=== PATIENT | female | born 1955 | race Caucasian/White ===

== ENCOUNTER 2016-04-22 18:05 | Inpatient (IN) | payer OTHER ==
[~2016-04-22] VITALS: Ht 160 cm; Wt 137.8 kg
[~2016-04-22 18:05] MED LIST: ALEN70TA2 PO; AMIO200T4 PO; ARFO15NE NEB; ATOR-14 PO; ATRINSX NEB; BUDE0.5S NEB; CALC-574 PO; CALC200S7; CITA20TA4 PO; CMD5 PO; CRFUDL PO; DILT360C22 PO; ETOMIDATE 2 MG/ML 20 ML VIAL IV ONE; FLUT0.15 INH; FRRS300 PO; FRS/40 PO; GUAI1TAB55 PO; INSDGIPEN SC; INSUINJ8 SC; IPRASOL4 INH; LCTX PO; LPR25 PO; MAGN400T6 PO; MRLP17X PO; NRN100 PO; NVLGI/PEN SQ; NVLGIPEN SQ; OXGN; POTA20TA16 PO; PRED20TA PO; PRT40 PO; ROCURONIUM BROMIDE 10 MG/ML 10 ML VIAL IV ONE; SITA50TA3 PO; SNG10 PO; TIOTCAP INH; XOPENEX INH; XPNINS31 NEB
[2016-04-22] MEDS ORDERED: NALOXONE HCL 0.4 MG/1 ML VIAL/CARP IV STA (18:14)
[2016-04-22] MEDS ORDERED: NALOXONE HCL 0.4 MG/1 ML VIAL/CARP ONE (18:15)
--- NOTE | 2016-04-22 18:17 | EMERGENCY ROOM VISIT NOTE ---
History Report prepared by Lance: Segundo Mackenzie Under the Supervision of: Dr. Ric Cantor D.O. First contact with patient: 18:06 Chief Complaint: ALTERED MENTAL STATUS Stated Complaint: ALTERED MENTAL STATUS History of Present Illness The patient is a 60 year old female who presents to the Emergency Room with complaints of persistent altered mental status that started prior to arrival. Per EMS, the patient is coming from [facility] and she is hypoglycemic. Her blood sugars are in the 30s currently. The patient is not responding well, and has a bit of wheezing bilaterally. She was started on fluids. The patient is normally on 6 liters of oxygen, but was put on 15 liters by EMS. She is on Coumadin. The patient has COPD. History is limited secondary to patient's altered mental status. Source of History: EMS, nursing staff History Limited By: other (altered mental status) Onset: Prior to arrival Position: other (global - altered mental status) Timing: other (persistent) Note: Associated symptoms: Not responding well, hypoglycemic, bit of wheezing bilaterally. Review of Systems HPI limited secondary to patient's altered mental status. 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 Cannon (4) S/P tonsillectomy and adenoidectomy (5) Status post cholecystectomy (6) Status post tubal ligation Family History Family history omitted secondary to patient's altered mental status. Social History Marital Status: Occupation Status: disabled Social History: Social history limited secondary to patient's altered mental status. Current/Historical Medications Scheduled Alendronate Sodium (Fosamax), 70 MG PO WK Amiodarone Hcl (Cordarone), 200 MG PO TID Arformoterol Tartrate (Brovana), 2 ML NEB Q12 Atorvastatin (Lipitor), 10 MG PO HS Budesonide Soln (Pulmicort Respules 0.5MG/2ML), 2 ML NEB Q12 Calcitonin (Esbon) (Miacalcin), 1 SPRAY NA DAILY Calcium Carbonate-Cholecalcife (Calcium 600+D3 600-400 mg-Unit), 1 TAB PO BID Citalopram Hydrobromide (Citalopram Hydrobromide), 20 MG PO QAM Diltiazem Hcl Extended Release (Tiazac 360 Mg), 360 MG PO DAILY Docusate Sodium (Docusate Sodium), 100 MG PO BID Ferrous Sulfate (Ferrous Sulfate), 325 MG PO TID Furosemide (Lasix), 40 MG PO BID Furosemide (Lasix), 80 MG PO BID Gabapentin (Gabapentin), 200 MG PO HS Insulin Aspart (Novolog Flexpen), 22 UNITS SQ BID Insulin Aspart (Novolog Flexpen), 18 UNITS SQ LUNCH Insulin Aspart (Novolog Flexpen), 10 UNITS SQ QPM Insulin Aspart (Novolog Flexpen), 1 DOSE SQ ACHS Insulin Glargine (Lantus Solostar), 30 UNIT SC BID Lactobacillus Acidophilus (Floranex), 1 TAB PO BID Magnesium Oxide (Mag-Ox), 400 MG PO BID Metoprolol Tartrate (Lopressor), 25 MG PO BID Montelukast Sod (Montelukast Sodium), 10 MG PO QPM Nystatin (Topical) (Nystatin), 1 DOSE TOP BID Oxygen (Oxygen), 3-6 LITERS NA UD Pantoprazole (Protonix), 40 MG PO DAILY Potassium Ext Rel (Klor-Con), 20 MEQ PO BID Prednisone (Prednisone Tab), 40 MG PO QAM Prednisone (Prednisone), 30 MG PO QAM Prednisone (Prednisone), 20 MG PO QAM Prednisone (Prednisone), 10 MG PO QAM Sennosides-Docusate Sodium (Senna S), 1 TAB PO NOON Sitagliptin (Januvia), 50 MG PO QAM Sucralfate (Sucralfate), 1 GM PO QID Umeclidinium Roxana (Incruse Ellipta), 1 PUFF PO DAILY Warfarin Sod (Coumadin), 2.5 MG PO DIRECTED Scheduled PRN Ipratropium-Albuterol (Duoneb), 1 TREATMENT INH 2-4 times/day PRN for cough/sob/ whz Polyethylene (Miralax), 17 GM PO DAILY PRN for Constipation [Xopenex], 2 PUFFS INH Q4H PRN for Shortness of Breath Allergies Coded Allergies: POLLEN (Verified Allergy, Intermediate, /, 04/22/16) Physical Exam Vital Signs Date Time Temp Pulse Resp B/P Pulse Ox O2 Delivery O2 Flow Rate FiO2 04/22/16 22:05 84/49 04/22/16 22:00 93 20 85 Mechanical Ventilator 30 04/22/16 21:59 97/47 04/22/16 21:54 95/47 04/22/16 21:49 93/47 04/22/16 21:48 40 04/22/16 21:44 95/50 04/22/16 21:39 95/49 04/22/16 21:34 97/51 04/22/16 21:30 91 28 98 Mechanical Ventilator 04/22/16 21:29 94/59 04/22/16 21:24 112/47 04/22/16 21:19 103/61 04/22/16 21:14 107/49 04/22/16 21:09 102/49 04/22/16 21:04 108/56 04/22/16 21:00 97 23 95 Mechanical Ventilator 04/22/16 20:59 108/50 04/22/16 20:54 103/66 04/22/16 20:49 94/66 04/22/16 20:44 104/54 04/22/16 20:39 108/56 04/22/16 20:34 104/50 04/22/16 20:30 87 21 98 Mechanical Ventilator 04/22/16 20:25 107/51 04/22/16 20:23 89/55 04/22/16 20:21 90/55 04/22/16 20:19 100/54 04/22/16 20:17 102/52 04/22/16 20:15 99/62 04/22/16 20:13 90/56 04/22/16 20:11 80/45 04/22/16 20:10 95 22 90 Mechanical Ventilator 40 04/22/16 20:09 92/47 04/22/16 20:07 83/43 04/22/16 20:05 86/47 04/22/16 20:03 83/46 04/22/16 20:01 89/72 04/22/16 19:59 80/51 04/22/16 19:57 88/46 04/22/16 19:55 69/42 04/22/16 19:53 86/47 04/22/16 19:51 78/45 04/22/16 19:50 101 24 98 Mechanical Ventilator 04/22/16 19:49 82/42 04/22/16 19:47 81/46 04/22/16 19:45 90/41 04/22/16 19:43 76/50 04/22/16 19:41 90/42 04/22/16 19:39 72/46 04/22/16 19:37 74/49 04/22/16 19:35 81/44 04/22/16 19:33 76/48 04/22/16 19:31 76/45 04/22/16 19:30 100 26 98 Mechanical Ventilator 04/22/16 19:13 98 77/42 04/22/16 19:11 74/45 04/22/16 19:10 94 20 96 Mechanical Ventilator 04/22/16 19:09 76/47 04/22/16 19:07 69/40 04/22/16 19:05 103 23 77/39 89 Mechanical Ventilator 04/22/16 19:03 80/39 04/22/16 19:01 81/42 04/22/16 19:00 104 22 90 04/22/16 19:00 106 30 83/43 90 Mechanical Ventilator 04/22/16 18:56 102 24 84/43 91 Mechanical Ventilator 04/22/16 18:54 102 22 75/43 92 Mechanical Ventilator 04/22/16 18:53 30 04/22/16 18:48 106 24 85/52 92 Mechanical Ventilator 04/22/16 18:48 91 Mechanical Ventilator 04/22/16 18:28 110 24 130/59 99 Non-Rebreather 15.0 04/22/16 18:17 103 04/22/16 18:05 106 24 141/65 100 Non-Rebreather Physical Exam GENERAL: Patient is obtunded, responds to painful and loud verbal stimuli by opening eyes but not answering. EYES: Pupils constricted bilaterally. Patient looks around room. EARS, NOSE, MOUTH AND THROAT: The nose is without any evidence of any deformity. Mucous membranes are moist tongue is midline NECK: The neck is nontender and supple. RESPIRATORY: Lung sounds diminished throughout, expiratory wheezing in all mckeon with prolonged expiratory phase noted. CARDIOVASCULAR: Regular rate and rhythm noted there no murmurs rubs or gallops normal S1 normal S2 GASTROINTESTINAL: Significant abdominal breathing noted. MUSCULOSKELETAL/EXTREMITIES: There is no evidence of gross deformity full range of motion is noted in the hips and shoulders SKIN: Pedal edema bilaterally. NEUROLOGIC: GCS of 6. Medical Decision & Procedures ER Provider Diagnostic Interpretation: X-ray results as stated below per interpretation by me and the radiologist. CHEST ONE VIEW PORTABLE HISTORY: Sepsis COMPARISON: Chest 04/14/2016. FINDINGS: Endotracheal tube terminates 2.9 cm from the estella. Right jugular Port-A-Cath terminates in the SVC. Metallic fiducial markers are noted within the left upper lobe. No pneumothorax. The heart remains mildly enlarged. Bilateral pleural effusions and bibasilar densities have improved. Pulmonary edema has also slightly improved. There is a new linear density within the right mid to lower lung zone which may represent atelectasis. Left upper lobe nodularity persists. IMPRESSION: 1. Improvement in the pulmonary edema and bibasilar densities/effusions. 2. Satisfactory support line placement. Electronically signed by: Glen Magana M.D. 04/22/2016 6:55 PM CHEST ONE VIEW PORTABLE HISTORY: central line placement COMPARISON: Chest 04/22/2016. FINDINGS: There has been interval placement left jugular central venous catheter which terminates in the SVC. No pneumothorax. Right jugular Port-A-Cath in the endotracheal tube remain unchanged in position. Mild pulmonary edema, cardiomegaly, and bibasilar densities persist. IMPRESSION: 1. Satisfactory support line placement. No pneumothorax. 2. Pulmonary edema, basilar densities and small bilateral pleural effusions persist. Electronically signed by: Glen Magana M.D. 04/22/2016 8:37 PM Laboratory Results Test 04/22/16 18:15 04/22/16 18:22 04/22/16 18:30 04/22/16 21:04 Neutrophils % (Manual) 70.5 % Lymphocytes % (Manual) 1.7 % Monocytes % (Manual) 1.7 % Metamyelocytes % 14.8 % Myelocytes % 11.3 % Neutrophils # (Manual) 5.76 K/uL (1.4-6.5) Total Absolute Neutrophils 5.76 K/uL (1.4-6.5) Lymphocytes # (Manual) 0.14 K/uL (1.2-3.4) Total Absolute Lymphocytes 0.14 K/uL (1.2-3.4) Monocytes # (Manual) 0.14 K/uL (0.11-0.59) Metamyelocytes # 1.21 K/uL (0-0) Myelocytes # 0.92 K/uL (0-0) Basophilic Stippling 1+ Stomatocytes 2+ Erythrocyte Sedimentation Rate 17 mm/hr (0-21) Activated Partial Thromboplast Time 34.5 SECONDS (21.0-31.0) Partial Thromboplastin Ratio 1.3 Total Bilirubin 1.1 mg/dl (0.2-1) Aspartate Amino Transf (AST/SGOT) 44 U/L (15-37) Alanine Aminotransferase (ALT/SGPT) 86 U/L (12-78) Alkaline Phosphatase 171 U/L (45-117) Total Creatine Kinase 20 U/L (26-192) Creatine Kinase MB 0.5 ng/ml (0.5-3.6) Creatine Kinase MB Ratio 2.5 (0-3.0) Troponin I 0.036 ng/ml (0-0.045) C-Reactive Protein 12.70 mg/dl (0-0.29) Pro-B-Type Natriuretic Peptide 851 pg/ml (0-900) Total Protein 5.2 gm/dl (6.4-8.2) Albumin 2.6 gm/dl (3.4-5.0) Globulin 2.6 gm/dl (2.5-4.0) Albumin/Globulin Ratio 1.0 (0.9-2) Lipase 88 U/L (73-393) Bedside Lactic Acid Venous 1.83 mmol/L (0.90-1.70) Venous Blood pH 7.35 (7.36-7.41) Venous Blood Partial Pressure CO2 96 mmHg (38.0-50.0) Venous Blood Partial Pressure O2 78 mmHg Venous Blood HCO3 52 mmol/L Venous Blood Oxygen Saturation 93.3 % Venous Blood Base Excess 23.0 mmol/L Urine Color ORANGE Urine Appearance CLEAR (CLEAR) Urine pH 6.0 (4.5-7.5) Urine Specific [place] 1.025 (1.000-1.030) Urine Protein 1+ (NEG) Urine Glucose (UA) NEG (NEG) Urine Ketones NEG (NEG) Urine Occult Blood NEG (NEG) Urine Nitrite POS (NEG) Urine Bilirubin NEG (NEG) Urine Urobilinogen NEG (NEG) Urine Leukocyte Esterase TRACE (NEG) Urine WBC (Auto) 1-5 /hpf (0-5) Urine RBC (Auto) 0-4 /hpf (0-4) Urine Hyaline Casts (Auto) 10-30 /lpf (0-5) Urine Epithelial Cells (Auto) >30 /lpf (0-5) Urine Bacteria (Auto) 1+ (NEG) Urine Renal Epithelial Cells 0-5 /lpf (0-5) Urine Opiates Screen POS (NEG) Urine Methadone, Qualitative NEG (NEG) Urine Barbiturates NEG (NEG) Urine Phencyclidine (PCP) Level NEG (NEG) Ur Amphetamine/Methamphetamine NEG (NEG) MDMA (Ecstasy) Screen NEG (NEG) Urine Benzodiazepines Screen POS (NEG) Urine Cocaine Metabolite NEG (NEG) Urine Marijuana (THC) NEG (NEG) Date/Time Source Procedure Growth Status 04/22/16 00:00 Nasal MRSA DNA Surveillance Screen - Final Specimen Negative for MRSA by DNA Probe Complete Laboratory results per my review. Medications Administered Medications (Trade) Dose Ordered Sig/Tez Route Start Time Stop Time Status Last Admin Dose Admin Naloxone HCl (Narcan Inj) 0.4 mg STK-MED ONCE .ROUTE 04/22/16 18:15 04/22/16 18:16 DC 04/22/16 18:15 0.4 MG Miscellaneous (Rapid Sequence Induction Bag) 1 ea STK-MED ONCE N/A 04/22/16 18:23 04/22/16 18:24 DC 04/22/16 18:23 1 EA Propofol 1 dose 1 dose STK-MED ONCE IV 04/22/16 18:38 04/22/16 18:39 DC 04/22/16 18:47 1 DOSE Sodium Chloride (Nss 1000ml) 1,000 ml @ 999 mls/hr Q1H1M STAT IV 04/22/16 19:16 04/22/16 20:16 DC 04/22/16 19:31 999 MLS/HR Midazolam HCl 2 mg 2 mg STK-MED ONCE .ROUTE 04/22/16 19:22 04/22/16 19:23 DC 04/22/16 19:32 2 MG Phenylephrine HCl/ Dextrose (Rosalino-Synephrine Inj/D5W 500ml) 502 ml @ 0 mls/hr Q0M PRN IV 04/22/16 19:45 04/23/16 00:04 DC 04/22/16 20:10 103 MLS/HR Levofloxacin (Levaquin / D5w) 750 mg NOW STAT IV 04/22/16 20:01 04/22/16 20:02 DC 04/22/16 20:23 750 MG Midazolam HCl (Versed Inj) 2 mg STK-MED ONCE .ROUTE 04/22/16 21:30 04/22/16 21:31 DC 04/22/16 21:38 2 MG Procedure Central Venous Catheter Indication: Hypotension and altered mental status. Catheter type: Triple lumen. Location: Left IJ. Verbal consent was obtained after the risks and benefits were explained, including but not limited to pneumothorax, hemothorax, vessel injury, bleeding, scarring, infection, pain, and bone/joint/nerve damage. At this time, the risks of the procedure are less than the risks of NOT performing the procedure. A time out was taken and the correct patient and site identified. The patient was placed in the supine position and the skin was prepped in the standard fashion with chlorhexidine and full sterile drapes applied. The proper landmarks were identified with ultrasound, anesthetized with 1% lidocaine without epinephrine, and the needle was inserted through the skin in the standard fashion. The needle was carefully advanced into blood vessel lumen under ultrasound guidance. The guidewire was placed uneventfully. The vessel is dilated and the catheter was placed. It was sutured into position. There was good blood return from all ports. The patient tolerated the procedure well and there were no complications. Post procedure x-ray was normal. ECG Indication: other (altered mental status) Rate (beats per minute): 99 Rhythm: atrial fibrillation, other (poor baseline) Findings: no ectopy, other (diffuse ST segment abnormalities noted) Comparison ECG Date: decreased rate otherwise no significant change from April 12 ED Course 1808: The patient was evaluated in room C8. A complete history and physical examination were performed. 1813: Ordered Narcan Inj 0.4 mg IV. 1915: Ordered NSS 1000 ml @ 999 mls/hr IV. 1956: I discussed the patient with Charis Roberts - she will evaluate the patient for further treatment. 1919: Ordered Versed Inj 2 mg IV. 2000: Ordered Levaquin / D5w 750 mg IV. 2100: I reevaluated the patient. The patient verbally expressed agreement and understanding of the treatment plan. The patient will be evaluated for further treatment. Medical Decision Differential diagnosis: Etiologies such as infections, reactive airway disease, pneumonia, pneumothorax , COPD, CHF, cardiac ischemia, pulmonary embolism, musculoskeletal, gastrointestinal, as well as others were entertained. Nursing notes reviewed. Additional history is obtained from the prehospital personnel. The patient is a 60-year-old female who presented to the emergency department for altered mental status. The patient was found to be in extremis. She was obtunded. She has a history of CHF as well as obstructive sleep apnea. The patient was intubated upon arrival because she was not protecting her airway. The patient started to respond after intubation but her blood pressure dropped significantly. She was treated with a fluid bolus but then placed on pressors after a central line was placed. The patient was reevaluated multiple times. We tried to add sedation to the patient's regimen but because of her hypotension we were careful with the sedation. I discussed his case with the on-call [facility] is group. They're familiar with the patient. They've agreed to evaluate patient in the emergency apartment for further management and disposition. Consults Time Called: 1952 Consulting Physician: Charis Roberts Returned Call: 1956 I discussed the patient with Charis Roberts - she will evaluate the patient for further treatment. Impression Primary Impression: Altered mental status Additional Impressions: Sepsis, Respiratory failure Critical Care I have personally spent greater than 60 minutes of critical care time in the direct management of this patient. This includes bedside care, interpretation of diagnostic studies, and testing, discussion with consultants, patient, and family members, and other required patient management activities. This 60 minutes is in excess of all separately billable procedures. Scribe Attestation The scribe's documentation has been prepared under my direction and personally reviewed by me in its entirety. I confirm that the note above accurately reflects all work, treatment, procedures, and medical decision making performed by me. Departure Information Dispostion Being Evaluated By Hospitalist Patient Instructions A Signature Page, My [facility]
[2016-04-22] MEDS ORDERED: RAPID SEQUENCE INDUCTION BAG ONE (18:23)
[2016-04-22] MEDS ORDERED: PROPOFOL IV EMULSION 10 MG/ML 100 ML VIAL IV ONE (18:38)
[2016-04-22 18:51] LABS: VEN BLD GAS O2 SATURATION 93.3 %
[2016-04-22] MEDS ORDERED: PROPOFOL IV EMULSION 10 MG/ML 100 ML VIAL IV STA (18:53)
--- NOTE | 2016-04-22 18:57 | DIAGNOSTIC IMAGING REPORT ---
CHEST ONE VIEW PORTABLE HISTORY: Sepsis COMPARISON: Chest 04/14/2016. FINDINGS: Endotracheal tube terminates 2.9 cm from the estella. Right jugular Port-A-Cath terminates in the SVC. Metallic fiducial markers are noted within the left upper lobe. No pneumothorax. The heart remains mildly enlarged. Bilateral pleural effusions and bibasilar densities have improved. Pulmonary edema has also slightly improved. There is a new linear density within the right mid to lower lung zone which may represent atelectasis. Left upper lobe nodularity persists. IMPRESSION: 1. Improvement in the pulmonary edema and bibasilar densities/effusions. 2. Satisfactory support line placement. Electronically signed by: Glen Magana M.D. 04/22/2016 6:55 PM
[2016-04-22 18:58] LABS: INR 2.1 (0.9-1.1); PARTIAL THROMBOPLASTIN RATIO 1.3; PROTHROMBIN TIME (PATIENT) 22.8 SECONDS (9.0-12.0)
[2016-04-22] MEDS ORDERED: CLC100 PO (19:11)
[2016-04-22 19:12] LABS: ALT/SGPT 86 U/L (12-78); BLOOD UREA NITROGEN 30 mg/dl (7-18); BUN/CREATININE RATIO 39.5 (10-20); CALCIUM 7.9 mg/dl (8.5-10.1); CHLORIDE 92 mmol/L (98-107); CREATININE 0.76 mg/dl (0.60-1.20); GLUCOSE 124 mg/dl (70-99); MAGNESIUM 1.8 mg/dl (1.8-2.4); POTASSIUM 3.2 mmol/L (3.5-5.1); SODIUM 144 mmol/L (136-145)
[2016-04-22 19:15] LABS: HEMATOCRIT 32.3 % (37-47); MEAN CELL VOLUME 102.2 fL (80-100); MEAN CORPUSCULAR HEMOGLOBIN 26.9 pg (25-34); MEAN CORPUSCULAR HGB CONC 26.3 g/dl (32-36); MEAN PLATELET VOLUME 9.1 fL (7.4-10.4); PLATELET COUNT 181 K/uL (130-400); RED BLOOD COUNT 3.16 M/uL (4.2-5.4); WHITE BLOOD COUNT 8.17 K/uL (4.8-10.8)
[2016-04-22 19:16] LABS: ALKALINE PHOSPHATASE 171 U/L (45-117); AST/SGOT 44 U/L (15-37); CKMB/CK RATIO 2.5 (0-3.0); PHOSPHORUS 2.2 mg/dl (2.5-4.9)
[2016-04-22] MEDS ORDERED: SODIUM CHLORIDE 0.9% 1000ML 1,000 ML IV STA (19:16)
[2016-04-22] MEDS ORDERED: NVLGI/PEN SQ ×2 (19:17→19:26)
[2016-04-22] MEDS ORDERED: MIDAZOLAM HCL 5 MG/ML 1 ML VIAL IV STA (19:20)
[2016-04-22] MEDS ORDERED: MIDAZOLAM HCL 1 MG/ML 2ML VIAL ONE ×3 (19:22→22:38)
[2016-04-22] MEDS ORDERED: PANT40TA PO (19:23)
[2016-04-22] MEDS ORDERED: NYST1POW7 TOP (19:23)
[2016-04-22 19:32] LABS: COMPLETE YES; HYPOCHROMIA PRESENT; LYMPH ABS # 0.14 K/uL (1.2-3.4); LYMPHOCYTE % 1.7 %; META ABS # 1.21 K/uL (0-0); METAMYELOCYTE % 14.8 %; MYELOCYTE % 11.3 %; NEUTROPHILS % 70.5 %; POLYCHROMASIA 1+; STOMATOCYTE 2+
[2016-04-22] MEDS ORDERED: PRED20TA PO (19:34)
[2016-04-22] MEDS ORDERED: PRED20TA2 PO (19:34)
[2016-04-22] MEDS ORDERED: PRED10TA PO (19:34)
[2016-04-22] MEDS ORDERED: SENN-91 PO (19:36)
[2016-04-22] MEDS ORDERED: UMEC1INH PO (19:38)
[2016-04-22] MEDS ORDERED: FURO80TA63 PO (19:43)
[2016-04-22] MEDS ORDERED: PHENYLEPHRINE HCL INJ 20 MG in DEXTROSE 5% 500ML 500 ML IV PRN ×2 (19:45→22:27)
[2016-04-22 19:52] LABS: CARBON DIOXIDE 54 mmol/L (21-32)
[2016-04-22] MEDS ORDERED: LEVAQUIN 750MG / 150ML D5W IV STA (20:01)
--- NOTE | 2016-04-22 20:38 | DIAGNOSTIC IMAGING REPORT ---
CHEST ONE VIEW PORTABLE HISTORY: central line placement COMPARISON: Chest 04/22/2016. FINDINGS: There has been interval placement left jugular central venous catheter which terminates in the SVC. No pneumothorax. Right jugular Port-A-Cath in the endotracheal tube remain unchanged in position. Mild pulmonary edema, cardiomegaly, and bibasilar densities persist. IMPRESSION: 1. Satisfactory support line placement. No pneumothorax. 2. Pulmonary edema, basilar densities and small bilateral pleural effusions persist. Electronically signed by: Glen Magana M.D. 04/22/2016 8:37 PM
[2016-04-22 21:41] LABS: BENZODIAZEPINE, URINE POS (NEG); COCAINE,URINE NEG (NEG); PHENCYCLIDINE, URINE NEG (NEG)
[2016-04-22 22:00] LABS: URINE APPEARANCE CLEAR (CLEAR); URINE COLOR ORANGE; URINE EPITHELIAL CELL AUTO >30 /lpf (0-5); URINE NITRITE POS (NEG); URINE SPECIFIC GRAVITY 1.025 (1.000-1.030); UROBILINOGEN NEG (NEG); ZZURINE CULT IF INDIC CATH NO
[2016-04-22 22:01] LABS: MANUAL MICROSCOPIC REQUIRED? NO; REVIEW REQ? YES
[2016-04-22 22:06] LABS: URINE BILIRUBIN NEG (NEG)
[2016-04-22] MEDS ORDERED: DEXTROSE 50% 50 ML SYR IV PRN (22:45)
[2016-04-22] MEDS ORDERED: GLUCAGON FOR INJ 1 MG VIAL SQ PRN (22:45)
[2016-04-22] MEDS ORDERED: POTASSIUM PHOS 3 MMOL/1 ML INFUSION IV SCH (22:45)
[2016-04-22] MEDS ORDERED: GLUCOSE 10 TABS/TUBE PO PRN (22:45)
[2016-04-22] MEDS ORDERED: GLUCOSE 40% GEL 15 GM TUBE PO PRN (22:45)
--- NOTE | 2016-04-22 22:59 | DIAGNOSTIC IMAGING REPORT ---
HEAD CT NONCONTRAST CT DOSE: 1646.23 mGy.cm HISTORY: Altered mental status. TECHNIQUE: Multiaxial CT images of the head were performed without the use of intravenous contrast. Automated exposure control was utilized for this study. Comparison: Head CT 07/13/2015. Findings: An endotracheal tube is partially visualized. Trace fluid within the sphenoid sinus and nasal cavity. Near complete opacification of the bilateral mastoid air cells. The calvarium and skull base are intact. The ventricles and sulci are within normal limits. There is no mass, hematoma, midline shift, or acute infarct. Impression: No acute intracranial abnormality. Bilateral mastoid effusions. Electronically signed by: Glen Magana M.D. 04/22/2016 10:57 PM
[2016-04-22] MEDS ORDERED: FENTANYL 1250MCG/250ML NSS 250 ML IV PRN (23:00)
[2016-04-22] MEDS ORDERED: FENTANYL CITRATE 1250MCG/250ML NSS ONE (23:12)
[2016-04-22 23:20] VITALS: BP 90/67; PULSE 103; TEMP 37.6; O2SAT 90; Ht 160 cm; Wt 137.8 kg
[2016-04-23] VITALS (56 sets, daily range): BP systolic 62–143; BP diastolic 25–81; PULSE 89–130; TEMP 37.1–38.3; O2SAT 82–98
[2016-04-23] MEDS ORDERED: FUROSEMIDE INJ 40 MG in SYRINGE 0 ML IV STA (00:05)
[2016-04-23] MEDS ORDERED: METHYLPREDNISOLONE IV 125 MG in SYRINGE 0 ML IV STA (00:06)
[2016-04-23] MEDS ORDERED: MIDAZOLAM HCL 1 MG/ML 2ML VIAL IV STA (00:12)
[2016-04-23] MEDS ORDERED: PHARMACY GLYCEMIC MGMT CONSULT PRN (00:12)
[2016-04-23] MEDS ORDERED: VANCOMYCIN CONSULT ACTIVE PRN (00:15)
[2016-04-23] MEDS ORDERED: PIPERACILL/TAZOBAC CONSULT ACTIVE PRN (00:30)
[2016-04-23] MEDS ORDERED: POTASSIUM PHOSPHATE INJ 21 MMOL in SODIUM CHLORIDE 0.9% 500ML 500 ML IV SCH (00:30)
[2016-04-23] MEDS ORDERED: PIPERACILL/TAZOBAC IV 4.5 GM in DEXTROSE 5% 100ML IV SCH (01:00)
[2016-04-23] MEDS ORDERED: LEVOFLOXACIN CONSULT ACTIVE PRN (01:00)
[2016-04-23] MEDS ORDERED: VANCOMYCIN INJ 2,800 MG in SODIUM CHLORIDE 0.9% 500ML 500 ML IV SCH (02:00)
[2016-04-23 02:03] LABS: BUN/CREATININE RATIO 42.3 (10-20); CALCIUM 7.9 mg/dl (8.5-10.1); CREATININE 0.69 mg/dl (0.60-1.20); POTASSIUM 3.6 mmol/L (3.5-5.1)
[2016-04-23] MEDS ORDERED: INSULIN ASPART 100 UNITS/ML 3 ML PEN SC SCH (03:00)
[2016-04-23] MEDS: PIPERACILL/TAZOBAC IV 4.5 GM in DEXTROSE 5% 100ML IV SCH ×3 (05:39→22:29)
[2016-04-23] MEDS: INSULIN ASPART 100 UNITS/ML 3 ML PEN SC SCH ×4 (06:00→19:56)
[2016-04-23 06:38] LABS: PROTHROMBIN TIME (PATIENT) 22.2 SECONDS (9.0-12.0)
[2016-04-23 07:33] LABS: BUN/CREATININE RATIO 38.9 (10-20); CREATININE 0.7 mg/dl (0.60-1.20); MAGNESIUM 1.6 mg/dl (1.8-2.4); PHOSPHORUS 2.9 mg/dl (2.5-4.9); POTASSIUM 4.2 mmol/L (3.5-5.1)
--- NOTE | 2016-04-23 07:49 | DIAGNOSTIC IMAGING REPORT ---
SINGLE VIEW CHEST CLINICAL HISTORY: CHF. FINDINGS: An AP, portable, upright chest radiograph is compared to study dated 04/22/2016. Correlation is made with chest CT dated 02/18/2016. The examination is degraded by portable technique, large body habitus, and patient rotation. A right subclavian central venous infusion port is unchanged in position, as are an endotracheal tube and a left internal jugular central venous catheter PA the heart is enlarged and there is atherosclerotic calcification of the thoracic aorta. Pulmonary vascular congestion and interstitial edema are similar appearance to yesterday. Emphysema is noted. Small pleural effusions and bibasilar consolidation are identified. Fiducials and nodularity in the left upper chest are unchanged from previous. No pneumothorax is seen. The skeletal structures are osteopenic. The bony thorax is grossly intact. IMPRESSION: 1. Cardiomegaly with evidence of congestive failure and interstitial edema. This is unchanged yesterday. 2. Pleural effusions and bibasilar consolidation, also unchanged. 3. Stable lines and tubes. Electronically signed by: Cyril Solorzano M.D. 04/23/2016 7:47 AM
[2016-04-23] MEDS: ARFORMOTEROL TART 15MCG/2ML VIAL INH SCH ×2 (08:05→19:35)
[2016-04-23] MEDS: BUDESONIDE 0.5 MG/2 ML VIAL (PULMICORT) INH SCH ×2 (08:05→19:35)
[2016-04-23 08:43] LABS: BASO % 0.1 %; BASO ABS # 0.02 K/uL (0-0.2); COMPLETE YES; EOS % 0.1 %; HEMATOCRIT 30.2 % (37-47); IG% 1.9 %; LYMPH % 0.7 %; MEAN CELL VOLUME 100.3 fL (80-100); MEAN CORPUSCULAR HEMOGLOBIN 26.6 pg (25-34); MEAN CORPUSCULAR HGB CONC 26.5 g/dl (32-36); MEAN PLATELET VOLUME 9.1 fL (7.4-10.4); MONO % 1.8 %; NEUT % 95.4 %; PLATELET COUNT 164 K/uL (130-400); RED BLOOD COUNT 3.01 M/uL (4.2-5.4); WHITE BLOOD COUNT 13.84 K/uL (4.8-10.8)
[2016-04-23 08:47] LABS: ANISOCYTOSIS PRESENT; DOHLE BODIES 1+; HYPOCHROMIA PRESENT; POLYCHROMASIA 2+; TOXIC GRANULATION 1+
[2016-04-23] MEDS: NYSTATIN POWDER 15GM BTL EXT SCH ×2 (09:00→20:04)
[2016-04-23] MEDS ORDERED: METOPROLOL TARTRATE 25 MG TAB PO SCH (09:00)
[2016-04-23] MEDS ORDERED: INSULIN GLARGINE SOLOSTAR 100 UNITS/ML 3 ML PEN SC ONE (09:00)
[2016-04-23] MEDS ORDERED: DILTIAZEM HCL (TIAzac) 180 MG CAPCR PO SCH (09:00)
--- NOTE | 2016-04-23 09:17 | History and Physical ---
History & Physical Date & Time of Service: Apr 23, 2016 at 09:03 Delayed entry date of service 04/22/16 Chief Complaint: Respiratory Failure Primary Care Physician: Gogo Shannon History of Present Illness Source: patient, clinic records, hospital records 60 year old female with history of Chronic Respiratory Failure, COPD, Obstructive Sleep Apnea, Obesity Hypoventilation Syndrome, CHF Diastolic Type, presenting with progressive shortness of breath x few days. Patient was recently discharged from [facility] last 04/16/16 for respiratory failure , felt to be from Bipap Noncompliance. She was discharged with Prednisone course. History obtained from ER records as patient was intubated. Attempted to call patient's but no answer. Patient apparently was reporting increased shortness of breath and cough for the past few days. On the day of admission, patient had worsening shortness of breath. She was also found to be hypoglycemic in the 30s. EMS summoned, patient given Dextrose. At the ER, patient was found to be more obtunded and in respiratory distress. She was intubated and started on Propofol. However, patient was then noted to be hypotensive and had to be started on Phenylephrine. When I examined the patient, she opens her eyes to verbal stimuli and follows simple commands- open/close eyes, squeeze examiner's fingers. 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[facility] 2013 Status: Chronic (3) Depression Status: Chronic (4) Diabetes mellitus, type II Status: Chronic (5) Diastolic CHF, chronic Status: Chronic (6) Gastroesophageal reflux disease Status: Chronic (7) GI (gastrointestinal bleed) Status: Chronic (8) HTN (hypertension) Status: Chronic (9) Osteoporosis Status: Chronic (10) Proteinuria Status: Chronic (11) Respiratory failure, chronic Permanent Comment: O2 / BiPAP / steroid dependent Status: Chronic (12) Sleep apnea Permanent Comment: BiPAP 01/10 with O2 6 LPM Status: Chronic (13) SOB (shortness of breath) Status: Chronic (14) 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 Permanent Comment: Oxygen and steroid dependent COPD Recurrent pneumonia Finding of a left upper lobe nodule Status post bronchoscopy and biopsy 07/03/2015 revealing a well-differentiated squamous cell carcinoma Placement of fiducial markers Status post completion of radiation therapy utilizing SBRT 11/14/2015 received 5000 cGy Status: Chronic (15) Symptomatic anemia Status: Chronic Surgical Problems: (1) H/O colonoscopy Permanent Comment: 09/2014 - diverticulosis Status: Chronic (2) H/O esophagogastroduodenoscopy Permanent Comment: 05/2015 - non bleeding gastric ulcers Status: Chronic (3) Navigational Bronchoscopy 07-04-2015 Dr. Cannon Status: Resolved (4) S/P tonsillectomy and adenoidectomy Status: Chronic (5) Status post cholecystectomy Status: Chronic (6) Status post tubal ligation Status: Chronic Family History Diabetes mellitus MOTHER SISTER FH: CHF (congestive heart failure) FATHER FH: COPD (chronic obstructive pulmonary disease) FATHER Hypertension Kidney disease Social History Smoking Status: Former Smoker Drug Use: none Marital Status: Housing status: lives with family Occupational Status: disabled Immunizations History of Influenza Vaccine: Yes Influenza Vaccine Date: Feb 12, 2015 History of Tetanus Vaccine?: Yes Tetanus Immunization Date: Nov 30, 2007 History of Pneumococcal: Yes Pneumococcal Date: Feb 12, 2015 History of Hepatitis B Vaccine: No Allergies Coded Allergies: POLLEN (Verified Allergy, Intermediate, /, 04/22/16) Home Medications Scheduled Alendronate Sodium (Fosamax), 70 MG PO WK Amiodarone Hcl (Cordarone), 200 MG PO TID Arformoterol Tartrate (Brovana), 2 ML NEB Q12 Atorvastatin (Lipitor), 10 MG PO HS Budesonide Soln (Pulmicort Respules 0.5MG/2ML), 2 ML NEB Q12 Calcitonin ([place]) (Miacalcin), 1 SPRAY NA DAILY Calcium Carbonate-Cholecalcife (Calcium 600+D3 600-400 mg-Unit), 1 TAB PO BID Citalopram Hydrobromide (Citalopram Hydrobromide), 20 MG PO QAM Diltiazem Hcl Extended Release (Tiazac 360 Mg), 360 MG PO DAILY Docusate Sodium (Docusate Sodium), 100 MG PO BID Ferrous Sulfate (Ferrous Sulfate), 325 MG PO TID Furosemide (Lasix), 40 MG PO BID Furosemide (Lasix), 80 MG PO BID Gabapentin (Gabapentin), 200 MG PO HS Insulin Aspart (Novolog Flexpen), 22 UNITS SQ BID Insulin Aspart (Novolog Flexpen), 18 UNITS SQ LUNCH Insulin Aspart (Novolog Flexpen), 10 UNITS SQ QPM Insulin Aspart (Novolog Flexpen), 1 DOSE SQ ACHS Insulin Glargine (Lantus Solostar), 30 UNIT SC BID Lactobacillus Acidophilus (Floranex), 1 TAB PO BID Magnesium Oxide (Mag-Ox), 400 MG PO BID Metoprolol Tartrate (Lopressor), 25 MG PO BID Montelukast Sod (Montelukast Sodium), 10 MG PO QPM Nystatin (Topical) (Nystatin), 1 DOSE TOP BID Oxygen (Oxygen), 3-6 LITERS NA UD Pantoprazole (Protonix), 40 MG PO DAILY Potassium Ext Rel (Klor-Con), 20 MEQ PO BID Prednisone (Prednisone Tab), 40 MG PO QAM Prednisone (Prednisone), 30 MG PO QAM Prednisone (Prednisone), 20 MG PO QAM Prednisone (Prednisone), 10 MG PO QAM Sennosides-Docusate Sodium (Senna S), 1 TAB PO NOON Sitagliptin (Januvia), 50 MG PO QAM Sucralfate (Sucralfate), 1 GM PO QID Umeclidinium [place] (Incruse Ellipta), 1 PUFF PO DAILY Warfarin Sod (Coumadin), 2.5 MG PO DIRECTED Scheduled PRN Ipratropium-Albuterol (Duoneb), 1 TREATMENT INH 2-4 times/day PRN for cough/sob/ whz Polyethylene (Miralax), 17 GM PO DAILY PRN for Constipation [Xopenex], 2 PUFFS INH Q4H PRN for Shortness of Breath Review of Systems difficult to assess as patient is intubated Physical Exam Vital Signs Date Time Temp Pulse Resp B/P Pulse Ox O2 Delivery O2 Flow Rate FiO2 04/23/16 06:00 38.3 109 25 109/63 93 Mechanical Ventilator 40 04/23/16 05:22 40 04/23/16 04:00 40 04/23/16 04:00 96 Mechanical Ventilator 40 04/23/16 04:00 38.1 95 20 94/55 96 Mechanical Ventilator 40 04/23/16 02:53 40 04/23/16 02:00 37.8 95 21 95/61 95 Mechanical Ventilator 40 04/23/16 00:36 40 04/23/16 00:01 93 Mechanical Ventilator 04/23/16 00:01 93 Mechanical Ventilator 40 04/23/16 00:01 40 04/23/16 00:01 37.6 98 23 100/45 93 Mechanical Ventilator 40 04/22/16 23:20 37.6 103 29 90/67 90 Mechanical Ventilator 40 04/22/16 22:29 113/54 04/22/16 22:24 114/56 04/22/16 22:19 84 20 94/61 95 04/22/16 22:17 84 04/22/16 22:14 108/54 98 Mechanical Ventilator 40 04/22/16 22:09 94/56 04/22/16 22:05 84/49 04/22/16 22:00 93 20 85 Mechanical Ventilator 30 04/22/16 21:59 97/47 04/22/16 21:54 95/47 04/22/16 21:49 93/47 04/22/16 21:48 40 04/22/16 21:44 95/50 04/22/16 21:39 95/49 04/22/16 21:34 97/51 04/22/16 21:30 91 28 98 Mechanical Ventilator 04/22/16 21:29 94/59 04/22/16 21:24 112/47 04/22/16 21:19 103/61 04/22/16 21:14 107/49 04/22/16 21:09 102/49 04/22/16 21:04 108/56 04/22/16 21:00 97 23 95 Mechanical Ventilator 04/22/16 20:59 108/50 04/22/16 20:54 103/66 04/22/16 20:49 94/66 04/22/16 20:44 104/54 04/22/16 20:39 108/56 04/22/16 20:34 104/50 04/22/16 20:30 87 21 98 Mechanical Ventilator 04/22/16 20:25 107/51 04/22/16 20:23 89/55 04/22/16 20:21 90/55 04/22/16 20:19 100/54 04/22/16 20:17 102/52 04/22/16 20:15 99/62 04/22/16 20:13 90/56 04/22/16 20:11 80/45 04/22/16 20:10 95 22 90 Mechanical Ventilator 40 04/22/16 20:09 92/47 04/22/16 20:07 83/43 04/22/16 20:05 86/47 04/22/16 20:03 83/46 04/22/16 20:01 89/72 04/22/16 19:59 80/51 04/22/16 19:57 88/46 04/22/16 19:55 69/42 04/22/16 19:53 86/47 04/22/16 19:51 78/45 04/22/16 19:50 101 24 98 Mechanical Ventilator 04/22/16 19:49 82/42 04/22/16 19:47 81/46 04/22/16 19:45 90/41 04/22/16 19:43 76/50 04/22/16 19:41 90/42 04/22/16 19:39 72/46 04/22/16 19:37 74/49 04/22/16 19:35 81/44 04/22/16 19:33 76/48 04/22/16 19:31 76/45 04/22/16 19:30 100 26 98 Mechanical Ventilator 04/22/16 19:13 98 77/42 04/22/16 19:11 74/45 04/22/16 19:10 94 20 96 Mechanical Ventilator 04/22/16 19:09 76/47 04/22/16 19:07 69/40 04/22/16 19:05 103 23 77/39 89 Mechanical Ventilator 04/22/16 19:03 80/39 04/22/16 19:01 81/42 04/22/16 19:00 104 22 90 04/22/16 19:00 106 30 83/43 90 Mechanical Ventilator 04/22/16 18:56 102 24 84/43 91 Mechanical Ventilator 04/22/16 18:54 102 22 75/43 92 Mechanical Ventilator 04/22/16 18:53 30 04/22/16 18:48 106 24 85/52 92 Mechanical Ventilator 04/22/16 18:48 91 Mechanical Ventilator 04/22/16 18:28 110 24 130/59 99 Non-Rebreather 15.0 04/22/16 18:17 103 04/22/16 18:05 106 24 141/65 100 Non-Rebreather General Appearance: WD/WN, + pertinent finding (intubated, not in distress, no accessory muscle use) Head: normocephalic, atraumatic Eyes: normal inspection, PERRL, EOMI, sclerae normal ENT: hearing grossly normal, + pertinent finding ((+) intubated) Neck: no adenopathy, thyroid normal, + pertinent finding (JVD) Respiratory/Chest: + pertinent finding ((+) bilateral crackles, wheezing) Cardiovascular: + irregularly irregular, + pertinent finding (mild lower leg edema, wrapped with dressing) Abdomen/GI: normal bowel sounds, non tender, soft Extremities/Musculoskelatal: + pertinent finding (mild lower leg edema, wrapped with dressing) Neurologic/Psych: + pertinent finding (pupils equal round reactive to light, moves all extremities equally) Skin: normal color, warm/dry Lymphatic: no adenopathy Diagnostics Laboratory Results Results Past 24 Hours Test 04/22/16 18:15 04/22/16 18:22 04/22/16 18:30 04/22/16 21:04 Range/Units White Blood Count 8.17 4.8-10.8 K/uL Red Blood Count 3.16 4.2-5.4 M/uL Hemoglobin 8.5 12.0-16.0 g/dL Hematocrit 32.3 37-47 % Mean Corpuscular Volume 102.2 80-100 fL Mean Corpuscular Hemoglobin 26.9 25-34 pg Mean Corpuscular Hemoglobin Concent 26.3 32-36 g/dl Platelet Count 181 130-400 K/uL Mean Platelet Volume 9.1 7.4-10.4 fL RDW Standard Deviation 76.7 36.4-46.3 fL RDW Coefficient of Variation 20.5 11.5-14.5 % Nucleated RBC Absolute Count (auto) 0.24 0-0 K/uL Neutrophils % (Manual) 70.5 % Lymphocytes % (Manual) 1.7 % Monocytes % (Manual) 1.7 % Metamyelocytes % 14.8 % Myelocytes % 11.3 % Nucleated Red Blood Cells % 2.9 % Neutrophils # (Manual) 5.76 1.4-6.5 K/uL Total Absolute Neutrophils 5.76 1.4-6.5 K/uL Lymphocytes # (Manual) 0.14 1.2-3.4 K/uL Total Absolute Lymphocytes 0.14 1.2-3.4 K/uL Monocytes # (Manual) 0.14 0.11-0.59 K/uL Metamyelocytes # 1.21 0-0 K/uL Myelocytes # 0.92 0-0 K/uL Polychromasia 1+ Hypochromasia PRESENT Basophilic Stippling 1+ Stomatocytes 2+ Erythrocyte Sedimentation Rate 17 0-21 mm/hr Prothrombin Time 22.8 9.0-12.0 SECONDS Prothromb Time International Ratio 2.1 0.9-1.1 Activated Partial Thromboplast Time 34.5 21.0-31.0 SECONDS Partial Thromboplastin Ratio 1.3 Sodium Level 144 136-145 mmol/L Potassium Level 3.2 3.5-5.1 mmol/L Chloride Level 92 98-107 mmol/L Carbon Dioxide Level 54 21-32 mmol/L Anion Gap -2.0 3-11 mmol/L Blood Urea Nitrogen 30 7-18 mg/dl Creatinine 0.76 0.60-1.20 mg/dl Estimated GFR () 97.4 Estimated GFR (Non- 84.1 BUN/Creatinine Ratio 39.5 10-20 Random Glucose 124 70-99 mg/dl Calcium Level 7.9 8.5-10.1 mg/dl Phosphorus Level 2.2 2.5-4.9 mg/dl Magnesium Level 1.8 1.8-2.4 mg/dl Total Bilirubin 1.1 0.2-1 mg/dl Aspartate Amino Transf (AST/SGOT) 44 15-37 U/L Alanine Aminotransferase (ALT/SGPT) 86 12-78 U/L Alkaline Phosphatase 171 45-117 U/L Total Creatine Kinase 20 26-192 U/L Creatine Kinase MB 0.5 0.5-3.6 ng/ml Creatine Kinase MB Ratio 2.5 0-3.0 Troponin I 0.036 0-0.045 ng/ml C-Reactive Protein 12.70 0-0.29 mg/dl Pro-B-Type Natriuretic Peptide 851 0-900 pg/ml Total Protein 5.2 6.4-8.2 gm/dl Albumin 2.6 3.4-5.0 gm/dl Globulin 2.6 2.5-4.0 gm/dl Albumin/Globulin Ratio 1.0 0.9-2 Lipase 88 73-393 U/L Bedside Lactic Acid Venous 1.83 0.90-1.70 mmol/L Venous Blood pH 7.35 7.36-7.41 Venous Blood Partial Pressure CO2 96 38.0-50.0 mmHg Venous Blood Partial Pressure O2 78 mmHg Venous Blood HCO3 52 mmol/L Venous Blood Oxygen Saturation 93.3 % Venous Blood Base Excess 23.0 mmol/L Urine Color ORANGE Urine Appearance CLEAR CLEAR Urine pH 6.0 4.5-7.5 Urine Specific [place] 1.025 1.000-1.030 Urine Protein 1+ NEG Urine Glucose (UA) NEG NEG Urine Ketones NEG NEG Urine Occult Blood NEG NEG Urine Nitrite POS NEG Urine Bilirubin NEG NEG Urine Urobilinogen NEG NEG Urine Leukocyte Esterase TRACE NEG Urine WBC (Auto) 1-5 0-5 /hpf Urine RBC (Auto) 0-4 0-4 /hpf Urine Hyaline Casts (Auto) 10-30 0-5 /lpf Urine Epithelial Cells (Auto) >30 0-5 /lpf Urine Bacteria (Auto) 1+ NEG Urine Renal Epithelial Cells 0-5 0-5 /lpf Urine Opiates Screen POS NEG Urine Methadone, Qualitative NEG NEG Urine Barbiturates NEG NEG Urine Phencyclidine (PCP) Level NEG NEG Ur Amphetamine/Methamphetamine NEG NEG MDMA (Ecstasy) Screen NEG NEG Urine Benzodiazepines Screen POS NEG Urine Cocaine Metabolite NEG NEG Urine Marijuana (THC) NEG NEG Test 04/22/16 23:08 04/23/16 00:07 04/23/16 01:02 04/23/16 01:30 Range/Units Bedside Glucose 101 114 110 70-90 mg/dl Sodium Level 143 136-145 mmol/L Potassium Level 3.6 3.5-5.1 mmol/L Chloride Level 90 98-107 mmol/L Carbon Dioxide Level 50 21-32 mmol/L Anion Gap 3.0 3-11 mmol/L Blood Urea Nitrogen 29 7-18 mg/dl Creatinine 0.69 0.60-1.20 mg/dl Est Creatinine Clear Calc Drug Dose 113.7 ml/min Estimated GFR () 108.1 Estimated GFR (Non- 93.3 BUN/Creatinine Ratio 42.3 10-20 Random Glucose 121 70-99 mg/dl Calcium Level 7.9 8.5-10.1 mg/dl Phosphorus Level 2.0 2.5-4.9 mg/dl Test 04/23/16 02:02 04/23/16 03:04 04/23/16 04:21 04/23/16 05:07 Range/Units Bedside Glucose 130 114 124 133 70-90 mg/dl Test 04/23/16 06:10 04/23/16 06:11 Range/Units White Blood Count 13.84 4.8-10.8 K/uL Red Blood Count 3.01 4.2-5.4 M/uL Hemoglobin 8.0 12.0-16.0 g/dL Hematocrit 30.2 37-47 % Mean Corpuscular Volume 100.3 80-100 fL Mean Corpuscular Hemoglobin 26.6 25-34 pg Mean Corpuscular Hemoglobin Concent 26.5 32-36 g/dl Platelet Count 164 130-400 K/uL Mean Platelet Volume 9.1 7.4-10.4 fL Neutrophils (%) (Auto) 95.4 % Lymphocytes (%) (Auto) 0.7 % Monocytes (%) (Auto) 1.8 % Eosinophils (%) (Auto) 0.1 % Basophils (%) (Auto) 0.1 % Neutrophils # (Auto) 13.20 1.4-6.5 K/uL Lymphocytes # (Auto) 0.10 1.2-3.4 K/uL Monocytes # (Auto) 0.25 0.11-0.59 K/uL Eosinophils # (Auto) 0.01 0-0.5 K/uL Basophils # (Auto) 0.02 0-0.2 K/uL RDW Standard Deviation 77.2 36.4-46.3 fL RDW Coefficient of Variation 21.3 11.5-14.5 % Immature Granulocyte % (Auto) 1.9 % Immature Granulocyte # (Auto) 0.26 0.00-0.02 K/uL Nucleated RBC Absolute Count (auto) 0.09 0-0 K/uL Nucleated Red Blood Cells % 0.7 % Toxic Granulation 1+ Dohle Bodies 1+ Polychromasia 2+ Hypochromasia PRESENT Anisocytosis PRESENT Prothrombin Time 22.2 9.0-12.0 SECONDS Prothromb Time International Ratio 2.0 0.9-1.1 Sodium Level 143 136-145 mmol/L Potassium Level 4.2 3.5-5.1 mmol/L Chloride Level 92 98-107 mmol/L Carbon Dioxide Level 50 21-32 mmol/L Anion Gap 1.0 3-11 mmol/L Blood Urea Nitrogen 27 7-18 mg/dl Creatinine 0.70 0.60-1.20 mg/dl Est Creatinine Clear Calc Drug Dose 111.9 ml/min Estimated GFR () 107.6 Estimated GFR (Non- 92.9 BUN/Creatinine Ratio 38.9 10-20 Random Glucose 139 70-99 mg/dl Calcium Level 8.0 8.5-10.1 mg/dl Phosphorus Level 2.9 2.5-4.9 mg/dl Magnesium Level 1.6 1.8-2.4 mg/dl Bedside Glucose 135 70-90 mg/dl Microbiology Results 04/22/16 Blood Culture, Received Pending 04/22/16 Blood Culture, Received Pending Diagnostic Radiology cxr 1. Satisfactory support line placement. No pneumothorax. 2. Pulmonary edema, basilar densities and small bilateral pleural effusions persist. EKG HR 99, a fib Impression Assessment and Plan 60 year old female with history of Chronic Respiratory Failure, COPD, Obstructive Sleep Apnea, Obesity Hypoventilation Syndrome, CHF Diastolic Type, presenting with progressive shortness of breath x few days. ACUTE ON CHRONIC RESPIRATORY FAILURE likely from Acute Diastolic CHF Exacerbation, COPD Exacerbation, possible Pneumonia - Lasix Solumedrol Nebs empiric Vanco, Zosyn, Levaquin HYPOTENSION likely from Propofol continue Phenylpehrine, wean accordingly HYPOGLYCEMIA may need to adjust Insulin regimen ISS for now Pharmacy consulted CHRONIC A FIB continue Amio, Diltiazem, Metoprolol, Coumadin DVT prophylaxis on coumadin Code Status Full Code Disposition pending presently residing in SNF Advanced Directives Existing Advance Directive: No Existing Living Will: No Existing Power of Ceramic Plater: No VTE Prophylaxis VTE Risk Assessment Done? Y/N: Yes Risk Level: Moderate
[2016-04-23] MEDS: METHYLPREDNISOLONE IV 60 MG in SYRINGE 0 ML IV SCH ×2 (09:41→16:50)
[2016-04-23] MEDS: MAGNESIUM SULFATE 1GM / D5W 1 GM in PREMIXED IN D5W 100 ML IV SCH ×2 (09:41→10:30)
[2016-04-23] MEDS: PANTOprazole INJ 40 MG in SYRINGE 0 ML IV SCH (09:41)
[2016-04-23] MEDS: CALCITONIN SALMON NA 200 IU/AC 3.7 ML BTL SCH (09:42)
[2016-04-23] MEDS: CALCIUM 600MG + VIT D 400 IU TAB PO SCH ×2 (09:43→20:03)
[2016-04-23] MEDS: SUCRALFATE 1 GM/10 ML UDC PO SCH ×4 (09:43→19:59)
[2016-04-23] MEDS: POTASSIUM CHLORIDE 20 MEQ TABCR PO SCH ×2 (09:44→20:01)
[2016-04-23] MEDS: LACTOBACILLUS ACIDOPHILUS (FLORANEX) TAB PO SCH ×2 (09:44→20:02)
[2016-04-23] MEDS: MAGNESIUM OXIDE 400 MG TAB PO SCH ×2 (09:45→20:03)
[2016-04-23] MEDS: AMIODARONE 200 MG TAB PO SCH ×3 (09:45→20:00)
[2016-04-23] MEDS: CHLORHEXIDINE GLUCONATE 0.12% 480 ML MT SCH ×2 (10:00→19:59)
[2016-04-23 10:04] LABS: ISTAT ALLEN TEST Pass; ISTAT ARTERIAL BLOOD GAS HCO3 50 meq/L (19-24); ISTAT ARTERIAL BLOOD GAS PCO2 79 mmHg (35-46); ISTAT ARTERIAL BLOOD GAS PO2 81 mmHg (80-95); ISTAT ARTERIAL BLOOD GAS pH 7.42 (7.35-7.45); ISTAT CARBON DIOXIDE < 5 mEq/l (24-31); ISTAT DELIVERY SYSTEM Ventilator; ISTAT FIO2 40 %; ISTAT PEEP 5; ISTAT RATE 20; ISTAT SITE L Radial; VE 9.4; Vt 500
--- NOTE | 2016-04-23 11:26 | DIAGNOSTIC IMAGING REPORT ---
KUB CLINICAL HISTORY: Enteric tube placement. FINDINGS: 2 AP, portable, supine abdominal radiographs are obtained. No prior studies are available for comparison at the time of dictation. An enteric tube has been placed. The tip of the catheter projects below the diaphragm over the mid stomach. There is a nonobstructed abdominal bowel gas pattern. Mild colonic fecal retention is observed. No evidence of intraperitoneal free air is seen on these supine images. No abnormal abdominal calcifications are identified. The skeletal structures are osteopenic. Lumbosacral spondylosis is noted. IMPRESSION: 1. An enteric tube projects below the diaphragm over the mid stomach. 2. Nonobstructed abdominal bowel gas pattern. Electronically signed by: Cyril Solorzano M.D. 04/23/2016 11:24 AM
--- NOTE | 2016-04-23 12:44 | CRITICAL CARE CONSULTATION ---
DATE OF CONSULTATION: 04/23/2016 CHIEF COMPLAINT: Altered mental status. HISTORY OF PRESENT ILLNESS: Lela is a 60-year-old and woman with a history of severe chronic pulmonary disease with multiple admissions to the hospital over the past year. She was discharged on April 16 to [facility] after admission for acute on chronic hypercapnic respiratory failure. She was reportedly short of breath for several days at [facility] and was found with an altered mental status yesterday. Her blood sugar was in the 30s and she was taken to the Emergency Department. She was initially on 6 liters of oxygen and was increased to 15 liters by face mask. She was intubated due to inability to protect her airway. Post-intubation, she became hypotensive and was started on a Rosalino-Synephrine infusion. She was given fentanyl as well as Lasix 40 mg x1. She was also given Levaquin and 125 mg of Solu-Medrol. She now is in the intensive care unit awake, alert and off the Rosalino-Synephrine infusion. She denies pain but feels like she is short of breath on assist control. PAST MEDICAL HISTORY: Acute on chronic respiratory failure, atrial fibrillation, AV jones reentrant tachycardia, severe chronic obstructive pulmonary disease, diabetes mellitus, diastolic heart failure, gastroesophageal reflux disease, GI bleed, hypertension, osteoporosis, obstructive sleep apnea, squamous cell carcinoma of the bronchus of the left upper lobe. PAST SURGICAL HISTORY: Status post tonsillectomy and adenoidectomy, cholecystectomy, bilateral tubal ligation and navigational bronchoscopy. ALLERGIES: POLLEN. OUTPATIENT MEDICATIONS: Fosamax, amiodarone, Brovana, Lipitor, Pulmicort, Miacalcin, calcium carbonate, citalopram, diltiazem, Colace, ferrous sulfate, Lasix, gabapentin, NovoLog insulin, insulin sliding scale, Lantus, DuoNeb, Floranex, magnesium, Lopressor, montelukast, Nystatin, oxygen, Protonix, MiraLax, potassium, prednisone, senna, Januvia, sucralfate, Incruse Ellipta, warfarin, and Xopenex. SOCIAL HISTORY: She is a former smoker and does not drink any alcohol. She has a and a daughter. FAMILY HISTORY: Noncontributory. REVIEW OF SYSTEMS: Not obtainable as she is on the ventilator. PHYSICAL EXAMINATION: GENERAL: This is an obese, chronically ill appearing woman, awake and writing notes. She appears anxious. VITAL SIGNS: Maximum temperature 38.3, heart rate 95, respiratory rate 21, blood pressure 107/57; oxygen saturation 94%, ventilator settings assist control, rate 20, tidal volume 500, FIO2 40%, and PEEP 5. HEENT: Pupils are equally round and reactive to light. She has nagy facies. Oral examination is deferred due to the endotracheal tube and orogastric tube being in place. LUNGS: Have some mild scattered bilateral expiratory wheezes, no rhonchi or rales. HEART: Sounds are distant. No murmur. ABDOMEN: Obese, mildly tender diffusely. No rebound or guarding. Active bowel sounds. EXTREMITIES: Showed 3-4+ edema of the legs from the knees distally. She also has erythema of both legs in the same area. NEUROLOGIC: Her CAM assessment is negative. She moves all 4 extremities. LABORATORY DATA: White blood cell count 13.8, hemoglobin 8, hematocrit 30.2, platelets 164. pH 7.42, pCO2 79, pO2 81 and HCO3 50. Sodium 143, potassium 4.2, chloride 92, CO2 50, BUN 27, creatinine 0.7, blood sugar 139. Calcium 8, phosphorus 1.6. Urine with positive nitrite, trace leukocyte esterase, 1-5 white blood cells. Urine tox screen positive for opiates and benzodiazepines. IMAGING DATA: Portable chest x-ray from today was reviewed and shows pulmonary edema unchanged from yesterday, bibasilar infiltrates and small pleural effusions bilaterally. CT of the brain shows no acute abnormality and bilateral mastoid effusions. EKG from yesterday shows atrial fibrillation with nonspecific ST-T wave changes. IMPRESSION: 1. Altered mental status likely secondary to hypoglycemia and hypercapnic respiratory failure. 2. Acute on chronic hypercapnic respiratory failure. 3. Severe chronic obstructive pulmonary disease with exacerbation. 4. History of acute on chronic diastolic dysfunction. 5. Hypoglycemia, resolved. 6. Atrial fibrillation. 7. History of gastrointestinal bleed, her last admission, no procedures were performed. Her Coumadin was stopped and has since been resumed. 8. Obstructive sleep apnea and obesity hypoventilation syndrome. 9. Left upper lobe squamous cell carcinoma. 10. History of hypertension. 11. Hypotension, status post intubation secondary to sedating medications. PLAN: NEUROLOGIC: Continue fentanyl infusion. She is completely awake on 100 mcg per hour. Avoid benzodiazepines and try to avoid ICU psychosis. PULMONARY: Maintain on the ventilator today. I plan to give her some acetazolamide to try to improve her serum CO2. Continue bronchodilators as well as inhaled and intravenous steroids along with her Singulair. CARDIOVASCULAR: Now that she is no longer hypotensive, we can potentially add back her rate-controlling medications for her atrial fibrillation. Continue Coumadin. ENDOCRINE: Glycemic consult. GASTROINTESTINAL: Hold on tube feeds for today. Continue Floranex. Protonix for GI prophylaxis. INFECTIOUS DISEASE: She is on Levaquin and Zosyn. Follow cultures. I am not necessarily convinced she is infected. She is also on vancomycin. Renal diuresis with acetazolamide. I discussed her care with her family and my concern regarding how challenging it will be to liberate her from the ventilator. Questions were answered and support was provided. Critical care time 40 minutes.
--- NOTE | 2016-04-23 13:38 | Pharmacy Progress Note ---
Glycemic Control Intl Consult Date of Service Apr 23, 2016. Scope Glycemic Pharmacist consulted by Dr Mahajan on 04/23 for glycemic control and to write orders per [facility] inpatient glycemic control protocol Objective Weight (Kilograms): 134.100 Accuchecks BSG (last 24hrs): Test 04/22/16 18:15 04/22/16 23:08 04/23/16 00:07 04/23/16 01:02 Random Glucose 124 mg/dl (70-99) Bedside Glucose 101 mg/dl (70-90) 114 mg/dl (70-90) 110 mg/dl (70-90) Test 04/23/16 01:30 04/23/16 02:02 04/23/16 03:04 04/23/16 04:21 Random Glucose 121 mg/dl (70-99) Bedside Glucose 130 mg/dl (70-90) 114 mg/dl (70-90) 124 mg/dl (70-90) Test 04/23/16 05:07 04/23/16 06:10 04/23/16 06:11 04/23/16 11:43 Bedside Glucose 133 mg/dl (70-90) 135 mg/dl (70-90) 215 mg/dl (70-90) Random Glucose 139 mg/dl (70-99) Laboratory Data (last 24hrs) Test 04/22/16 18:15 04/23/16 01:30 04/23/16 06:10 Anion Gap -2.0 mmol/L 3.0 mmol/L 1.0 mmol/L BUN/Creatinine Ratio 39.5 42.3 38.9 Blood Urea Nitrogen 30 mg/dl 29 mg/dl 27 mg/dl Creatinine 0.76 mg/dl 0.69 mg/dl 0.70 mg/dl Potassium Level 3.2 mmol/L 3.6 mmol/L 4.2 mmol/L Sodium Level 144 mmol/L 143 mmol/L 143 mmol/L White Blood Count 8.17 K/uL 13.84 K/uL Red Blood Count 3.16 M/uL 3.01 M/uL Hemoglobin 8.5 g/dL 8.0 g/dL Hematocrit 32.3 % 30.2 % Mean Corpuscular Volume 102.2 fL 100.3 fL Mean Corpuscular Hemoglobin 26.9 pg 26.6 pg Mean Corpuscular Hemoglobin Concent 26.3 g/dl 26.5 g/dl Platelet Count 181 K/uL 164 K/uL Mean Platelet Volume 9.1 fL 9.1 fL Neutrophils (%) (Auto) 95.4 % Lymphocytes (%) (Auto) 0.7 % Monocytes (%) (Auto) 1.8 % Eosinophils (%) (Auto) 0.1 % Basophils (%) (Auto) 0.1 % Neutrophils # (Auto) 13.20 K/uL Lymphocytes # (Auto) 0.10 K/uL Monocytes # (Auto) 0.25 K/uL Eosinophils # (Auto) 0.01 K/uL Basophils # (Auto) 0.02 K/uL Recent Pertinent Medications Outpatient Anti-diabetic Regimen: * Lantus 30 units SC BID * Novolog SC ACHS: 22, 18, 22, 10 units respectively, plus additional sliding scale * Januvia 50 mg po qAM * A1c = 5.8 % 04/10/16 The patient is currently receiving: * Basal insulin: None (last Lantus 04/22 AM per med rec) * Correctional Insulin: Novolog Correction per scale ACHS Goal Range: Low 110 mg/dL - High 140 mg/dL Correction Factor: 10 mg/dL/unit * Prandial insulin: None * Oral Agents: On hold Risk Factors for Insulin Resistance: * Steroids: Pred taper ABAP DEVELOPER (was on 40 mg daily). Now methylprednisolone 125 mg IV x1 then 60 mg IV q8h * Infection: ?PNA - on Zosyn, levofloxacin, vancomycin * Pressors: Phenylephrine * Diet: NPO * Mechanical Ventilation: YES Assessment & Plan ASSESSMENT: * ADA & AACE recommend a goal blood sugar range 140-180 mg/dl for the majority of critically ill & non-critically ill patients. However, more stringent targets may be selected in individual cases. * 60 yo F with T2DM well-known to our service admitted to ICU for respiratory failure * Patient at risk for hypoglycemia 2nd the following: * NPO status * Low HbA1c of 5.8% * Recent hypoglycemia to 30 mg/dL * Patient also at risk for hyperglycemia 2nd significant stressors * Critically ill in ICU * On IV steroids * Mechanically vented * Pressors * In previous admissions, patient has been on Lantus ~30-50 units SC BID. This is while pt is on steroids and ordered a diet. Will start with 30 units x1 this AM (as pt did not receive PM Lantus 04/22 2nd hypoglycemia), but then decrease to 24 units BID for NPO status / risk for hypoglycemia * To prevent hyperglycemia (while on less aggressive Lantus with significant stressors as above) will change Novolog to q4h checks for now. * Goal range tighter than usual for ICU patient as pt is only receiving Novolog as correction factor 2nd NPO status PLAN FOR INPATIENT GLYCEMIC CONTROL: * Recommend low threshold to transition to insulin gtt - this is the preferred regimen for critically ill patients in ICU with labile BSG's * Holding outpatient oral diabetes medications * Add Basal insulin with LANTUS 30 units SQ x1 then 24 units SC BID - 1/2 dose for BSG < 100 mg/dL * Correctional Insulin with NOVOLOG *Q4H* * Goal Range: Low 120 mg/dL - High 160 mg/dL * Correction Factor: 10 mg/dL/unit * Add Nutritional / Prandial insulin per carb ratio of 1 unit per 4 grams CHO consumed (for when pt ordered diet) * Please note that the plan above was derived based on current level of insulin resistance and hospital stress. These recommendations are appropriate for inpatient admission only. Plan of care upon discharge will need to be reassessed to avoid potential outpatient hypo/hyperglycemia. Thank you.
--- NOTE | 2016-04-23 13:59 | Pharmacy Progress Note ---
Pharmacy Antibiotic Consult Date of Service: Apr 23, 2016. Pharmacy Dosing Scope Pharmacy is consulted to initiate vancomycin IV dosing therapy, order appropriate labs and adjust drug dose/frequency. Subjective The patient is a 60 year old female admitted on Apr 22, 2016 at 22:06. Objective Height (Feet): 5 Height (Inches): 3.00 Weight (Kilograms): 134.100 Lab Results (24hrs): Laboratory Tests Test 04/22/16 18:15 04/23/16 01:30 04/23/16 06:10 BUN/Creatinine Ratio 39.5 42.3 38.9 Blood Urea Nitrogen 30 mg/dl 29 mg/dl 27 mg/dl Creatinine 0.76 mg/dl 0.69 mg/dl 0.70 mg/dl White Blood Count 8.17 K/uL 13.84 K/uL Red Blood Count 3.16 M/uL 3.01 M/uL Hemoglobin 8.5 g/dL 8.0 g/dL Hematocrit 32.3 % 30.2 % Mean Corpuscular Volume 102.2 fL 100.3 fL Mean Corpuscular Hemoglobin 26.9 pg 26.6 pg Mean Corpuscular Hemoglobin Concent 26.3 g/dl 26.5 g/dl Platelet Count 181 K/uL 164 K/uL Mean Platelet Volume 9.1 fL 9.1 fL Neutrophils (%) (Auto) 95.4 % Lymphocytes (%) (Auto) 0.7 % Monocytes (%) (Auto) 1.8 % Eosinophils (%) (Auto) 0.1 % Basophils (%) (Auto) 0.1 % Neutrophils # (Auto) 13.20 K/uL Lymphocytes # (Auto) 0.10 K/uL Monocytes # (Auto) 0.25 K/uL Eosinophils # (Auto) 0.01 K/uL Basophils # (Auto) 0.02 K/uL Assessment & Plan Assessment * 60 yo F admitted to ICU with respiratory failure. On Zosyn, levofloxacin, vancomycin for sepsis 2nd ?PNA vs COPD exacerbation. * Goal vancomycin trough 15-20 mcg/mL * Vancomycin 21 mg/kg (max dose of 2800 mg) given overnight. * Will continue vancomycin at 15 mg/kg IV q12h. Of note, while this may achieve therapeutic levels initially, pt is at risk for accumulation 2nd BMI and therefore dose may need to be decreased even if levels are therapeutic. * Trough prior to 4th overall dose Plan * Vancomycin 2000 mg IV q12h * Trough 04/24 @ 1330 Pharmacy will continue to follow and will adjust dose/frequency as necessary. Thank you
[2016-04-23] MEDS: VANCOMYCIN INJ 2,000 MG in SODIUM CHLORIDE 0.9% 500ML 500 ML IV SCH (14:09)
--- NOTE | 2016-04-23 14:16 | Progress Note ---
Internal Med Progress Note Date of Service: Apr 23, 2016. Provider Documentation: SUBJECTIVE: remains intubated on vent remains on AC mode BP stabilized. off pressors opens eyes to voice , signs to take the tube out OBJECTIVE: Vital Signs-as noted below Exam: General Appearance: morbidly obese intubated, awake , able to follow command Head: normocephalic, atraumatic Eyes: normal inspection, PERRL, EOMI, sclerae normal ENT: hearing grossly normal, + ET tube in place Neck: no adenopathy, thyroid normal, Respiratory/Chest: + pertinent finding ((+) bilateral crackles, wheezing) Cardiovascular: + irregularly irregular, + pertinent finding (mild lower leg edema, wrapped with dressing) Abdomen/GI: normal bowel sounds, non tender, soft Extremities/Musculoskeletal: + pertinent finding (mild lower leg edema, wrapped with dressing) Neurologic/Psych: + pertinent finding (pupils equal round reactive to light, moves all extremities equally, able to follow commands Lab data as noted below. ASSESSMENT & PLAN: 60 year old female with history of Chronic Respiratory Failure-recurrent admission for the same COPD, Obstructive Sleep Apnea, Obesity Hypoventilation Syndrome, CHF Diastolic Type, presenting with progressive shortness of breath x few days. pt was recently discharged on 04/16/16 -brought to ED with lethargy , changed mental status , hypoxia needed to be intubated in ED as pt was developing progressive respiratory distress , unable to protect airway ACUTE ON CHRONIC RESPIRATORY FAILURE multifactorial likely from Acute Diastolic CHF Exacerbation, COPD Exacerbation, possible Pneumonia-HCAP pt has chronic Hypercarbia due to obesity hypoventilation syndrome has not been complaint with Bipap in past intubated for respiratory failure appreciate input form Critical care given IV Lasix for pulmonary congestion with adequate diuresis on empiric Abx with Zosyn , Vanco ,Levaquin for HCAP -recently discharged form [facility] /sent form [facility] ICU monitoring will defer to Critical care for weaning trial HYPOTENSION likely from Propofol/respiratory failure BP improved , weaned off from Phenylpehrine, HYPOGLYCEMIA presented with BSG in 30's due to infection ? Pharmacy consulted for glycemic control appreciate input CHANGED MENTAL STATUS /LETHARGY : due to hypercarbia, CO2 retention , respiratory failure /hypoglycemia mental status gradually improved to baseline opening eyes , able to communicate with nodding , via writing CHRONIC A FIB continue Amio, Diltiazem, Metoprolol, Coumadin INR therapeutic ANEMIA OF CHRONIC DISEASE : hx of GI bleed was found not to be a suitable candidate for EGD for severe respiratory failure requires intermittent PRBC transfusion hb at baseline ~8 follow H&H given underlying cardiac hx pt requires PRBC tx for Hb < 8 DVT prophylaxis on Coumadin INR therapeutic Code Status Full Code Disposition remains critically ill in ICU was in [facility] prior to admission depending on pt's progression will need SNF vs LTAC placement Vital Signs: Date Time Temp Pulse Resp B/P Pulse Ox O2 Delivery O2 Flow Rate FiO2 04/23/16 16:00 94 Mechanical Ventilator 40 04/23/16 16:00 37.6 112 22 118/72 95 Mechanical Ventilator 40 04/23/16 16:00 40 04/23/16 16:00 97 Mechanical Ventilator 04/23/16 14:28 96 21 112/61 95 04/23/16 14:02 106 22 113/54 96 04/23/16 14:00 110 25 62/25 89 04/23/16 13:30 103 23 96 04/23/16 13:00 98 20 04/23/16 12:59 89 19 102/64 91 04/23/16 12:30 101 24 92 04/23/16 12:00 94 Mechanical Ventilator 40 04/23/16 12:00 37.6 112 22 118/59 95 Mechanical Ventilator 40 04/23/16 12:00 40 04/23/16 11:43 130 22 115/75 85 04/23/16 11:30 102 27 94 04/23/16 11:23 40 04/23/16 11:00 111 24 96 04/23/16 10:59 108 26 110/68 95 04/23/16 10:30 101 18 96 04/23/16 10:29 94 27 106/58 97 04/23/16 10:00 114 23 94 04/23/16 09:59 103 21 112/63 93 04/23/16 09:30 111 23 96 04/23/16 09:29 112 23 110/54 95 04/23/16 09:00 117 21 95 04/23/16 08:21 40 04/23/16 08:00 38.2 95 21 107/57 94 Mechanical Ventilator 40 04/23/16 08:00 94 Mechanical Ventilator 40 04/23/16 08:00 40 04/23/16 08:00 94 Mechanical Ventilator 04/23/16 06:00 38.3 109 25 109/63 93 Mechanical Ventilator 40 04/23/16 05:22 40 04/23/16 04:00 40 04/23/16 04:00 96 Mechanical Ventilator 40 04/23/16 04:00 38.1 95 20 94/55 96 Mechanical Ventilator 40 04/23/16 02:53 40 04/23/16 02:00 37.8 95 21 95/61 95 Mechanical Ventilator 40 04/23/16 00:36 40 04/23/16 00:01 93 Mechanical Ventilator 04/23/16 00:01 93 Mechanical Ventilator 40 04/23/16 00:01 40 04/23/16 00:01 37.6 98 23 100/45 93 Mechanical Ventilator 40 04/22/16 23:20 37.6 103 29 90/67 90 Mechanical Ventilator 40 04/22/16 22:29 113/54 04/22/16 22:24 114/56 04/22/16 22:19 84 20 94/61 95 04/22/16 22:17 84 04/22/16 22:14 108/54 98 Mechanical Ventilator 40 04/22/16 22:09 94/56 04/22/16 22:05 84/49 04/22/16 22:00 93 20 85 Mechanical Ventilator 30 04/22/16 21:59 97/47 04/22/16 21:54 95/47 04/22/16 21:49 93/47 04/22/16 21:48 40 04/22/16 21:44 95/50 04/22/16 21:39 95/49 04/22/16 21:34 97/51 04/22/16 21:30 91 28 98 Mechanical Ventilator 04/22/16 21:29 94/59 04/22/16 21:24 112/47 04/22/16 21:19 103/61 04/22/16 21:14 107/49 04/22/16 21:09 102/49 04/22/16 21:04 108/56 04/22/16 21:00 97 23 95 Mechanical Ventilator 04/22/16 20:59 108/50 04/22/16 20:54 103/66 04/22/16 20:49 94/66 04/22/16 20:44 104/54 04/22/16 20:39 108/56 04/22/16 20:34 104/50 04/22/16 20:30 87 21 98 Mechanical Ventilator 04/22/16 20:25 107/51 04/22/16 20:23 89/55 04/22/16 20:21 90/55 04/22/16 20:19 100/54 04/22/16 20:17 102/52 04/22/16 20:15 99/62 04/22/16 20:13 90/56 04/22/16 20:11 80/45 04/22/16 20:10 95 22 90 Mechanical Ventilator 40 04/22/16 20:09 92/47 04/22/16 20:07 83/43 04/22/16 20:05 86/47 04/22/16 20:03 83/46 04/22/16 20:01 89/72 04/22/16 19:59 80/51 04/22/16 19:57 88/46 04/22/16 19:55 69/42 04/22/16 19:53 86/47 04/22/16 19:51 78/45 04/22/16 19:50 101 24 98 Mechanical Ventilator 04/22/16 19:49 82/42 04/22/16 19:47 81/46 04/22/16 19:45 90/41 04/22/16 19:43 76/50 04/22/16 19:41 90/42 04/22/16 19:39 72/46 04/22/16 19:37 74/49 04/22/16 19:35 81/44 04/22/16 19:33 76/48 04/22/16 19:31 76/45 04/22/16 19:30 100 26 98 Mechanical Ventilator 04/22/16 19:13 98 77/42 04/22/16 19:11 74/45 04/22/16 19:10 94 20 96 Mechanical Ventilator 04/22/16 19:09 76/47 04/22/16 19:07 69/40 04/22/16 19:05 103 23 77/39 89 Mechanical Ventilator 04/22/16 19:03 80/39 04/22/16 19:01 81/42 04/22/16 19:00 104 22 90 04/22/16 19:00 106 30 83/43 90 Mechanical Ventilator 04/22/16 18:56 102 24 84/43 91 Mechanical Ventilator 04/22/16 18:54 102 22 75/43 92 Mechanical Ventilator 04/22/16 18:53 30 04/22/16 18:48 106 24 85/52 92 Mechanical Ventilator 04/22/16 18:48 91 Mechanical Ventilator 04/22/16 18:28 110 24 130/59 99 Non-Rebreather 15.0 04/22/16 18:17 103 04/22/16 18:05 106 24 141/65 100 Non-Rebreather Lab Results: Results Past 24 Hours Test 04/22/16 18:15 04/22/16 18:22 04/22/16 18:30 04/22/16 21:04 Range/Units White Blood Count 8.17 4.8-10.8 K/uL Red Blood Count 3.16 4.2-5.4 M/uL Hemoglobin 8.5 12.0-16.0 g/dL Hematocrit 32.3 37-47 % Mean Corpuscular Volume 102.2 80-100 fL Mean Corpuscular Hemoglobin 26.9 25-34 pg Mean Corpuscular Hemoglobin Concent 26.3 32-36 g/dl Platelet Count 181 130-400 K/uL Mean Platelet Volume 9.1 7.4-10.4 fL RDW Standard Deviation 76.7 36.4-46.3 fL RDW Coefficient of Variation 20.5 11.5-14.5 % Nucleated RBC Absolute Count (auto) 0.24 0-0 K/uL Neutrophils % (Manual) 70.5 % Lymphocytes % (Manual) 1.7 % Monocytes % (Manual) 1.7 % Metamyelocytes % 14.8 % Myelocytes % 11.3 % Nucleated Red Blood Cells % 2.9 % Neutrophils # (Manual) 5.76 1.4-6.5 K/uL Total Absolute Neutrophils 5.76 1.4-6.5 K/uL Lymphocytes # (Manual) 0.14 1.2-3.4 K/uL Total Absolute Lymphocytes 0.14 1.2-3.4 K/uL Monocytes # (Manual) 0.14 0.11-0.59 K/uL Metamyelocytes # 1.21 0-0 K/uL Myelocytes # 0.92 0-0 K/uL Polychromasia 1+ Hypochromasia PRESENT Basophilic Stippling 1+ Stomatocytes 2+ Erythrocyte Sedimentation Rate 17 0-21 mm/hr Prothrombin Time 22.8 9.0-12.0 SECONDS Prothromb Time International Ratio 2.1 0.9-1.1 Activated Partial Thromboplast Time 34.5 21.0-31.0 SECONDS Partial Thromboplastin Ratio 1.3 Sodium Level 144 136-145 mmol/L Potassium Level 3.2 3.5-5.1 mmol/L Chloride Level 92 98-107 mmol/L Carbon Dioxide Level 54 21-32 mmol/L Anion Gap -2.0 3-11 mmol/L Blood Urea Nitrogen 30 7-18 mg/dl Creatinine 0.76 0.60-1.20 mg/dl Estimated GFR () 97.4 Estimated GFR (Non- 84.1 BUN/Creatinine Ratio 39.5 10-20 Random Glucose 124 70-99 mg/dl Calcium Level 7.9 8.5-10.1 mg/dl Phosphorus Level 2.2 2.5-4.9 mg/dl Magnesium Level 1.8 1.8-2.4 mg/dl Total Bilirubin 1.1 0.2-1 mg/dl Aspartate Amino Transf (AST/SGOT) 44 15-37 U/L Alanine Aminotransferase (ALT/SGPT) 86 12-78 U/L Alkaline Phosphatase 171 45-117 U/L Total Creatine Kinase 20 26-192 U/L Creatine Kinase MB 0.5 0.5-3.6 ng/ml Creatine Kinase MB Ratio 2.5 0-3.0 Troponin I 0.036 0-0.045 ng/ml C-Reactive Protein 12.70 0-0.29 mg/dl Pro-B-Type Natriuretic Peptide 851 0-900 pg/ml Total Protein 5.2 6.4-8.2 gm/dl Albumin 2.6 3.4-5.0 gm/dl Globulin 2.6 2.5-4.0 gm/dl Albumin/Globulin Ratio 1.0 0.9-2 Lipase 88 73-393 U/L Bedside Lactic Acid Venous 1.83 0.90-1.70 mmol/L Venous Blood pH 7.35 7.36-7.41 Venous Blood Partial Pressure CO2 96 38.0-50.0 mmHg Venous Blood Partial Pressure O2 78 mmHg Venous Blood HCO3 52 mmol/L Venous Blood Oxygen Saturation 93.3 % Venous Blood Base Excess 23.0 mmol/L Urine Color ORANGE Urine Appearance CLEAR CLEAR Urine pH 6.0 4.5-7.5 Urine Specific [place] 1.025 1.000-1.030 Urine Protein 1+ NEG Urine Glucose (UA) NEG NEG Urine Ketones NEG NEG Urine Occult Blood NEG NEG Urine Nitrite POS NEG Urine Bilirubin NEG NEG Urine Urobilinogen NEG NEG Urine Leukocyte Esterase TRACE NEG Urine WBC (Auto) 1-5 0-5 /hpf Urine RBC (Auto) 0-4 0-4 /hpf Urine Hyaline Casts (Auto) 10-30 0-5 /lpf Urine Epithelial Cells (Auto) >30 0-5 /lpf Urine Bacteria (Auto) 1+ NEG Urine Renal Epithelial Cells 0-5 0-5 /lpf Urine Opiates Screen POS NEG Urine Methadone, Qualitative NEG NEG Urine Barbiturates NEG NEG Urine Phencyclidine (PCP) Level NEG NEG Ur Amphetamine/Methamphetamine NEG NEG MDMA (Ecstasy) Screen NEG NEG Urine Benzodiazepines Screen POS NEG Urine Cocaine Metabolite NEG NEG Urine Marijuana (THC) NEG NEG Test 04/22/16 23:08 04/23/16 00:07 04/23/16 01:02 04/23/16 01:30 Range/Units Bedside Glucose 101 114 110 70-90 mg/dl Sodium Level 143 136-145 mmol/L Potassium Level 3.6 3.5-5.1 mmol/L Chloride Level 90 98-107 mmol/L Carbon Dioxide Level 50 21-32 mmol/L Anion Gap 3.0 3-11 mmol/L Blood Urea Nitrogen 29 7-18 mg/dl Creatinine 0.69 0.60-1.20 mg/dl Est Creatinine Clear Calc Drug Dose 113.7 ml/min Estimated GFR () 108.1 Estimated GFR (Non- 93.3 BUN/Creatinine Ratio 42.3 10-20 Random Glucose 121 70-99 mg/dl Calcium Level 7.9 8.5-10.1 mg/dl Phosphorus Level 2.0 2.5-4.9 mg/dl Test 04/23/16 02:02 04/23/16 03:04 04/23/16 04:21 04/23/16 05:07 Range/Units Bedside Glucose 130 114 124 133 70-90 mg/dl Test 04/23/16 06:10 04/23/16 06:11 04/23/16 09:52 04/23/16 11:43 Range/Units White Blood Count 13.84 4.8-10.8 K/uL Red Blood Count 3.01 4.2-5.4 M/uL Hemoglobin 8.0 12.0-16.0 g/dL Hematocrit 30.2 37-47 % Mean Corpuscular Volume 100.3 80-100 fL Mean Corpuscular Hemoglobin 26.6 25-34 pg Mean Corpuscular Hemoglobin Concent 26.5 32-36 g/dl Platelet Count 164 130-400 K/uL Mean Platelet Volume 9.1 7.4-10.4 fL Neutrophils (%) (Auto) 95.4 % Lymphocytes (%) (Auto) 0.7 % Monocytes (%) (Auto) 1.8 % Eosinophils (%) (Auto) 0.1 % Basophils (%) (Auto) 0.1 % Neutrophils # (Auto) 13.20 1.4-6.5 K/uL Lymphocytes # (Auto) 0.10 1.2-3.4 K/uL Monocytes # (Auto) 0.25 0.11-0.59 K/uL Eosinophils # (Auto) 0.01 0-0.5 K/uL Basophils # (Auto) 0.02 0-0.2 K/uL RDW Standard Deviation 77.2 36.4-46.3 fL RDW Coefficient of Variation 21.3 11.5-14.5 % Immature Granulocyte % (Auto) 1.9 % Immature Granulocyte # (Auto) 0.26 0.00-0.02 K/uL Nucleated RBC Absolute Count (auto) 0.09 0-0 K/uL Nucleated Red Blood Cells % 0.7 % Toxic Granulation 1+ Dohle Bodies 1+ Polychromasia 2+ Hypochromasia PRESENT Anisocytosis PRESENT Prothrombin Time 22.2 9.0-12.0 SECONDS Prothromb Time International Ratio 2.0 0.9-1.1 Sodium Level 143 136-145 mmol/L Potassium Level 4.2 3.5-5.1 mmol/L Chloride Level 92 98-107 mmol/L Carbon Dioxide Level 50 21-32 mmol/L Anion Gap 1.0 3-11 mmol/L Blood Urea Nitrogen 27 7-18 mg/dl Creatinine 0.70 0.60-1.20 mg/dl Est Creatinine Clear Calc Drug Dose 111.9 ml/min Estimated GFR () 107.6 Estimated GFR (Non- 92.9 BUN/Creatinine Ratio 38.9 10-20 Random Glucose 139 70-99 mg/dl Calcium Level 8.0 8.5-10.1 mg/dl Phosphorus Level 2.9 2.5-4.9 mg/dl Magnesium Level 1.6 1.8-2.4 mg/dl Bedside Glucose 135 215 70-90 mg/dl Blood Gas Sample Site L Radial Bedside Blood Gas pH (LAB) 7.42 7.35-7.45 Bedside Blood Gas pCO2 (LAB) 79 35-46 mmHg Bedside Blood Gas pO2 (LAB) 81 80-95 mmHg Bedside Blood Gas HCO3 (LAB) 50 19-24 meq/L Bedside Blood Gas Total CO2 < 5 24-31 mEq/l Bedside Blood Gas Base Excess (LAB) 26.0 -9-1.8 meq/L Bedside Blood Gas O2 Saturation 94.0 90-95 % Pablo Test Pass Oxygen Delivery Device Ventilator Bedside Oxygen Rate (breaths/min) 20 Blood Gas Minute Ventilation 9.4 Bedside FiO2 40 % Blood Gas Tidal Volume 500 Blood Gas PEEP 5 Test 04/23/16 16:46 Range/Units Bedside Glucose 233 70-90 mg/dl Microbiology Results 04/22/16 Blood Culture, Received Pending 04/22/16 Blood Culture, Received Pending 04/23/16 Urine Culture, Received Pending
[2016-04-23] MEDS ORDERED: ACETAZOLAMIDE IV PUSH 500 MG in SYRINGE 0 ML IV ONE (14:45)
[2016-04-23] MEDS: INCRUSE ELLIPTA~ORDER AWAITING ACTION SCH ×2 (19:41→23:28)
[2016-04-23] MEDS ORDERED: LEVOFLOXACIN 750MG / D5W IV SCH (20:00)
[2016-04-23] MEDS: MONTELUKAST SOD 10 MG TAB PO SCH (20:02)
[2016-04-23] MEDS ORDERED: INSULIN GLARGINE SOLOSTAR 100 UNITS/ML 3 ML PEN SC SCH (21:00)
[2016-04-24] VITALS (41 sets, daily range): BP systolic 91–151; BP diastolic 57–119; PULSE 98–149; TEMP 36.9–37.8; O2SAT 82–100
[2016-04-24] MEDS: INSULIN ASPART 100 UNITS/ML 3 ML PEN SC SCH ×5 (00:01→16:03)
[2016-04-24] MEDS: METHYLPREDNISOLONE IV 60 MG in SYRINGE 0 ML IV SCH ×2 (00:01→07:52)
[2016-04-24] MEDS: VANCOMYCIN INJ 2,000 MG in SODIUM CHLORIDE 0.9% 500ML 500 ML IV SCH ×2 (01:58→13:29)
[2016-04-24] MEDS: PIPERACILL/TAZOBAC IV 4.5 GM in DEXTROSE 5% 100ML IV SCH ×3 (05:44→22:20)
[2016-04-24 06:08] LABS: HEMATOCRIT 30.3 % (37-47); MEAN CELL VOLUME 100.3 fL (80-100); MEAN CORPUSCULAR HEMOGLOBIN 26.2 pg (25-34); MEAN CORPUSCULAR HGB CONC 26.1 g/dl (32-36); MEAN PLATELET VOLUME 9.4 fL (7.4-10.4); PLATELET COUNT 141 K/uL (130-400); RED BLOOD COUNT 3.02 M/uL (4.2-5.4)
[2016-04-24 06:15] LABS: INR 1.7 (0.9-1.1); PROTHROMBIN TIME (PATIENT) 18.7 SECONDS (9.0-12.0)
[2016-04-24 06:46] LABS: ANISOCYTOSIS PRESENT; COMPLETE YES; HYPOCHROMIA PRESENT; IG% 0.8 %; LYMPH % 0.3 %; LYMPH ABS # 0.05 K/uL (1.2-3.4); MONO % 4.1 %; NEUT % 94.8 %; POLYCHROMASIA 1+; STOMATOCYTE 2+
[2016-04-24 06:59] LABS: BUN/CREATININE RATIO 34.1 (10-20); CALCIUM 8.1 mg/dl (8.5-10.1); CREATININE 0.78 mg/dl (0.60-1.20); MAGNESIUM 2.3 mg/dl (1.8-2.4); PHOSPHORUS 2.9 mg/dl (2.5-4.9); POTASSIUM 3.4 mmol/L (3.5-5.1)
[2016-04-24] MEDS: BUDESONIDE 0.5 MG/2 ML VIAL (PULMICORT) INH SCH ×2 (07:52→19:14)
[2016-04-24] MEDS: ARFORMOTEROL TART 15MCG/2ML VIAL INH SCH ×2 (07:52→19:14)
--- NOTE | 2016-04-24 08:43 | DIAGNOSTIC IMAGING REPORT ---
CHEST ONE VIEW PORTABLE HISTORY: respiratory failure, copd, chf COMPARISON: Chest 04/15/2016. FINDINGS: No pneumothorax. The heart remains enlarged. The endotracheal tube terminates approximately 3.5 cm from the estella. Right jugular Port-A-Cath and left jugular central venous catheter terminating over the proximal SVC. The nasogastric tube is difficult to follow and is last seen projecting over the distal mediastinum. This was demonstrated to be within the stomach on the 04/23/2016 KUB. Left upper lobe nodularity and metallic fiducial markers persist. The heart remains enlarged. Mild pulmonary edema and bibasilar densities persist. IMPRESSION: 1. Mild pulmonary edema, cardiomegaly, bibasilar densities persist. 2. Satisfactory support line placement. However, distal nasogastric tube is not well visualized but was located within the stomach on the 04/23/2016 KUB. Electronically signed by: Glen Magana M.D. 04/24/2016 8:41 AM
[2016-04-24] MEDS ORDERED: INSULIN GLARGINE SOLOSTAR 100 UNITS/ML 3 ML PEN SQ ONE ×2 (09:00→10:30)
[2016-04-24] MEDS: LACTOBACILLUS ACIDOPHILUS (FLORANEX) TAB PO SCH ×2 (09:15→20:04)
[2016-04-24] MEDS: CALCITONIN SALMON NA 200 IU/AC 3.7 ML BTL SCH (09:16)
[2016-04-24] MEDS: CALCIUM 600MG + VIT D 400 IU TAB PO SCH ×2 (09:16→20:06)
[2016-04-24] MEDS: SUCRALFATE 1 GM/10 ML UDC PO SCH ×4 (09:16→20:03)
[2016-04-24] MEDS: AMIODARONE 200 MG TAB PO SCH ×3 (09:16→20:08)
[2016-04-24] MEDS: POTASSIUM CHLORIDE 20 MEQ TABCR PO SCH ×2 (09:17→20:05)
[2016-04-24] MEDS: CHLORHEXIDINE GLUCONATE 0.12% 480 ML MT SCH ×2 (09:17→20:06)
[2016-04-24] MEDS: MAGNESIUM OXIDE 400 MG TAB PO SCH ×2 (09:17→20:05)
[2016-04-24] MEDS: PANTOprazole INJ 40 MG in SYRINGE 0 ML IV SCH (09:17)
[2016-04-24] MEDS: NYSTATIN POWDER 15GM BTL EXT SCH ×2 (09:20→20:06)
[2016-04-24] MEDS ORDERED: ACETAZOLAMIDE IV INFUSION 500 MG in DEXTROSE 5% 100ML 100 ML IV ONE (09:45)
[2016-04-24] MEDS ORDERED: POTASSIUM CHLORIDE 20 MEQ/15 ML UDC PO ONE (10:00)
--- NOTE | 2016-04-24 10:47 | Pharmacy Progress Note ---
Glycemic Control: Progress Nt Date of Service Apr 24, 2016. Scope Glycemic Pharmacist consulted by Dr Mahajan on 04/23 for glycemic control and to write orders per [facility] inpatient glycemic control protocol. Objective Accuchecks BSG (last 24hrs): Test 04/23/16 11:43 04/23/16 16:46 04/23/16 19:51 04/23/16 23:51 Bedside Glucose 215 mg/dl (70-90) 233 mg/dl (70-90) 167 mg/dl (70-90) 174 mg/dl (70-90) Test 04/24/16 04:10 04/24/16 05:51 04/24/16 07:44 Bedside Glucose 125 mg/dl (70-90) 125 mg/dl (70-90) Random Glucose 116 mg/dl (70-99) Laboratory Data (last 24hrs) Test 04/24/16 05:51 Anion Gap 4.0 mmol/L BUN/Creatinine Ratio 34.1 Blood Urea Nitrogen 27 mg/dl Creatinine 0.78 mg/dl Potassium Level 3.4 mmol/L Sodium Level 141 mmol/L White Blood Count 14.60 K/uL Red Blood Count 3.02 M/uL Hemoglobin 7.9 g/dL Hematocrit 30.3 % Mean Corpuscular Volume 100.3 fL Mean Corpuscular Hemoglobin 26.2 pg Mean Corpuscular Hemoglobin Concent 26.1 g/dl Platelet Count 141 K/uL Mean Platelet Volume 9.4 fL Neutrophils (%) (Auto) 94.8 % Lymphocytes (%) (Auto) 0.3 % Monocytes (%) (Auto) 4.1 % Eosinophils (%) (Auto) 0.0 % Basophils (%) (Auto) 0.0 % Neutrophils # (Auto) 13.83 K/uL Lymphocytes # (Auto) 0.05 K/uL Monocytes # (Auto) 0.60 K/uL Eosinophils # (Auto) 0.00 K/uL Basophils # (Auto) 0.00 K/uL Recent Pertinent Medications Outpatient Anti-diabetic Regimen: * Lantus 30 units SC BID * Novolog SC ACHS: 22, 18, 22, 10 units respectively, plus additional sliding scale * Januvia 50 mg po qAM * A1c = 5.8 % 04/10/16 The patient is currently receiving: * Basal insulin: Lantus 30 units 04/23 AM, 24 units 04/23 PM * Correctional Insulin: Novolog Correction per scale ACHS Goal Range: Low 120 mg/dL - High 160 mg/dL Correction Factor: 10 mg/dL/unit * Prandial insulin: 1 unit Novolog for every 4 g CHO consumed * Oral Agents: On hold Risk Factors for Insulin Resistance: * Steroids: methylprednisolone 60 mg IV q8h * Infection: ?PNA - on Zosyn, levofloxacin, vancomycin * Pressors: Phenylephrine * Diet: NPO * Mechanical Ventilation: YES Assessment & Plan ASSESSMENT: * ADA & AACE recommend a goal blood sugar range 140-180 mg/dl for the majority of critically ill & non-critically ill patients. However, more stringent targets may be selected in individual cases. 04/23/16 * 60 yo F with T2DM well-known to our service admitted to ICU for respiratory failure * Patient at risk for hypoglycemia 2nd the following: * NPO status * Low HbA1c of 5.8% * Recent hypoglycemia to 30 mg/dL * Patient also at risk for hyperglycemia 2nd significant stressors * Critically ill in ICU * On IV steroids * Mechanically vented * Pressors * In previous admissions, patient has been on Lantus ~30-50 units SC BID. This is while pt is on steroids and ordered a diet. Will start with 30 units x1 this AM (as pt did not receive PM Lantus 04/22 2nd hypoglycemia), but then decrease to 24 units BID for NPO status / risk for hypoglycemia * To prevent hyperglycemia (while on less aggressive Lantus with significant stressors as above) will change Novolog to q4h checks for now. * Goal range tighter than usual for ICU patient as pt is only receiving Novolog as correction factor 2nd NPO status 04/24/16 * BSG's trended down nicely, but may be a little low this AM for ICU status ( 125 mg/dL x2 with no additional insulin administered apart from Lantus). If stressors improve, pt is at risk for hypoglycemia on current regimen (per above) . Will therefore decrease Lantus aggressively, especially as patient has not required Novolog x2 while on current regimen. If BSG's trend up, will keep correction factor tight to address hyperglycemia. * Will transition back to q6h BSG checks as pt now has Lantus fully on-board, and increase goal range to prevent hypoglycemia PLAN FOR INPATIENT GLYCEMIC CONTROL: * Holding outpatient oral diabetes medications * Decrease Basal insulin with LANTUS 15 units SQ x1 then 20 units SC BID - 1/2 dose for BSG < 100 mg/dL * Correctional Insulin with NOVOLOG ACHS, or Q6H while NPO * Increase Goal Range: Low 140 mg/dL - High 180 mg/dL * Correction Factor: 10 mg/dL/unit * Nutritional / Prandial insulin per carb ratio of 1 unit per 4 grams CHO consumed (for when pt ordered diet) * Please note that the plan above was derived based on current level of insulin resistance and hospital stress. These recommendations are appropriate for inpatient admission only. Plan of care upon discharge will need to be reassessed to avoid potential outpatient hypo/hyperglycemia. Thank you.
[2016-04-24] MEDS ORDERED: ACETAMINOPHEN IV 650 MG in EMPTY BAG 0 ML IV PRN (12:15)
[2016-04-24] MEDS: PEPTAMEN INTENSE VHP 1000ML BAG GT SCH (13:06)
[2016-04-24] MEDS ORDERED: VANCOMYCIN TROUGH ONE (13:30)
[2016-04-24] MEDS ORDERED: FENTANYL CITRATE INJ 50 MCG/1 ML 2 ML VIAL IV PRN (14:30)
--- NOTE | 2016-04-24 15:44 | CRITICAL CARE PROGRESS NOTE ---
DATE: 04/24/2016 SUBJECTIVE: There were no acute events overnight. The patient was on 75 mcg per hour of fentanyl this morning. She failed a CPAP trial today off of her fentanyl. She was tachypneic. She is having a small amount of blood-streaked sputum. She does not seem to have any specific complaints, although it is difficult to communicate with her. She has tried to write on a clipboard but I cannot discern her handwriting. Her care was discussed in detail on multidisciplinary rounds. She has not had a bowel movement since she arrived in the ICU. PHYSICAL EXAMINATION: VITAL SIGNS: Maximum temperature 37.8, heart rate 112-130, respiratory rate 22-28, blood pressure 119-140s/60s-70s, oxygen saturation 97%. Ventilator settings assist control, tidal volume 500, rate 20, FiO2 40%, PEEP 5. 24-hour fluid balance positive 1.9 liters. GENERAL: She is awake and following commands. NEUROLOGIC: Her CAM assessment is negative. LUNGS: Have decreased breath sounds throughout, particularly in the bases. No rales, rhonchi or wheezes. HEART: Tachycardic, regular, distant. ABDOMEN: Morbidly obese, soft, nondistended, nontender. EXTREMITIES: Warm with 3+ pedal edema, 3+ pretibial edema. SKIN: Shows erythema from just below the knees bilaterally distally. LABORATORY DATA: White blood cell count 14.6, hemoglobin 7.9, hematocrit 30.3, platelets 141. Sodium 141, potassium 3.4, chloride 93, CO2 of 44, BUN 27, creatinine 0.78. Blood sugar 116. Blood cultures 04/22/2016, no growth to date. Urine culture 04/23/2016 less than 1000 colonies per mL, no growth. IMAGING: Portable chest x-ray from this morning was reviewed and shows mild pulmonary edema, cardiomegaly, bibasilar densities which are persistent. NG tube is within the stomach and not well visualized. MEDICATIONS AND INFUSIONS: Acetaminophen, amiodarone, Brovana, Pulmicort, Flonase nasal spray, Caltrate, chlorhexidine, fentanyl, Glucagon, insulin, Levaquin day 2, magnesium, Solu-Medrol, Singulair, Nystatin, Protonix, Zosyn day 2, vancomycin day 2, potassium, Carafate. IMPRESSION: 1. Acute on chronic hypercapnic hypoxemic respiratory failure. She failed CPAP today. She received acetazolamide yesterday 500 mg IV x1. Her serum bicarbonate is beginning to decrease. She is not wheezing, but she does have some mild pulmonary edema on her chest x-ray contributing to her respiratory failure. 2. Hypoglycemia, resolved. 3. History of atrial fibrillation. 4. Severe chronic obstructive pulmonary disease with possible acute exacerbation. 5. Acute on chronic diastolic dysfunction. 6. History of recent gastrointestinal bleed. Hemoglobin is trending down just a little bit. No signs of active bleeding. 7. History of obstructive sleep apnea, obesity and hypoventilation syndrome. 8. History of left upper lobe squamous carcinoma. 9. Tachycardia. PLAN: 1. Neurologic: She had been on a fentanyl infusion. Presently that is being held. She is very active in her bed. Resume fentanyl if she is having pain. If not, consider low dose propofol for generalized anxiety. Avoid benzodiazepines. 2. Pulmonary: Continue weaning trials. I will take her steroids down to 40 mg IV q. 6 hours. She is not wheezing. I have ordered another dose of Diamox and will check an arterial blood gas later today or tomorrow. 3. Cardiovascular: If her heart rate continues to be elevated, consider beta-austin. 4. Endocrine: Blood sugars are under good control. Many thanks to the pharmacy service for their assistance in managing her blood sugars. 5. Gastrointestinal: Begin tube feeds per dietary recommendations. Continue Protonix for GI prophylaxis. 6. Infectious disease: Zosyn and Levaquin day 2. She has also received vancomycin. I do not see any definite infection. I will discontinue the Levaquin. 7. Heme: Continue to follow H\T\H. Watch for any signs of active bleeding. Hold coumadin. due to anemia and recent gi bleed. 8. Renal: No acute issues. Watch volume status and see how she responds to the second dose of acetazolamide. I discussed her care with her daughter who was at the bedside. Questions were answered and support was provided. Critical care time 40 minutes. AKANKSHA
[2016-04-24] MEDS: METHYLPREDNISOLONE IV 40 MG in SYRINGE 0 ML IV SCH (16:05)
--- NOTE | 2016-04-24 16:24 | Progress Note ---
Internal Med Progress Note Date of Service: Apr 24, 2016. Provider Documentation: SUBJECTIVE: failed weaning trail this AM seen at bedside , remains on vent awake , able to communicate with writing and nodding OBJECTIVE: Vital Signs-as noted below Exam: General Appearance: morbidly obese intubated, awake , able to follow command Head: normocephalic, atraumatic Eyes: normal inspection, PERRL, EOMI, sclerae normal ENT: hearing grossly normal, + ET tube in place Neck: no adenopathy, thyroid normal, Respiratory/Chest: + pertinent finding ((+) bilateral crackles, wheezing) Cardiovascular: + irregularly irregular, + pertinent finding (mild lower leg edema, wrapped with dressing) Abdomen/GI: normal bowel sounds, non tender, soft Extremities/Musculoskeletal: + pertinent finding (mild lower leg edema, wrapped with dressing) Neurologic/Psych: + pertinent finding (pupils equal round reactive to light, moves all extremities equally, able to follow commands Lab data as noted below. ASSESSMENT & PLAN: 60 year old female with history of Chronic Respiratory Failure-recurrent admission for the same COPD, Obstructive Sleep Apnea, Obesity Hypoventilation Syndrome, CHF Diastolic Type, presenting with progressive shortness of breath x few days. pt was recently discharged on 04/16/16 -brought to ED with lethargy , changed mental status , hypoxia needed to be intubated in ED as pt was developing progressive respiratory distress , unable to protect airway ACUTE ON CHRONIC RESPIRATORY FAILURE multifactorial likely from Acute Diastolic CHF Exacerbation, COPD Exacerbation, possible Pneumonia-HCAP pt has chronic Hypercarbia due to obesity hypoventilation syndrome has not been complaint with Bipap in past intubated for respiratory failure appreciate input form Critical care given IV Lasix for pulmonary congestion with adequate diuresis on empiric Abx with Zosyn , Vanco ,Levaquin for HCAP -recently discharged form [facility] /sent form [facility] ICU monitoring failed weaning trial today poor prognosis HYPOTENSION resolved BP stable off from pressors /Phenylpehrine, HYPOGLYCEMIA resolved presented with BSG in 30's due to infection ? Pharmacy consulted for glycemic control appreciate input CHANGED MENTAL STATUS /LETHARGY : due to hypercarbia, CO2 retention , respiratory failure /hypoglycemia mental status gradually improved to baseline opening eyes , able to communicate with nodding , via writing CHRONIC A FIB continue Amio, Diltiazem, Metoprolol, Coumadin INR therapeutic ANEMIA OF CHRONIC DISEASE : hx of GI bleed was found not to be a suitable candidate for EGD for severe respiratory failure requires intermittent PRBC transfusion hb at baseline ~8 follow H&H given underlying cardiac hx pt requires PRBC tx for Hb < 8 DVT prophylaxis on Coumadin INR therapeutic Code Status -discussed with pt able to communicate /awake and alert nods head to full resuscitation -including repeat mechanical ventilation if developed respiratory failure after extubation chest compression /CPR with cardiac arrest Pt will remains as FULL CODE status Disposition remains critically ill in ICU was in [facility] prior to admission depending on pt's progression will need SNF vs LTAC placement Vital Signs: Date Time Temp Pulse Resp B/P Pulse Ox O2 Delivery O2 Flow Rate FiO2 04/24/16 14:24 40 04/24/16 14:00 37.2 115 28 117/69 95 04/24/16 12:00 37.8 130 119/72 04/24/16 12:00 96 Mechanical Ventilator 40 04/24/16 12:00 40 04/24/16 11:30 40 04/24/16 10:15 124 22 93 04/24/16 10:00 124 131/66 04/24/16 09:59 121 28 131/66 94 04/24/16 09:15 127 28 94 04/24/16 08:59 149 16 91/66 92 04/24/16 08:15 127 20 94 04/24/16 08:00 40 04/24/16 08:00 96 Mechanical Ventilator 40 04/24/16 07:59 37.6 139 26 142/119 82 04/24/16 07:59 40 04/24/16 07:52 40 04/24/16 07:28 120 22 128/71 95 04/24/16 07:15 119 22 96 04/24/16 06:28 118 21 119/76 96 Mechanical Ventilator 40 04/24/16 06:00 129 27 93 Mechanical Ventilator 40 04/24/16 05:59 124 24 121/80 94 Mechanical Ventilator 40 04/24/16 05:38 40 04/24/16 05:30 128 25 151/84 97 Mechanical Ventilator 40 04/24/16 05:00 37.1 98 23 96 Mechanical Ventilator 40 04/24/16 04:28 100 20 106/62 96 Mechanical Ventilator 40 04/24/16 04:00 108 20 96 Mechanical Ventilator 40 04/24/16 04:00 Mechanical Ventilator 40 04/24/16 04:00 40 04/24/16 03:58 102 20 107/58 96 Mechanical Ventilator 40 04/24/16 03:29 110 20 112/76 96 Mechanical Ventilator 40 04/24/16 03:00 110 20 96 Mechanical Ventilator 40 04/24/16 02:58 115 20 124/57 96 Mechanical Ventilator 40 04/24/16 02:28 120 24 129/63 97 Mechanical Ventilator 40 04/24/16 02:00 120 22 96 Mechanical Ventilator 40 04/24/16 01:58 116 20 114/62 94 Mechanical Ventilator 40 04/24/16 01:50 40 04/24/16 01:29 108 22 124/73 95 Mechanical Ventilator 40 04/24/16 01:00 130 20 100 Mechanical Ventilator 40 04/24/16 00:58 122 22 126/88 93 04/24/16 00:30 112 26 95 04/24/16 00:29 114 21 122/71 96 04/24/16 00:00 Mechanical Ventilator 40 04/24/16 00:00 40 04/24/16 00:00 36.9 119 20 95 Mechanical Ventilator 40 04/23/16 23:59 113 23 143/65 94 04/23/16 23:56 117 20 141/73 95 04/23/16 23:40 40 04/23/16 23:30 119 22 93 04/23/16 23:28 116 21 141/73 92 Mechanical Ventilator 40 04/23/16 23:00 125 20 04/23/16 22:30 103 23 95 04/23/16 22:29 102 22 105/69 95 04/23/16 22:00 102 20 97 04/23/16 21:59 37.1 99 21 120/58 95 Mechanical Ventilator 40 04/23/16 21:28 98 20 118/60 98 04/23/16 21:00 97 19 96 04/23/16 21:00 97 19 96 04/23/16 20:59 112 18 112/68 93 Mechanical Ventilator 40 04/23/16 20:45 109 17 95 04/23/16 20:42 40 04/23/16 20:30 108 22 95 04/23/16 20:29 107 24 127/59 95 04/23/16 20:15 130 20 82 40 04/23/16 20:00 40 04/23/16 20:00 95 Mechanical Ventilator 40 04/23/16 20:00 114 24 95 04/23/16 20:00 114 22 95 Mechanical Ventilator 40 04/23/16 20:00 114 24 95 04/23/16 19:59 37.3 115 22 124/52 94 04/23/16 19:45 118 21 96 04/23/16 19:33 40 04/23/16 19:30 112 22 92 04/23/16 19:28 122 24 123/81 91 Mechanical Ventilator 40 04/23/16 19:15 113 23 92 04/23/16 19:00 109 25 94 04/23/16 18:00 98 20 97 04/23/16 17:59 104 20 119/56 96 04/23/16 17:30 104 20 96 04/23/16 17:29 101 22 112/59 96 04/23/16 17:00 101 19 95 04/23/16 16:58 107 30 100/61 95 04/23/16 16:30 110 27 90 04/23/16 16:29 110 26 118/72 90 Lab Results: Results Past 24 Hours Test 04/23/16 16:46 04/23/16 19:51 04/23/16 23:51 04/24/16 04:10 Range/Units Bedside Glucose 233 167 174 125 70-90 mg/dl Test 04/24/16 05:51 04/24/16 07:44 04/24/16 13:23 Range/Units White Blood Count 14.60 4.8-10.8 K/uL Red Blood Count 3.02 4.2-5.4 M/uL Hemoglobin 7.9 12.0-16.0 g/dL Hematocrit 30.3 37-47 % Mean Corpuscular Volume 100.3 80-100 fL Mean Corpuscular Hemoglobin 26.2 25-34 pg Mean Corpuscular Hemoglobin Concent 26.1 32-36 g/dl Platelet Count 141 130-400 K/uL Mean Platelet Volume 9.4 7.4-10.4 fL Neutrophils (%) (Auto) 94.8 % Lymphocytes (%) (Auto) 0.3 % Monocytes (%) (Auto) 4.1 % Eosinophils (%) (Auto) 0.0 % Basophils (%) (Auto) 0.0 % Neutrophils # (Auto) 13.83 1.4-6.5 K/uL Lymphocytes # (Auto) 0.05 1.2-3.4 K/uL Monocytes # (Auto) 0.60 0.11-0.59 K/uL Eosinophils # (Auto) 0.00 0-0.5 K/uL Basophils # (Auto) 0.00 0-0.2 K/uL RDW Standard Deviation 75.5 36.4-46.3 fL RDW Coefficient of Variation 20.7 11.5-14.5 % Immature Granulocyte % (Auto) 0.8 % Immature Granulocyte # (Auto) 0.12 0.00-0.02 K/uL Nucleated RBC Absolute Count (auto) 0.06 0-0 K/uL Nucleated Red Blood Cells % 0.4 % Polychromasia 1+ Hypochromasia PRESENT Basophilic Stippling 1+ Anisocytosis PRESENT Stomatocytes 2+ Prothrombin Time 18.7 9.0-12.0 SECONDS Prothromb Time International Ratio 1.7 0.9-1.1 Sodium Level 141 136-145 mmol/L Potassium Level 3.4 3.5-5.1 mmol/L Chloride Level 93 98-107 mmol/L Carbon Dioxide Level 44 21-32 mmol/L Anion Gap 4.0 3-11 mmol/L Blood Urea Nitrogen 27 7-18 mg/dl Creatinine 0.78 0.60-1.20 mg/dl Est Creatinine Clear Calc Drug Dose 101.5 ml/min Estimated GFR () 94.4 Estimated GFR (Non- 81.5 BUN/Creatinine Ratio 34.1 10-20 Random Glucose 116 70-99 mg/dl Calcium Level 8.1 8.5-10.1 mg/dl Phosphorus Level 2.9 2.5-4.9 mg/dl Magnesium Level 2.3 1.8-2.4 mg/dl Bedside Glucose 125 70-90 mg/dl Vancomycin Level Trough 25.5 SEE COMMENT mcg/ml
[2016-04-24] MEDS: INCRUSE ELLIPTA~ORDER AWAITING ACTION SCH ×3 (20:00→23:27)
[2016-04-24] MEDS: MONTELUKAST SOD 10 MG TAB PO SCH (20:03)
[2016-04-24] MEDS: INSULIN GLARGINE SOLOSTAR 100 UNITS/ML 3 ML PEN SQ SCH (20:45)
[2016-04-24] MEDS ORDERED: INSULIN GLARGINE SOLOSTAR 100 UNITS/ML 3 ML PEN SQ SCH (21:00)
[2016-04-25] VITALS (22 sets, daily range): BP systolic 111–152; BP diastolic 63–87; PULSE 96–135; TEMP 36.8–37.2; O2SAT 93–100
[2016-04-25] MEDS: METHYLPREDNISOLONE IV 40 MG in SYRINGE 0 ML IV SCH ×3 (00:12→16:45)
[2016-04-25] MEDS: INSULIN ASPART 100 UNITS/ML 3 ML PEN SC SCH ×5 (00:27→20:42)
[2016-04-25] MEDS: PIPERACILL/TAZOBAC IV 4.5 GM in DEXTROSE 5% 100ML IV SCH ×3 (05:50→22:08)
[2016-04-25] MEDS ORDERED: VANCOMYCIN INJ 1,400 MG in SODIUM CHLORIDE 0.9% 500ML 500 ML IV SCH (06:00)
[2016-04-25 06:03] LABS: INR 1.5 (0.9-1.1); PROTHROMBIN TIME (PATIENT) 16.1 SECONDS (9.0-12.0)
[2016-04-25 06:25] LABS: HEMATOCRIT 29.2 % (37-47); MEAN CELL VOLUME 99.7 fL (80-100); MEAN CORPUSCULAR HEMOGLOBIN 26.6 pg (25-34); MEAN CORPUSCULAR HGB CONC 26.7 g/dl (32-36); MEAN PLATELET VOLUME 9.3 fL (7.4-10.4); PLATELET COUNT 125 K/uL (130-400); RED BLOOD COUNT 2.93 M/uL (4.2-5.4); WHITE BLOOD COUNT 15.02 K/uL (4.8-10.8)
[2016-04-25 06:30] LABS: BUN/CREATININE RATIO 40.5 (10-20); CALCIUM 8.2 mg/dl (8.5-10.1); CREATININE 0.75 mg/dl (0.60-1.20); MAGNESIUM 2.4 mg/dl (1.8-2.4); PHOSPHORUS 2.3 mg/dl (2.5-4.9); POTASSIUM 3.4 mmol/L (3.5-5.1)
[2016-04-25 06:37] LABS: ANISOCYTOSIS PRESENT; COMPLETE YES; LYMPH ABS # 0.27 K/uL (1.2-3.4); LYMPHOCYTE % 1.8 %; NEUTROPHILS % 96.4 %; POLYCHROMASIA 1+; STOMATOCYTE 1+
[2016-04-25] MEDS: ARFORMOTEROL TART 15MCG/2ML VIAL INH SCH ×2 (07:46→20:17)
[2016-04-25] MEDS: BUDESONIDE 0.5 MG/2 ML VIAL (PULMICORT) INH SCH ×2 (07:46→20:17)
[2016-04-25] MEDS: INCRUSE ELLIPTA~ORDER AWAITING ACTION SCH ×2 (07:53→16:00)
[2016-04-25] MEDS: PANTOprazole INJ 40 MG in SYRINGE 0 ML IV SCH (07:57)
[2016-04-25] MEDS: NYSTATIN POWDER 15GM BTL EXT SCH ×2 (07:57→20:43)
[2016-04-25] MEDS: AMIODARONE 200 MG TAB PO SCH ×3 (07:58→20:50)
[2016-04-25] MEDS: CALCIUM 600MG + VIT D 400 IU TAB PO SCH ×2 (07:58→20:48)
[2016-04-25] MEDS: CHLORHEXIDINE GLUCONATE 0.12% 480 ML MT SCH ×2 (07:58→20:44)
[2016-04-25] MEDS: SUCRALFATE 1 GM/10 ML UDC PO SCH ×4 (07:58→20:48)
[2016-04-25] MEDS: CALCITONIN SALMON NA 200 IU/AC 3.7 ML BTL SCH (07:58)
[2016-04-25] MEDS: LACTOBACILLUS ACIDOPHILUS (FLORANEX) TAB PO SCH ×2 (07:59→20:50)
[2016-04-25] MEDS: POTASSIUM CHLORIDE 20 MEQ TABCR PO SCH (07:59)
[2016-04-25] MEDS: MAGNESIUM OXIDE 400 MG TAB PO SCH ×2 (07:59→20:51)
[2016-04-25] MEDS: INSULIN GLARGINE SOLOSTAR 100 UNITS/ML 3 ML PEN SQ SCH ×2 (09:57→20:43)
[2016-04-25] MEDS ORDERED: INSULIN ASPART 100 UNITS/ML 3 ML PEN SC ONE (10:00)
[2016-04-25] MEDS ORDERED: POTASSIUM CHLORIDE 20 MEQ/15 ML UDC PO ONE (10:00)
--- NOTE | 2016-04-25 10:38 | Pharmacy Progress Note ---
Glycemic Control: Progress Nt Date of Service Apr 25, 2016. Scope Glycemic Pharmacist consulted by Dr Mahajan on 04/23 for glycemic control and to write orders per [facility] inpatient glycemic control protocol. Objective Accuchecks BSG (last 24hrs): Test 04/24/16 16:00 04/24/16 20:42 04/25/16 00:02 04/25/16 05:33 Bedside Glucose 199 mg/dl (70-90) 206 mg/dl (70-90) 195 mg/dl (70-90) 204 mg/dl (70-90) Random Glucose 201 mg/dl (70-99) Laboratory Data (last 24hrs) Test 04/25/16 05:33 Anion Gap 6.0 mmol/L BUN/Creatinine Ratio 40.5 Blood Urea Nitrogen 30 mg/dl Creatinine 0.75 mg/dl Potassium Level 3.4 mmol/L Sodium Level 142 mmol/L White Blood Count 15.02 K/uL Red Blood Count 2.93 M/uL Hemoglobin 7.8 g/dL Hematocrit 29.2 % Mean Corpuscular Volume 99.7 fL Mean Corpuscular Hemoglobin 26.6 pg Mean Corpuscular Hemoglobin Concent 26.7 g/dl Platelet Count 125 K/uL Mean Platelet Volume 9.3 fL Recent Pertinent Medications Outpatient Anti-diabetic Regimen: * Lantus 30 units SC BID * Novolog SC ACHS: 22, 18, 22, 10 units respectively, plus additional sliding scale * Januvia 50 mg po qAM * A1c = 5.8 % 04/10/16 The patient is currently receiving: * Basal insulin: Lantus 20 units SC BID * Correctional Insulin: Novolog Correction per scale ACHS Goal Range: Low 140 mg/dL - High 180 mg/dL Correction Factor: 10 mg/dL/unit * Prandial insulin: 1 unit Novolog for every 4 g CHO consumed (TF started 04/24 PM but pt has not received CHO coverage, yet) * Oral Agents: On hold Risk Factors for Insulin Resistance: * Steroids: methylprednisolone 60 mg IV q8h tapered to 40 mg IV q8h 04/24 * Infection: ?PNA - on Zosyn * Diet: NPO (Peptamen at goal of 55 mL/hr per RN on rounds) * Mechanical Ventilation: YES Assessment & Plan ASSESSMENT: * ADA & AACE recommend a goal blood sugar range 140-180 mg/dl for the majority of critically ill & non-critically ill patients. However, more stringent targets may be selected in individual cases. 04/23/16 * 60 yo F with T2DM well-known to our service admitted to ICU for respiratory failure * Patient at risk for hypoglycemia 2nd the following: * NPO status * Low HbA1c of 5.8% * Recent hypoglycemia to 30 mg/dL * Patient also at risk for hyperglycemia 2nd significant stressors * Critically ill in ICU * On IV steroids * Mechanically vented * Pressors * In previous admissions, patient has been on Lantus ~30-50 units SC BID. This is while pt is on steroids and ordered a diet. Will start with 30 units x1 this AM (as pt did not receive PM Lantus 04/22 2nd hypoglycemia), but then decrease to 24 units BID for NPO status / risk for hypoglycemia * To prevent hyperglycemia (while on less aggressive Lantus with significant stressors as above) will change Novolog to q4h checks for now. * Goal range tighter than usual for ICU patient as pt is only receiving Novolog as correction factor 2nd NPO status 04/24/16 * BSG's trended down nicely, but may be a little low this AM for ICU status ( 125 mg/dL x2 with no additional insulin administered apart from Lantus). If stressors improve, pt is at risk for hypoglycemia on current regimen (per above) . Will therefore decrease Lantus aggressively, especially as patient has not required Novolog x2 while on current regimen. If BSG's trend up, will keep correction factor tight to address hyperglycemia. * Will transition back to q6h BSG checks as pt now has Lantus fully on-board, and increase goal range to prevent hypoglycemia 04/25/16 * BSG's trending up 2nd Peptamen starting 04/24 PM without carb coverage being administered. Peptamen now at goal of 55 mL/hr per RN on rounds. This delivers 25g CHO every 6 hours (or 17g CHO every 4 hours). * Discussed with RN - will cover CHO in Peptamen with carb ratio on Novolog order. Will provide an additional bolus of Novolog this AM to cover carbs in Peptamen prior to 0600 check. * Will loosen carb ratio for now to ensure patient does not become hypoglycemic. May tighten back later today if BSG's increase significantly. * While on continuous tube feeds, BSG's tend to respond best to Novolog coverage q4h. Will adjust. PLAN FOR INPATIENT GLYCEMIC CONTROL: * Holding outpatient oral diabetes medications * Basal insulin with LANTUS 20 units SQ BID - 1/2 dose for BSG < 120 mg/dL * Change Correctional Insulin with NOVOLOG to Q4H while on continuous tube feeds * Goal Range: Low 140 mg/dL - High 180 mg/dL * Correction Factor: 10 mg/dL/unit * Loosen Nutritional / Prandial insulin per carb ratio of 1 unit per 5 grams CHO consumed (including CHO in tube feeds) * Please note that the plan above was derived based on current level of insulin resistance and hospital stress. These recommendations are appropriate for inpatient admission only. Plan of care upon discharge will need to be reassessed to avoid potential outpatient hypo/hyperglycemia. Thank you.
[2016-04-25 10:47] LABS: ISTAT ALLEN TEST Pass; ISTAT ARTERIAL BLOOD GAS HCO3 44 meq/L (19-24); ISTAT ARTERIAL BLOOD GAS PCO2 88 mmHg (35-46); ISTAT ARTERIAL BLOOD GAS PO2 70 mmHg (80-95); ISTAT ARTERIAL BLOOD GAS pH 7.31 (7.35-7.45); ISTAT CARBON DIOXIDE > 40 mEq/l (24-31); ISTAT DELIVERY SYSTEM Ventilator; ISTAT FIO2 40 %; ISTAT PEEP 5; ISTAT RATE 20; ISTAT SITE L Radial; VE 9.3; Vt 500
[2016-04-25] MEDS: WARFARIN SOD 5 MG TAB PO SCH (16:44)
[2016-04-25] MEDS: PEPTAMEN INTENSE VHP 1000ML BAG GT SCH (17:25)
[2016-04-25] MEDS ORDERED: VANCOMYCIN TROUGH ONE (17:30)
[2016-04-25] MEDS ORDERED: NURSING VERBAL MED ORDER ONE ×2 (18:30→20:45)
[2016-04-25] MEDS: TUBE FEEDING WATER FLUSH NG SCH (20:00)
[2016-04-25] MEDS ORDERED: METOPROLOL TARTRATE 1 MG/ML VIAL ONE (20:38)
[2016-04-25] MEDS: POTASSIUM CHLORIDE 20 MEQ/15 ML UDC PO SCH (20:51)
[2016-04-25] MEDS: MONTELUKAST SOD 10 MG TAB PO SCH (20:52)
[2016-04-25] MEDS ORDERED: METOPROLOL TARTRATE 25 MG TAB PO ONE (21:00)
--- NOTE | 2016-04-25 22:55 | Progress Note ---
Internal Med Progress Note Date of Service: Apr 25, 2016. Provider Documentation: SUBJECTIVE: pt was put on CPAP trial this AM remains intubated able to communicate by writing and nodding OBJECTIVE: Vital Signs-as noted below Exam: General Appearance: morbidly obese intubated, awake , able to follow command Head: normocephalic, atraumatic Eyes: normal inspection, PERRL, EOMI, sclerae normal ENT: hearing grossly normal, + ET tube in place Neck: no adenopathy, thyroid normal, Respiratory/Chest: + pertinent finding ((+) bilateral crackles, wheezing) Cardiovascular: + irregularly irregular, + pertinent finding (mild lower leg edema, wrapped with dressing) Abdomen/GI: normal bowel sounds, non tender, soft Extremities/Musculoskeletal: + pertinent finding (mild lower leg edema, wrapped with dressing) Neurologic/Psych: + pertinent finding (pupils equal round reactive to light, moves all extremities equally, able to follow commands Lab data as noted below. ASSESSMENT & PLAN: 60 year old female with history of Chronic Respiratory Failure-recurrent admission for the same COPD, Obstructive Sleep Apnea, Obesity Hypoventilation Syndrome, CHF Diastolic Type, presenting with progressive shortness of breath x few days. pt was recently discharged on 04/16/16 -brought to ED with lethargy , changed mental status , hypoxia needed to be intubated in ED as pt was developing progressive respiratory distress , unable to protect airway ACUTE ON CHRONIC RESPIRATORY FAILURE multifactorial likely from Acute Diastolic CHF Exacerbation, COPD Exacerbation, possible Pneumonia-HCAP pt has chronic Hypercarbia due to obesity hypoventilation syndrome has not been complaint with Bipap in past intubated for respiratory failure appreciate input form Critical care given IV Lasix for pulmonary congestion with adequate diuresis on empiric Abx with Zosyn , Vanco ,Levaquin for HCAP -recently discharged form [facility] /sent form [facility] ICU monitoring continue CPAP trail HYPOTENSION resolved BP stable off from pressors /Phenylpehrine, HYPOGLYCEMIA resolved presented with BSG in 30's due to infection ? Pharmacy consulted for glycemic control appreciate input CHANGED MENTAL STATUS /LETHARGY : due to hypercarbia, CO2 retention , respiratory failure /hypoglycemia mental status gradually improved to baseline opening eyes , able to communicate with nodding , via writing CHRONIC A FIB continue Amio, Diltiazem, Metoprolol, Coumadin INR therapeutic ANEMIA OF CHRONIC DISEASE : hx of GI bleed was found not to be a suitable candidate for EGD for severe respiratory failure requires intermittent PRBC transfusion hb at baseline ~8 follow H&H given underlying cardiac hx pt requires PRBC tx for Hb < 8 DVT prophylaxis on Coumadin INR therapeutic Code Status -discussed with pt able to communicate /awake and alert nods head to full resuscitation -including repeat mechanical ventilation if developed respiratory failure after extubation chest compression /CPR with cardiac arrest Pt will remains as FULL CODE status Disposition remains critically ill in ICU was in [facility] prior to admission depending on pt's progression will need SNF vs LTAC placement Vital Signs: Date Time Temp Pulse Resp B/P Pulse Ox O2 Delivery O2 Flow Rate FiO2 04/25/16 23:11 40 04/25/16 21:31 116 152/86 04/25/16 20:21 40 04/25/16 20:00 95 Mechanical Ventilator 40 04/25/16 20:00 40 04/25/16 18:00 40 04/25/16 18:00 120 21 118/86 95 Mechanical Ventilator 40 04/25/16 16:00 37.0 135 21 146/87 94 CPAP 40 04/25/16 16:00 94 Mechanical Ventilator 40 04/25/16 15:10 40 04/25/16 14:00 114 15 124/83 94 CPAP 04/25/16 12:50 40 04/25/16 12:00 40 04/25/16 12:00 37.1 115 20 112/72 98 Mechanical Ventilator 40 04/25/16 12:00 98 Mechanical Ventilator 40 04/25/16 11:38 40 04/25/16 10:00 113 20 111/65 97 Mechanical Ventilator 40 04/25/16 08:02 40 04/25/16 08:00 94 Mechanical Ventilator 40 04/25/16 08:00 40 04/25/16 08:00 37.1 126 22 146/65 94 Mechanical Ventilator 40 04/25/16 05:05 40 04/25/16 04:00 107 20 98 04/25/16 04:00 96 Mechanical Ventilator 40 04/25/16 04:00 40 04/25/16 03:59 37.2 98 20 122/80 97 Mechanical Ventilator 40 04/25/16 03:00 101 20 98 04/25/16 02:00 113 28 97 04/25/16 02:00 40 04/25/16 01:59 118 22 124/65 98 04/25/16 01:00 110 24 97 04/25/16 00:00 98 Mechanical Ventilator 40 04/25/16 00:00 40 04/25/16 00:00 36.8 100 22 100 Mechanical Ventilator 40 Lab Results: Results Past 24 Hours Test 04/25/16 00:02 04/25/16 05:33 04/25/16 10:34 04/25/16 12:09 Range/Units Bedside Glucose 195 204 254 70-90 mg/dl White Blood Count 15.02 4.8-10.8 K/uL Red Blood Count 2.93 4.2-5.4 M/uL Hemoglobin 7.8 12.0-16.0 g/dL Hematocrit 29.2 37-47 % Mean Corpuscular Volume 99.7 80-100 fL Mean Corpuscular Hemoglobin 26.6 25-34 pg Mean Corpuscular Hemoglobin Concent 26.7 32-36 g/dl Platelet Count 125 130-400 K/uL Mean Platelet Volume 9.3 7.4-10.4 fL RDW Standard Deviation 74.2 36.4-46.3 fL RDW Coefficient of Variation 20.4 11.5-14.5 % Nucleated RBC Absolute Count (auto) 0.07 0-0 K/uL Neutrophils % (Manual) 96.4 % Lymphocytes % (Manual) 1.8 % Monocytes % (Manual) 1.8 % Nucleated Red Blood Cells % 0.5 % Neutrophils # (Manual) 14.48 1.4-6.5 K/uL Total Absolute Neutrophils 14.48 1.4-6.5 K/uL Lymphocytes # (Manual) 0.27 1.2-3.4 K/uL Total Absolute Lymphocytes 0.27 1.2-3.4 K/uL Monocytes # (Manual) 0.27 0.11-0.59 K/uL Polychromasia 1+ Basophilic Stippling 1+ Anisocytosis PRESENT Stomatocytes 1+ Prothrombin Time 16.1 9.0-12.0 SECONDS Prothromb Time International Ratio 1.5 0.9-1.1 Sodium Level 142 136-145 mmol/L Potassium Level 3.4 3.5-5.1 mmol/L Chloride Level 93 98-107 mmol/L Carbon Dioxide Level 43 21-32 mmol/L Anion Gap 6.0 3-11 mmol/L Blood Urea Nitrogen 30 7-18 mg/dl Creatinine 0.75 0.60-1.20 mg/dl Est Creatinine Clear Calc Drug Dose 105.6 ml/min Estimated GFR () 99.0 Estimated GFR (Non- 85.4 BUN/Creatinine Ratio 40.5 10-20 Random Glucose 201 70-99 mg/dl Calcium Level 8.2 8.5-10.1 mg/dl Phosphorus Level 2.3 2.5-4.9 mg/dl Magnesium Level 2.4 1.8-2.4 mg/dl Blood Gas Sample Site L Radial Bedside Blood Gas pH (LAB) 7.31 7.35-7.45 Bedside Blood Gas pCO2 (LAB) 88 35-46 mmHg Bedside Blood Gas pO2 (LAB) 70 80-95 mmHg Bedside Blood Gas HCO3 (LAB) 44 19-24 meq/L Bedside Blood Gas Total CO2 > 40 24-31 mEq/l Bedside Blood Gas Base Excess (LAB) 18.0 -9-1.8 meq/L Bedside Blood Gas O2 Saturation 90.0 90-95 % Pablo Test Pass Oxygen Delivery Device Ventilator Bedside Oxygen Rate (breaths/min) 20 Blood Gas Minute Ventilation 9.3 Bedside FiO2 40 % Blood Gas Tidal Volume 500 Blood Gas PEEP 5 Test 04/25/16 15:43 04/25/16 20:23 Range/Units Bedside Glucose 224 246 70-90 mg/dl
--- NOTE | 2016-04-25 23:43 | CRITICAL CARE PROGRESS NOTE ---
DATE: 04/25/2016 SUBJECTIVE: There were no acute events last night or throughout the day today. She was able to tolerate CPAP 10/8 today and is always very animated even if she is getting sedation. She has not received any sedation throughout the day today that I can see. She is not having significant endotracheal tube secretions and she had a bowel movement today. She denies shortness of breath and pain. She was tachycardic to the 120s to 130s on CPAP which unfortunately has not improved since she was placed back on assist control. PHYSICAL EXAMINATION: VITAL SIGNS: Maximum temperature is 37.2, heart rate 98-135, respiratory rate 15-21, blood pressure 118-146/80s, oxygen saturation 94%. Ventilator settings, assist control rate 20, tidal volume 500, FiO2 40%, PEEP 5. 24-hour fluid balance is positive 984 mL. NEUROLOGIC: She will awaken and follow commands. Her CAM assessment is negative. She is able to express her needs with a pen and paper. LUNGS: Have very diminished breath sounds throughout and I do not hear any rales, rhonchi or wheezes. HEART: Distant, tachycardic, regular, 2/6 murmur at the apex. ABDOMEN: Morbidly obese, soft, nondistended, nontender. Active bowel sounds. EXTREMITIES: With 3+ edema and erythema of the skin from just below the knee distally bilaterally. LABORATORY DATA: White blood cell count 15, hemoglobin 7.8, hematocrit 29.2, platelets 125. Sodium 142, potassium 3.4, chloride 93, CO2 43, BUN 30, creatinine 0.75, blood sugar 201-254 today, phosphorus 2.3. INR 1.5. MEDICATIONS AND INFUSIONS: Acetaminophen, amiodarone, Brovana, Pulmicort, Fortical nasal spray, calcium, chlorhexidine, Peptamen tube feeds at 55 mL per hour, fentanyl p.r.n., Haldol p.r.n., Lantus sliding scale insulin, Floranex, magnesium oxide, Solu-Medrol, Singulair, nystatin, Protonix, Zosyn day 3, warfarin, sucralfate, potassium chloride. IMPRESSION: 1. Acute on chronic hypercapnic respiratory failure with an improvement on her CPAP trial today. I think her respiratory failure is multifactorial. 2. Hypoglycemia, resolved. 3. Atrial fibrillation with rapid ventricular response. 4. Severe chronic obstructive pulmonary disease. 5. Acute on chronic diastolic dysfunction. 6. Recent gastrointestinal bleed with stable hemoglobin. 7. History of obstructive sleep apnea, obesity and hypoventilation syndrome. 8. History of left upper lobe squamous cell carcinoma. 9. Tachycardia. PLAN: 1. Neurologic: Continue due to avoid sedatives if at all possible. She seems to be tolerating things relatively well all things considered without being sedated. 2. Pulmonary: Continue weaning trials. She has been noncompliant with her BiPAP prior to intubation which has resulted in multiple admissions in the past 10 months at least. I think it would be reasonable to give her a trial of extubation but I also think that tracheostomy is also an option, particularly due to her obstructive sleep apnea and obesity-hypoventilation syndrome. Continue bronchodilators and begin tapering her steroids tomorrow. Consider more Diamox. 3. Cardiovascular: I have started scheduled and p.r.n. beta blockade. 4. Endocrine: Many thanks to the pharmacy service for helping to manage her blood sugars. She is high this evening and I am sure the appropriate adjustments will be made. 5. Gastrointestinal: Continue tube feeds as well as GI prophylaxis. 6. Infectious Disease: Continue Zosyn for one more day at least. Reassess discontinuation tomorrow. 7. Hematologic: If her blood count counts drop any lower, I will transfuse her 1 unit of packed red blood cells. She was started back on her Coumadin today. 8. Renal: Continue diuresis if possible. Critical care time 40 minutes.
[2016-04-26] VITALS (51 sets, daily range): BP systolic 104–176; BP diastolic 57–101; PULSE 85–122; TEMP 36.6–37.7; O2SAT 90–100
[2016-04-26] MEDS ORDERED: METOPROLOL TARTRATE 25 MG TAB PO ONE
[2016-04-26] MEDS: TUBE FEEDING WATER FLUSH NG SCH ×7 (00:20→23:38)
[2016-04-26] MEDS: INSULIN ASPART 100 UNITS/ML 3 ML PEN SC SCH ×7 (00:39→23:52)
[2016-04-26] MEDS: METHYLPREDNISOLONE IV 40 MG in SYRINGE 0 ML IV SCH ×3 (00:40→16:08)
[2016-04-26] MEDS: PIPERACILL/TAZOBAC IV 4.5 GM in DEXTROSE 5% 100ML IV SCH ×3 (05:36→22:56)
[2016-04-26 06:08] LABS: INR 1.5 (0.9-1.1); PROTHROMBIN TIME (PATIENT) 16.4 SECONDS (9.0-12.0)
[2016-04-26 06:43] LABS: HEMATOCRIT 27.5 % (37-47); MEAN CORPUSCULAR HEMOGLOBIN 26.2 pg (25-34); MEAN CORPUSCULAR HGB CONC 26.2 g/dl (32-36); MEAN PLATELET VOLUME 9.5 fL (7.4-10.4); PLATELET COUNT 116 K/uL (130-400); RED BLOOD COUNT 2.75 M/uL (4.2-5.4); WHITE BLOOD COUNT 10.15 K/uL (4.8-10.8)
[2016-04-26 06:44] LABS: ANISOCYTOSIS PRESENT; COMPLETE YES; NEUTROPHILS % 99.1 %; POLYCHROMASIA 1+
[2016-04-26 06:58] LABS: BUN/CREATININE RATIO 53.2 (10-20); CALCIUM 8.5 mg/dl (8.5-10.1); CREATININE 0.66 mg/dl (0.60-1.20); MAGNESIUM 2.2 mg/dl (1.8-2.4); PHOSPHORUS 1.5 mg/dl (2.5-4.9)
[2016-04-26 07:18] LABS: BETA-HYDROXYBUTYRATE 3.55 mg/dL (0.2-2.81)
[2016-04-26] MEDS: INCRUSE ELLIPTA~ORDER AWAITING ACTION SCH ×4 (08:00→23:22)
--- NOTE | 2016-04-26 08:07 | DIAGNOSTIC IMAGING REPORT ---
CHEST ONE VIEW PORTABLE CLINICAL HISTORY: respiratory failure COMPARISON STUDY: 04/24/2016 FINDINGS: The examination is limited from a technical standpoint. The nasogastric tube, endotracheal tube, bilateral central venous catheters remain in similar position. The heart is mildly enlarged. There is a left upper lobe pulmonary nodule with adjacent fiducial markings.[ There is diffuse an essential thickening, likely secondary to congestive failure/fluid overload. IMPRESSION: Stable findings Electronically signed by: Silvestre Neely M.D. 04/26/2016 8:05 AM
[2016-04-26] MEDS: BUDESONIDE 0.5 MG/2 ML VIAL (PULMICORT) INH SCH ×2 (08:13→19:46)
[2016-04-26] MEDS: ARFORMOTEROL TART 15MCG/2ML VIAL INH SCH ×2 (08:14→19:46)
[2016-04-26] MEDS: CALCIUM 600MG + VIT D 400 IU TAB PO SCH ×2 (08:45→20:16)
[2016-04-26] MEDS: LACTOBACILLUS ACIDOPHILUS (FLORANEX) TAB PO SCH ×2 (08:46→20:19)
[2016-04-26] MEDS: AMIODARONE 200 MG TAB PO SCH ×3 (08:46→20:17)
[2016-04-26] MEDS: MAGNESIUM OXIDE 400 MG TAB PO SCH ×2 (08:47→20:20)
[2016-04-26] MEDS: POTASSIUM CHLORIDE 20 MEQ/15 ML UDC PO SCH ×2 (08:47→20:19)
[2016-04-26] MEDS: SUCRALFATE 1 GM/10 ML UDC PO SCH ×4 (08:48→20:16)
[2016-04-26] MEDS: CALCITONIN SALMON NA 200 IU/AC 3.7 ML BTL SCH (08:48)
[2016-04-26] MEDS: CHLORHEXIDINE GLUCONATE 0.12% 480 ML MT SCH ×2 (08:49→20:15)
[2016-04-26] MEDS: INSULIN GLARGINE SOLOSTAR 100 UNITS/ML 3 ML PEN SQ SCH ×2 (08:51→20:22)
[2016-04-26] MEDS: PANTOprazole SOD 40 MG TAB PO SCH (09:04)
[2016-04-26] MEDS ORDERED: POTASSIUM PHOS 3 MMOL/1 ML INFUSION IV STA (11:24)
[2016-04-26] MEDS ORDERED: SODIUM PHOSPHATE 3 MMOL/1 ML INFUSION IV STA (11:27)
--- NOTE | 2016-04-26 11:31 | Progress Note ---
Internal Med Progress Note Date of Service: Apr 26, 2016. Provider Documentation: SUBJECTIVE: awake and alert , no CPAP plan for extubation later today pt able to communicate via writing family members present at bedside OBJECTIVE: Vital Signs-as noted below Exam: General Appearance: morbidly obese intubated, awake , able to follow command Head: normocephalic, atraumatic Eyes: normal inspection, PERRL, EOMI, sclerae normal ENT: hearing grossly normal, + ET tube in place Neck: no adenopathy, thyroid normal, Respiratory/Chest: + pertinent finding ((+) bilateral crackles, wheezing) Cardiovascular: + irregularly irregular, + pertinent finding (mild lower leg edema, wrapped with dressing) Abdomen/GI: normal bowel sounds, non tender, soft Extremities/Musculoskeletal: + pertinent finding (mild lower leg edema, wrapped with dressing) Neurologic/Psych: + pertinent finding (pupils equal round reactive to light, moves all extremities equally, able to follow commands Lab data as noted below. ASSESSMENT & PLAN: 60 year old female with history of Chronic Respiratory Failure-recurrent admission for the same COPD, Obstructive Sleep Apnea, Obesity Hypoventilation Syndrome, CHF Diastolic Type, presenting with progressive shortness of breath x few days. pt was recently discharged on 04/16/16 -brought to ED with lethargy , changed mental status , hypoxia needed to be intubated in ED as pt was developing progressive respiratory distress , unable to protect airway ACUTE ON CHRONIC RESPIRATORY FAILURE multifactorial likely from Acute Diastolic CHF Exacerbation, COPD Exacerbation, possible Pneumonia-HCAP pt has chronic Hypercarbia due to obesity hypoventilation syndrome has not been complaint with Bipap in past intubated for respiratory failure appreciate input form Critical care given IV Lasix for pulmonary congestion with adequate diuresis on empiric Abx with Zosyn , Vanco ,Levaquin for HCAP -recently discharged form [facility] /sent form [facility] ICU monitoring continue CPAP trail -plan to extubate today HYPOTENSION resolved BP stable off from pressors /Phenylpehrine, LOW PHOS : phos 1.5 ordered for IV Na phos ( k level 4. 4 ) repeat Phos , PRP level at 1600 HYPOGLYCEMIA resolved ; BSG elevated now -possible due to steroids presented with BSG in 30's Pharmacy consulted for glycemic control appreciate input CHANGED MENTAL STATUS /LETHARGY : resolved due to hypercarbia, CO2 retention , respiratory failure /hypoglycemia mental status gradually improved to baseline opening eyes , able to communicate with nodding , via writing CHRONIC A FIB continue Amio, Diltiazem, Metoprolol, Coumadin INR therapeutic ANEMIA OF CHRONIC DISEASE : hx of GI bleed was found not to be a suitable candidate for EGD for severe respiratory failure requires intermittent PRBC transfusion hb at baseline ~8 follow H&H given underlying cardiac hx pt requires PRBC tx for Hb < 8 DVT prophylaxis on Coumadin INR therapeutic Code Status -discussed with pt able to communicate /awake and alert nods head to full resuscitation -including repeat mechanical ventilation if developed respiratory failure after extubation chest compression /CPR with cardiac arrest Pt will remains as FULL CODE status Disposition was in [facility] prior to admission PT/OT eval once extubated and able to participate Vital Signs: Date Time Temp Pulse Resp B/P Pulse Ox O2 Delivery O2 Flow Rate FiO2 04/26/16 11:00 104 20 153/60 96 04/26/16 10:00 105 20 121/87 96 04/26/16 09:00 99 22 147/82 90 04/26/16 08:55 40 04/26/16 08:18 40 04/26/16 08:00 95 Mechanical Ventilator 40 04/26/16 08:00 100 21 154/92 96 04/26/16 08:00 40 04/26/16 07:44 37.4 101 20 104/62 95 Mechanical Ventilator 04/26/16 06:00 99 19 94 04/26/16 05:58 101 21 118/60 95 04/26/16 05:14 40 04/26/16 05:00 97 19 96 04/26/16 04:44 40 04/26/16 04:44 95 Mechanical Ventilator 40 04/26/16 04:00 93 18 97 04/26/16 03:58 37.7 88 16 104/57 97 04/26/16 03:00 98 20 96 04/26/16 02:03 40 04/26/16 02:00 100 25 94 04/26/16 01:59 94 25 123/80 95 04/26/16 01:00 98 21 97 04/26/16 00:03 36.8 117 20 134/82 94 04/26/16 00:00 122 24 96 04/26/16 00:00 40 04/26/16 00:00 95 Mechanical Ventilator 40 04/25/16 23:11 40 04/25/16 23:00 97 18 95 04/25/16 22:58 96 20 132/67 95 04/25/16 22:00 101 18 93 04/25/16 21:59 102 26 124/63 94 04/25/16 21:31 116 152/86 04/25/16 21:30 132 30 152/86 93 04/25/16 21:00 109 22 93 04/25/16 20:21 40 04/25/16 20:00 36.9 110 20 98 04/25/16 20:00 95 Mechanical Ventilator 40 04/25/16 20:00 40 04/25/16 19:58 108 20 128/65 98 04/25/16 19:00 108 20 99 04/25/16 18:00 40 04/25/16 18:00 120 21 118/86 95 Mechanical Ventilator 40 04/25/16 16:00 37.0 135 21 146/87 94 CPAP 40 04/25/16 16:00 94 Mechanical Ventilator 40 04/25/16 15:10 40 04/25/16 14:00 114 15 124/83 94 CPAP 04/25/16 12:50 40 04/25/16 12:00 40 04/25/16 12:00 37.1 115 20 112/72 98 Mechanical Ventilator 40 04/25/16 12:00 98 Mechanical Ventilator 40 04/25/16 11:38 40 Lab Results: Results Past 24 Hours Test 04/25/16 12:09 04/25/16 15:43 04/25/16 20:23 04/26/16 00:23 Range/Units Bedside Glucose 254 224 246 291 70-90 mg/dl Test 04/26/16 04:21 04/26/16 05:42 04/26/16 08:16 Range/Units Bedside Glucose 306 330 70-90 mg/dl White Blood Count 10.15 4.8-10.8 K/uL Red Blood Count 2.75 4.2-5.4 M/uL Hemoglobin 7.2 12.0-16.0 g/dL Hematocrit 27.5 37-47 % Mean Corpuscular Volume 100.0 80-100 fL Mean Corpuscular Hemoglobin 26.2 25-34 pg Mean Corpuscular Hemoglobin Concent 26.2 32-36 g/dl Platelet Count 116 130-400 K/uL Mean Platelet Volume 9.5 7.4-10.4 fL RDW Standard Deviation 72.9 36.4-46.3 fL RDW Coefficient of Variation 19.8 11.5-14.5 % Nucleated RBC Absolute Count (auto) 0.09 0-0 K/uL Neutrophils % (Manual) 99.1 % Lymphocytes % (Manual) 0.0 % Monocytes % (Manual) 0.9 % Nucleated Red Blood Cells % 0.9 % Neutrophils # (Manual) 10.06 1.4-6.5 K/uL Total Absolute Neutrophils 10.06 1.4-6.5 K/uL Total Absolute Lymphocytes 0.00 1.2-3.4 K/uL Monocytes # (Manual) 0.09 0.11-0.59 K/uL Polychromasia 1+ Basophilic Stippling 1+ Anisocytosis PRESENT Prothrombin Time 16.4 9.0-12.0 SECONDS Prothromb Time International Ratio 1.5 0.9-1.1 Sodium Level 142 136-145 mmol/L Potassium Level 4.0 3.5-5.1 mmol/L Chloride Level 95 98-107 mmol/L Carbon Dioxide Level 43 21-32 mmol/L Anion Gap 6.0 3-11 mmol/L Blood Urea Nitrogen 35 7-18 mg/dl Creatinine 0.66 0.60-1.20 mg/dl Est Creatinine Clear Calc Drug Dose 119.8 ml/min Estimated GFR () 109.7 Estimated GFR (Non- 94.7 BUN/Creatinine Ratio 53.2 10-20 Random Glucose 304 70-99 mg/dl Calcium Level 8.5 8.5-10.1 mg/dl Phosphorus Level 1.5 2.5-4.9 mg/dl Magnesium Level 2.2 1.8-2.4 mg/dl Beta-Hydroxybutyric Acid 3.55 0.2-2.81 mg/dL
[2016-04-26] MEDS: METOPROLOL TARTRATE 25 MG TAB PO SCH ×2 (11:34→23:38)
[2016-04-26] MEDS ORDERED: SODIUM PHOSPHATE INJ 15 MMOL in SODIUM CHLORIDE 0.9% 250ML 250 ML IV SCH (12:00)
[2016-04-26] MEDS: NYSTATIN POWDER 15GM BTL EXT SCH ×2 (13:08→20:15)
--- NOTE | 2016-04-26 13:27 | Pharmacy Progress Note ---
Glycemic: Assessment & Plan Date of Service Apr 26, 2016. Assessment & Plan Item Value Date Time Bedside Glucose 298 mg/dl H 04/26/16 1255 Bedside Glucose 330 mg/dl H 04/26/16 0816 Random Glucose 304 mg/dl H 04/26/16 0542 Bedside Glucose 306 mg/dl H 04/26/16 0421 Bedside Glucose 291 mg/dl H 04/26/16 0023 Bedside Glucose 246 mg/dl H 04/25/16 2023 Bedside Glucose 224 mg/dl H 04/25/16 1543 Bedside Glucose 254 mg/dl H 04/25/16 1209 Bedside Glucose 204 mg/dl H 04/25/16 0533 04/23/16: The patient received 71 units of insulin. 04/24/16: The patient received 39 units of insulin. 04/25/16: The patient received 90 units of insulin. PLAN: BSGs continue to trend up as TF reach goal (55cc/hr). Continues Solu- Medrol 40mg IV every 8 hours. Increased basal insulin and tightened ordered Novolog CF. Also ordered Reg Insulin 5 units IV x 1 @1345. * Basal insulin: Increased Lantus 25 units every 12 hours * Correctional Insulin: Novolog Correction per scale every 4 hours Goal Range: Low 140 mg/dL - High 180 mg/dL "tightened" Correction Factor: 8 mg/dL/unit * Prandial insulin: Continue carb ratio of 1 unit per 4 grams CHO consumed Pharmacy will continue to monitor patient daily and write orders per [facility] inpatient glycemic control protocol. Thanks. * Please note that the plan above was derived based on current level of insulin resistance and hospital stress. These recommendations are appropriate for inpatient admission only. Plan of care upon discharge will need to be reassessed to avoid potential outpatient hypo/hyperglycemia.
[2016-04-26] MEDS ORDERED: INSULIN HUMAN REGULAR PER UNIT 5 UNITS in SYRINGE 4.95 ML IV ONE (13:45)
[2016-04-26] MEDS: WARFARIN SOD 5 MG TAB PO SCH (16:08)
[2016-04-26 16:10] LABS: COD UR NEGATIVE NG/ML (CUTOFF=50); HYDROCOD UR NEGATIVE NG/ML (CUTOFF=50); HYDROMOR UR NEGATIVE NG/ML (CUTOFF=50); HYDROXYETHYLFLURAZEPAM CONF NEGATIVE NG/ML (CUTOFF=50); HYDROXYMIDAZOLAM 1930 NG/ML (CUTOFF=50); HYDROXYTRIAZOLAM CONF NEGATIVE NG/ML (CUTOFF=50); MORPHINE UR NEGATIVE NG/ML (CUTOFF=50); NORHYDROCODONE CONF UR NEGATIVE NG/ML (CUTOFF=50); OXYMORPH UR NEGATIVE NG/ML (CUTOFF=50); TEMAZEPAM CONF NEGATIVE NG/ML (CUTOFF=50)
[2016-04-26 17:02] LABS: BUN/CREATININE RATIO 58.9 (10-20); CALCIUM 8.8 mg/dl (8.5-10.1); CREATININE 0.68 mg/dl (0.60-1.20); POTASSIUM 4.5 mmol/L (3.5-5.1)
[2016-04-26] MEDS ORDERED: FUROSEMIDE INJ 40 MG in SYRINGE 0 ML IV SCH (18:00)
[2016-04-26] MEDS: MONTELUKAST SOD 10 MG TAB PO SCH (20:20)
[2016-04-26] MEDS: METHYLPREDNISOLONE IV 20 MG in SYRINGE 0 ML IV SCH (23:38)
[2016-04-27] VITALS (48 sets, daily range): BP systolic 120–164; BP diastolic 63–106; PULSE 87–118; TEMP 36.5–36.8; O2SAT 87–100
[2016-04-27] MEDS: TUBE FEEDING WATER FLUSH NG SCH ×5 (04:02→20:24)
[2016-04-27] MEDS: INSULIN ASPART 100 UNITS/ML 3 ML PEN SC SCH ×6 (04:07→23:59)
[2016-04-27] MEDS: PIPERACILL/TAZOBAC IV 4.5 GM in DEXTROSE 5% 100ML IV SCH ×3 (05:36→21:32)
[2016-04-27 05:54] LABS: HEMATOCRIT 27.3 % (37-47); MEAN CELL VOLUME 96.5 fL (80-100); MEAN CORPUSCULAR HEMOGLOBIN 26.5 pg (25-34); MEAN CORPUSCULAR HGB CONC 27.5 g/dl (32-36); MEAN PLATELET VOLUME 9.5 fL (7.4-10.4); PLATELET COUNT 103 K/uL (130-400); RED BLOOD COUNT 2.83 M/uL (4.2-5.4); WHITE BLOOD COUNT 7.99 K/uL (4.8-10.8)
--- NOTE | 2016-04-27 06:00 | CRITICAL CARE PROGRESS NOTE ---
DATE: 04/26/2016 There were no acute events overnight. Lela was on CPAP 10/5 for several hours this morning and I was hoping to extubate her from that. Unfortunately, her arterial blood gas showed pH 7.247, pCO2 103, pO2 100 and a bicarbonate of 44.9. Her inspiratory pressure was increased to 15 and this afternoon, she was placed back on assist control. She is not requiring any p.r.n. medications. When she is not sleeping, she is very interactive with staff and her own care. PHYSICAL EXAMINATION: VITAL SIGNS: Maximum temperature 37.7, heart rate 88-105, respiratory rate 15-22, blood pressure 120-150/50s-80s, oxygen saturation 96%-99% on 50% FiO2. 24-hour fluid balance is -7 mL. GENERAL: On exam, she will awaken easily. NEUROLOGIC: Cam assessment is negative and she moves all 4 extremities. LUNGS: Decreased breath sounds throughout with some rhonchi on the right. No wheezes. HEART: Tachycardic, regular. No murmurs. ABDOMEN: Obese, soft, nondistended, nontender. Active bowel sounds. EXTREMITIES: With decreased edema overall. There is less erythema over the bilateral lower extremities as well. LABORATORY DATA: White blood cell count 10.15, hemoglobin 7.2, hematocrit 27.5 and platelets 116. Sodium 143, potassium 4.5, chloride 97, CO2 43, BUN 40, creatinine 0.68, phosphorus 1.5. IMAGING: Portable chest x-ray from today was reviewed. MEDICATIONS AND INFUSIONS: Acetaminophen, amiodarone, Brovana, Pulmicort, calcitonin, calcium with vitamin D, chlorhexidine, Peptamen, fentanyl, Haldol, insulin, Floranex magnesium oxide, Solu-Medrol, Lopressor, Singulair, nystatin, Protonix, Zosyn, potassium, sucralfate, warfarin. IMPRESSION: 1. [id number]-[id number] hypercapnic respiratory failure. I expected her arterial blood gas to be better than it was today. I may need to extubate her from a pressure support of 15 to BiPAP. 2. Hypoglycemia, resolved. 3. Atrial fibrillation with rapid ventricular response, improved with Lopressor. 4. Severe chronic obstructive pulmonary disease. 5. [id number] diastolic dysfunction. 6. Recent gastrointestinal bleed with decreased hemoglobin today. It has been hovering around 7. No signs of active bleeding. 8. History of obstructive sleep apnea and obesity-hypoventilation syndrome. 9. History of left upper lobe squamous cell carcinoma. PLAN: PULMONARY: Continue weaning trials. She is agreeable to extubation to BiPAP, but that certainly does not correct her underlying issues of obesity-hypoventilation syndrome, severe chronic obstructive pulmonary disease and sleep apnea. Decrease Solu-Medrol today and consider changing her to prednisone tomorrow. CARDIOVASCULAR: Consider increasing Lopressor. NEUROLOGIC: Avoid sedatives, if possible. ENDOCRINE: Adjustments in insulin will be made by the pharmacy service. GASTROINTESTINAL: Continue tube feeds and GI prophylaxis. INFECTIOUS DISEASE: Discontinue Zosyn after today. HEMATOLOGIC: I have ordered 1 unit of packed red blood cells. Continue Coumadin. RENAL: I will give her 40 mg of Lasix after her blood. Her was at her bedside today. I updated him in detail. Critical care time, 40 minutes. AKANKSHA
[2016-04-27 06:01] LABS: PROTHROMBIN TIME (PATIENT) 21.7 SECONDS (9.0-12.0)
[2016-04-27 06:22] LABS: BUN/CREATININE RATIO 71.2 (10-20); CALCIUM 8.7 mg/dl (8.5-10.1); CREATININE 0.59 mg/dl (0.60-1.20); PHOSPHORUS 1.8 mg/dl (2.5-4.9)
[2016-04-27 06:30] LABS: ANISOCYTOSIS PRESENT; COMPLETE YES; HYPOCHROMIA PRESENT; IG% 0.5 %; LYMPH % 1.8 %; LYMPH ABS # 0.14 K/uL (1.2-3.4); MONO % 2.3 %; NEUT % 95.4 %; POLYCHROMASIA 1+
[2016-04-27] MEDS: METHYLPREDNISOLONE IV 20 MG in SYRINGE 0 ML IV SCH ×2 (07:59→16:09)
[2016-04-27] MEDS: INCRUSE ELLIPTA~ORDER AWAITING ACTION SCH ×2 (08:00→16:00)
[2016-04-27] MEDS: NYSTATIN POWDER 15GM BTL EXT SCH ×2 (08:01→20:32)
[2016-04-27] MEDS: CALCITONIN SALMON NA 200 IU/AC 3.7 ML BTL SCH (08:01)
[2016-04-27] MEDS: CHLORHEXIDINE GLUCONATE 0.12% 480 ML MT SCH ×2 (08:01→20:32)
[2016-04-27] MEDS: MAGNESIUM OXIDE 400 MG TAB PO SCH ×2 (08:02→20:36)
[2016-04-27] MEDS: AMIODARONE 200 MG TAB PO SCH ×3 (08:03→20:33)
[2016-04-27] MEDS: CALCIUM 600MG + VIT D 400 IU TAB PO SCH ×2 (08:03→20:33)
[2016-04-27] MEDS: PANTOprazole SOD 40 MG TAB PO SCH (08:03)
[2016-04-27] MEDS: SUCRALFATE 1 GM/10 ML UDC PO SCH ×4 (08:03→20:33)
[2016-04-27] MEDS: LACTOBACILLUS ACIDOPHILUS (FLORANEX) TAB PO SCH ×2 (08:04→20:34)
[2016-04-27] MEDS: POTASSIUM CHLORIDE 20 MEQ/15 ML UDC PO SCH ×2 (08:05→20:34)
[2016-04-27] MEDS: INSULIN GLARGINE SOLOSTAR 100 UNITS/ML 3 ML PEN SQ SCH ×2 (08:13→20:38)
[2016-04-27] MEDS: BUDESONIDE 0.5 MG/2 ML VIAL (PULMICORT) INH SCH ×2 (08:22→20:53)
[2016-04-27] MEDS: ARFORMOTEROL TART 15MCG/2ML VIAL INH SCH ×2 (08:22→20:53)
[2016-04-27 08:44] LABS: ISTAT ALLEN TEST Pass; ISTAT ARTERIAL BLOOD GAS HCO3 46 meq/L (19-24); ISTAT ARTERIAL BLOOD GAS PCO2 89 mmHg (35-46); ISTAT ARTERIAL BLOOD GAS PO2 64 mmHg (80-95); ISTAT ARTERIAL BLOOD GAS pH 7.32 (7.35-7.45); ISTAT CARBON DIOXIDE > 40 mEq/l (24-31); ISTAT DELIVERY SYSTEM Ventilator; ISTAT FIO2 60 %; ISTAT PEEP 15; ISTAT SITE L Radial
[2016-04-27] MEDS ORDERED: POTASSIUM PHOS 3 MMOL/1 ML INFUSION IV STA (10:58)
[2016-04-27] MEDS ORDERED: ACETAZOLAMIDE IV PUSH 500 MG in SYRINGE 0 ML IV ONE (11:15)
[2016-04-27] MEDS ORDERED: POTASSIUM PHOSPHATE INJ 15 MMOL in SODIUM CHLORIDE 0.9% 250ML 250 ML IV SCH (11:15)
[2016-04-27] MEDS: METOPROLOL TARTRATE 25 MG TAB PO SCH ×2 (11:48→20:36)
[2016-04-27 14:10] LABS: ISTAT ARTERIAL BLOOD GAS HCO3 48 meq/L (19-24); ISTAT ARTERIAL BLOOD GAS PCO2 87 mmHg (35-46); ISTAT ARTERIAL BLOOD GAS PO2 95 mmHg (80-95); ISTAT ARTERIAL BLOOD GAS pH 7.35 (7.35-7.45); ISTAT CARBON DIOXIDE < 5 mEq/l (24-31); ISTAT HEMATOCRIT 25 % (37-47); ISTAT HEMOGLOBIN 8.5 g/dl (12.0-16.0); ISTAT SODIUM 139 mEq/L (135-144)
[2016-04-27] MEDS ORDERED: INSULIN GLARGINE SOLOSTAR 100 UNITS/ML 3 ML PEN SQ ONE (15:00)
--- NOTE | 2016-04-27 15:05 | Pharmacy Progress Note ---
Glycemic: Assessment & Plan Date of Service Apr 27, 2016. Assessment & Plan Item Value Date Time Bedside Glucose 241 mg/dl H 04/27/16 1159 Bedside Glucose 245 mg/dl H 04/27/16 0809 Random Glucose 250 mg/dl H 04/27/16 0533 Bedside Glucose 260 mg/dl H 04/27/16 0405 Bedside Glucose 288 mg/dl H 04/26/16 2347 Bedside Glucose 244 mg/dl H 04/26/16 1928 Random Glucose 258 mg/dl H 04/26/16 1621 Bedside Glucose 298 mg/dl H 04/26/16 1255 Bedside Glucose 330 mg/dl H 04/26/16 0816 Random Glucose 304 mg/dl H 04/26/16 0542 04/23/16: The patient received 71 units of insulin. 04/24/16: The patient received 39 units of insulin. 04/25/16: The patient received 90 units of insulin. 04/26/16: The patient received 154 units of insulin. PLAN: Continues to wean IV steroids, TF remain @ goal (55cc/hr = 17 grams CHO over 4 hours). Will continue to increased basal insulin. * Basal insulin: Increased Lantus 35 units every 12 hours, started 1/ 1 am (Note: Home dose Lantus is 30 units BID) * Correctional Insulin: Novolog Correction per scale every 4 hours Goal Range: Low 140 mg/dL - High 180 mg/dL Correction Factor: 8 mg/dL/unit * Prandial insulin: Continue carb ratio of 1 unit per 4 grams CHO consumed Pharmacy will continue to monitor patient daily and write orders per [facility] inpatient glycemic control protocol. Thanks. * Please note that the plan above was derived based on current level of insulin resistance and hospital stress. These recommendations are appropriate for inpatient admission only. Plan of care upon discharge will need to be reassessed to avoid potential outpatient hypo/hyperglycemia.
[2016-04-27] MEDS: WARFARIN SOD 5 MG TAB PO SCH (16:10)
[2016-04-27 16:49] LABS: HEMATOCRIT 31.8 % (37-47)
--- NOTE | 2016-04-27 17:11 | Progress Note ---
Internal Med Progress Note Date of Service: Apr 27, 2016. Provider Documentation: SUBJECTIVE: remains on vent unable to extubate yesterday as ABG shows significant respiratory acidosis with Co2 > 90 CPAP trial this AM repeat Gas in afternoon shows improvement pH 7.35 /Co2 87 % , pt will be continued with weaning trial daily appreciate input form Gas Reverser OBJECTIVE: Vital Signs-as noted below Exam: General Appearance: morbidly obese intubated, awake , able to follow command Head: normocephalic, atraumatic Eyes: normal inspection, PERRL, EOMI, sclerae normal ENT: hearing grossly normal, + ET tube in place Neck: no adenopathy, thyroid normal, Respiratory/Chest: + pertinent finding ((+) bilateral crackles, wheezing) Cardiovascular: + irregularly irregular, + pertinent finding (mild lower leg edema, wrapped with dressing) Abdomen/GI: normal bowel sounds, non tender, soft Extremities/Musculoskeletal: + pertinent finding (mild lower leg edema, wrapped with dressing) Neurologic/Psych: + pertinent finding (pupils equal round reactive to light, moves all extremities equally, able to follow commands Lab data as noted below. ASSESSMENT & PLAN: 60 year old female with history of Chronic Respiratory Failure-recurrent admission for the same COPD, Obstructive Sleep Apnea, Obesity Hypoventilation Syndrome, CHF Diastolic Type, presenting with progressive shortness of breath x few days. pt was recently discharged on 04/16/16 -brought to ED with lethargy , changed mental status , hypoxia needed to be intubated in ED as pt was developing progressive respiratory distress , unable to protect airway ACUTE ON CHRONIC RESPIRATORY FAILURE multifactorial likely from Acute Diastolic CHF Exacerbation, COPD Exacerbation, possible Pneumonia-HCAP pt has chronic Hypercarbia due to obesity hypoventilation syndrome has not been complaint with Bipap in past intubated for respiratory failure appreciate input form Critical care given IV Lasix for pulmonary congestion with adequate diuresis on empiric Abx with Zosyn , Vanco D/starr -MRSA screen negative cont ICU monitoring continue CPAP trail - HYPOTENSION resolved BP stable off from pressors /Phenylpehrine, LOW PHOS : cont replacement HYPOGLYCEMIA resolved ; BSG elevated now -possible due to steroids presented with BSG in 30's Pharmacy consulted for glycemic control appreciate input CHANGED MENTAL STATUS /LETHARGY : resolved due to hypercarbia, CO2 retention , respiratory failure /hypoglycemia mental status gradually improved to baseline opening eyes , able to communicate with nodding , via writing CHRONIC A FIB continue Amio, Diltiazem, Metoprolol, Coumadin INR therapeutic ANEMIA OF CHRONIC DISEASE : hx of GI bleed was found not to be a suitable candidate for EGD for severe respiratory failure requires intermittent PRBC transfusion ordered for 1 units of PRBC tx today ( hb 7.5 ) follow H&H DVT prophylaxis on Coumadin INR therapeutic Code Status -discussed with pt able to communicate /awake and alert nods head to full resuscitation -including repeat mechanical ventilation if developed respiratory failure after extubation chest compression /CPR with cardiac arrest Pt will remains as FULL CODE status Disposition was in [facility] prior to admission PT/OT eval once extubated and able to participate Vital Signs: Date Time Temp Pulse Resp B/P Pulse Ox O2 Delivery O2 Flow Rate FiO2 04/27/16 16:58 93 23 127/65 98 04/27/16 16:00 97 17 97 04/27/16 15:59 101 18 130/80 97 04/27/16 15:45 97 Mechanical Ventilator 40 04/27/16 15:45 40 04/27/16 15:31 40 04/27/16 15:14 108 25 136/78 94 04/27/16 15:00 100 16 97 04/27/16 15:00 36.8 95 23 157/91 97 04/27/16 14:59 97 22 147/91 97 04/27/16 14:43 98 24 148/81 97 04/27/16 14:30 36.6 109 22 128/75 97 04/27/16 14:29 96 22 128/75 98 04/27/16 14:25 40 04/27/16 14:14 92 19 135/74 97 04/27/16 14:00 36.7 99 22 132/79 98 04/27/16 14:00 95 18 98 04/27/16 13:59 95 15 132/79 98 04/27/16 13:45 36.6 96 22 141/70 97 04/27/16 13:43 95 12 141/70 97 04/27/16 13:29 94 23 142/66 97 04/27/16 13:27 36.6 100 22 155/75 97 04/27/16 13:00 97 24 98 04/27/16 12:59 103 26 155/75 98 04/27/16 12:09 100 19 124/71 96 04/27/16 12:00 112 23 96 04/27/16 11:59 111 21 150/106 95 04/27/16 11:29 94 Mechanical Ventilator 40 04/27/16 11:29 40 04/27/16 11:04 40 04/27/16 11:00 118 25 96 04/27/16 10:00 106 22 149/78 94 04/27/16 08:35 40 04/27/16 08:22 50 04/27/16 08:00 95 Mechanical Ventilator 40 04/27/16 08:00 36.6 107 20 152/76 95 Mechanical Ventilator 40 04/27/16 08:00 40 04/27/16 06:00 36.7 92 20 96 04/27/16 05:59 91 16 120/63 96 04/27/16 05:23 40 04/27/16 05:09 97 16 131/64 96 04/27/16 05:00 102 18 95 04/27/16 04:20 98 Mechanical Ventilator 50 04/27/16 04:20 50 04/27/16 04:00 96 22 95 04/27/16 03:58 105 22 132/79 96 04/27/16 03:00 99 22 97 04/27/16 02:59 102 22 125/68 96 04/27/16 02:18 110 20 164/74 87 04/27/16 02:00 100 21 95 04/27/16 01:58 40 04/27/16 01:00 103 21 96 04/27/16 00:14 97 22 162/83 92 04/27/16 00:05 50 04/27/16 00:05 98 Mechanical Ventilator 50 04/27/16 00:00 36.5 111 25 163/86 100 04/26/16 23:44 107 22 124/79 93 04/26/16 23:29 108 26 135/74 95 04/26/16 23:14 101 27 147/86 96 04/26/16 23:13 40 04/26/16 23:00 100 10 98 04/26/16 22:59 97 11 137/72 99 04/26/16 22:44 93 16 119/72 98 04/26/16 22:29 101 22 154/80 100 04/26/16 22:14 101 21 124/70 99 04/26/16 22:00 97 20 99 04/26/16 21:44 100 20 149/74 99 04/26/16 21:29 106 28 150/74 98 04/26/16 21:14 105 24 156/79 99 04/26/16 21:00 103 22 98 04/26/16 20:59 111 17 158/78 98 04/26/16 20:44 102 17 138/74 99 04/26/16 20:29 100 23 160/71 99 04/26/16 20:13 99 22 151/98 98 04/26/16 20:00 98 Mechanical Ventilator 50 04/26/16 20:00 36.6 101 20 151/81 98 04/26/16 20:00 50 04/26/16 19:59 98 25 155/101 98 04/26/16 19:46 50 04/26/16 19:44 103 22 176/89 98 04/26/16 19:36 36.6 93 25 138/82 98 04/26/16 19:29 88 22 138/82 99 04/26/16 19:14 85 0 122/71 99 04/26/16 19:00 95 2 100 04/26/16 18:15 36.9 93 18 133/65 99 04/26/16 17:50 36.9 94 20 164/75 98 04/26/16 17:50 36.9 94 20 164/75 98 04/26/16 17:35 37.2 94 18 162/81 99 04/26/16 17:30 40 04/26/16 17:19 36.9 100 20 168/85 100 04/26/16 17:19 37.2 105 16 167/73 100 Lab Results: Results Past 24 Hours Test 04/26/16 19:28 04/26/16 23:47 04/27/16 04:05 04/27/16 05:33 Range/Units Bedside Glucose 244 288 260 70-90 mg/dl White Blood Count 7.99 4.8-10.8 K/uL Red Blood Count 2.83 4.2-5.4 M/uL Hemoglobin 7.5 12.0-16.0 g/dL Hematocrit 27.3 37-47 % Mean Corpuscular Volume 96.5 80-100 fL Mean Corpuscular Hemoglobin 26.5 25-34 pg Mean Corpuscular Hemoglobin Concent 27.5 32-36 g/dl Platelet Count 103 130-400 K/uL Mean Platelet Volume 9.5 7.4-10.4 fL Neutrophils (%) (Auto) 95.4 % Lymphocytes (%) (Auto) 1.8 % Monocytes (%) (Auto) 2.3 % Eosinophils (%) (Auto) 0.0 % Basophils (%) (Auto) 0.0 % Neutrophils # (Auto) 7.63 1.4-6.5 K/uL Lymphocytes # (Auto) 0.14 1.2-3.4 K/uL Monocytes # (Auto) 0.18 0.11-0.59 K/uL Eosinophils # (Auto) 0.00 0-0.5 K/uL Basophils # (Auto) 0.00 0-0.2 K/uL RDW Standard Deviation 71.0 36.4-46.3 fL RDW Coefficient of Variation 20.0 11.5-14.5 % Immature Granulocyte % (Auto) 0.5 % Immature Granulocyte # (Auto) 0.04 0.00-0.02 K/uL Nucleated RBC Absolute Count (auto) 0.04 0-0 K/uL Nucleated Red Blood Cells % 0.4 % Polychromasia 1+ Hypochromasia PRESENT Anisocytosis PRESENT Prothrombin Time 21.7 9.0-12.0 SECONDS Prothromb Time International Ratio 2.0 0.9-1.1 Sodium Level 143 136-145 mmol/L Potassium Level 4.0 3.5-5.1 mmol/L Chloride Level 96 98-107 mmol/L Carbon Dioxide Level 44 21-32 mmol/L Anion Gap 3.0 3-11 mmol/L Blood Urea Nitrogen 42 7-18 mg/dl Creatinine 0.59 0.60-1.20 mg/dl Est Creatinine Clear Calc Drug Dose 134.0 ml/min Estimated GFR () 113.9 Estimated GFR (Non- 98.2 BUN/Creatinine Ratio 71.2 10-20 Random Glucose 250 70-99 mg/dl Calcium Level 8.7 8.5-10.1 mg/dl Phosphorus Level 1.8 2.5-4.9 mg/dl Magnesium Level 2.0 1.8-2.4 mg/dl Test 04/27/16 08:09 04/27/16 08:31 04/27/16 11:59 04/27/16 13:57 Range/Units Bedside Glucose 245 241 70-90 mg/dl Blood Gas Sample Site L Radial Bedside Blood Gas pH (LAB) 7.32 7.35 7.35-7.45 Bedside Blood Gas pCO2 (LAB) 89 87 35-46 mmHg Bedside Blood Gas pO2 (LAB) 64 95 80-95 mmHg Bedside Blood Gas HCO3 (LAB) 46 48 19-24 meq/L Bedside Blood Gas Total CO2 > 40 < 5 24-31 mEq/l Bedside Blood Gas Base Excess (LAB) 20.0 22.0 -9-1.8 meq/L Bedside Blood Gas O2 Saturation 89.0 96.0 90-95 % Pablo Test Pass Oxygen Delivery Device Ventilator Bedside FiO2 60 % Blood Gas PEEP 15 Bedside Hemoglobin 8.5 12.0-16.0 g/dl Bedside Hematocrit 25 37-47 % Bedside Sodium 139 135-144 mEq/L Bedside Potassium 3.9 3.3-5.0 mEq/L Test 04/27/16 16:09 04/27/16 16:22 Range/Units Bedside Glucose 248 70-90 mg/dl Hemoglobin 8.9 12.0-16.0 g/dL Hematocrit 31.8 37-47 %
--- NOTE | 2016-04-27 18:55 | CRITICAL CARE PROGRESS NOTE ---
DATE: 04/27/2016 SUBJECTIVE: There were no acute events overnight. This is ventilator day 5 for this unfortunate 60-year-old woman with a history of severe chronic obstructive pulmonary disease and multiple admissions to the hospital over the past 6 months to 1 year. She was found unresponsive at her skilled facility and was hypoglycemic. She was intubated and has remained on the ventilator since that time. She is known to be noncompliant with her BiPAP when she is in and out of the hospital. She tolerated CPAP 10/5 yesterday but her pCO2 was in the 80s. She was put back on a rate and arterial blood gas this morning does show respiratory acidosis, although it is compensated. Her respiratory rate was increased on the ventilator today and I also gave her some acetazolamide. She has no specific complaints and in fact she ignored me a little bit today. She was asking her nurse for Holly[employer]. Her daughter thinks it was [employer] coffee she wanted not the food. She denies pain and did not have a bowel movement yesterday. She is tolerating her tube feeds at goal. PHYSICAL EXAMINATION: VITAL SIGNS: Maximum temperature 36.7, heart rate 92-105, respiratory rate 17-25, blood pressure 120-160/60s-80s, oxygen saturation 96% on 50% FIO2. Ventilator settings are assist control rate 22, tidal volume 500, FiO2 50%, and PEEP 8. NEUROLOGIC: She will awaken and follow commands. Her CAM assessment is negative. LUNGS: Very decreased breath sounds throughout. No wheezes, rales or rhonchi. HEART: Very distant, regular rate and rhythm. ABDOMEN: Morbidly obese, soft, nondistended, nontender, active bowel sounds. EXTREMITIES: Warm with 2-3+ pedal edema and 2+ pretibial edema. SCDs are in place. SKIN: The erythema on her legs from just below the knee distally is improved. LABORATORY DATA: White blood cell count 7.99, hemoglobin 7.5, hematocrit 27.3, platelets 103; follow up hemoglobin status post 1 unit packed red blood cells 8.9 and 31.8. Sodium 143, potassium 4, chloride 96, CO2 44, BUN 42, creatinine 0.59, and phosphorus 1.8. INR 2.0. MEDICATIONS: Acetaminophen, amiodarone, Brovana, budesonide, Fortical nasal spray, calcium, chlorhexidine, Peptamen, fentanyl, Haldol, insulin sliding scale, Lantus, Floranex, magnesium oxide, Solu-Medrol, Lopressor, Singulair, Protonix, Zosyn day 4, potassium, tube feeding water flush, sucralfate, Coumadin. IMPRESSION: 1. Acute on chronic hypercapnic respiratory failure, multifactorial. She has diastolic dysfunction and severe chronic obstructive pulmonary disease. 2. Hypoglycemia, resolved. 3. Severe chronic obstructive pulmonary disease with possible acute exacerbation. 4. Atrial fibrillation with rapid ventricular response, improved. 5. Acute on chronic diastolic dysfunction. 6. Recent gastrointestinal bleed and anemia status post 2 units packed red blood cells this admission. No signs of gastrointestinal bleed to this point. 7. History of obstructive sleep apnea and obesity hypoventilation syndrome. 8. History of left upper lobe squamous cell carcinoma. PLAN: PULMONARY: I increased her respiratory rate on the ventilator today. I would like to blow off more of her carbon dioxide and I have also given her some Diamox. Her BiPAP settings as an outpatient are 16/9. I considered extubating her to BIPAP yesterday, but she was quite hypercapnic on the CPAP. Continue bronchodilators and Solu-Medrol. Continue weaning trials. CARDIOVASCULAR: I have increased her Lopressor to 37.5 mg b.i.d. today. NEUROLOGICAL: She has some p.r.n. medications for agitation if needed, but she has not required much. ENDOCRINE: She is hyperglycemic. The pharmacy has been adjusting her insulin. I suggested an insulin infusion and will discuss that with them. GASTROINTESTINAL: Continue to watch for any signs of GI bleeding and to continue tube feeds for now. She is on GI prophylaxis. INFECTIOUS DISEASE: Continue Zosyn for a total of 5 days. At this point, there is no evidence of any infection. HEMATOLOGICAL: She had 1 additional unit of packed red blood cells, total 2 for her admission today. Continue Coumadin. RENAL: Continue to attempt diuresis. Please call me with any questions or concerns. Critical care time 40 minutes. MTDD
[2016-04-27] MEDS: MONTELUKAST SOD 10 MG TAB PO SCH (20:37)
[2016-04-28] VITALS (44 sets, daily range): BP systolic 122–192; BP diastolic 61–107; PULSE 83–110; TEMP 36.6–36.7; O2SAT 91–100
[2016-04-28] MEDS: METHYLPREDNISOLONE IV 20 MG in SYRINGE 0 ML IV SCH ×3 (00:01→20:25)
[2016-04-28] MEDS: TUBE FEEDING WATER FLUSH NG SCH ×7 (00:01→23:44)
[2016-04-28] MEDS: INSULIN ASPART 100 UNITS/ML 3 ML PEN SC SCH ×5 (04:04→20:00)
[2016-04-28 05:24] LABS: HEMATOCRIT 31.4 % (37-47); MEAN CELL VOLUME 95.7 fL (80-100); MEAN CORPUSCULAR HEMOGLOBIN 26.8 pg (25-34); MEAN PLATELET VOLUME 9.4 fL (7.4-10.4); PLATELET COUNT 108 K/uL (130-400); RED BLOOD COUNT 3.28 M/uL (4.2-5.4); WHITE BLOOD COUNT 8.47 K/uL (4.8-10.8)
[2016-04-28 05:32] LABS: INR 3.3 (0.9-1.1); PROTHROMBIN TIME (PATIENT) 37.5 SECONDS (9.0-12.0)
[2016-04-28 05:49] LABS: ANISOCYTOSIS PRESENT; COMPLETE YES; HYPOCHROMIA PRESENT; IG% 0.6 %; LYMPH % 2.2 %; LYMPH ABS # 0.19 K/uL (1.2-3.4); NEUT % 95.2 %; STOMATOCYTE 1+
[2016-04-28 06:12] LABS: BUN/CREATININE RATIO 76.8 (10-20); CALCIUM 8.7 mg/dl (8.5-10.1); CREATININE 0.51 mg/dl (0.60-1.20); PHOSPHORUS 2.1 mg/dl (2.5-4.9); POTASSIUM 4.2 mmol/L (3.5-5.1)
[2016-04-28 06:33] LABS: MAGNESIUM 1.9 mg/dl (1.8-2.4)
[2016-04-28] MEDS: ARFORMOTEROL TART 15MCG/2ML VIAL INH SCH ×2 (07:30→19:48)
[2016-04-28] MEDS: BUDESONIDE 0.5 MG/2 ML VIAL (PULMICORT) INH SCH ×2 (07:30→19:48)
--- NOTE | 2016-04-28 07:31 | DIAGNOSTIC IMAGING REPORT ---
CHEST ONE VIEW PORTABLE HISTORY: respiratory failure COMPARISON: Chest 04/26/2016. FINDINGS: The endotracheal tube, bilateral jugular central venous catheters, nasogastric tube remain unchanged in position. These demonstrate satisfactory placement. No pneumothorax. Improved aeration within the lung bases. The heart remains enlarged. Diffuse interstitial thickening persists. Metallic fiducial markers in left upper lobe nodularity persists. IMPRESSION: 1. Improved aeration within the lung bases. 2. Otherwise, no significant change compared to the prior study. 3. Satisfactory support line placement. Electronically signed by: Glen Magana M.D. 04/28/2016 7:29 AM
[2016-04-28] MEDS: INCRUSE ELLIPTA~ORDER AWAITING ACTION SCH ×4 (07:54→23:44)
[2016-04-28] MEDS: CALCITONIN SALMON NA 200 IU/AC 3.7 ML BTL SCH (07:55)
[2016-04-28] MEDS: CHLORHEXIDINE GLUCONATE 0.12% 480 ML MT SCH ×2 (07:55→20:13)
[2016-04-28] MEDS: NYSTATIN POWDER 15GM BTL EXT SCH ×2 (07:55→20:24)
[2016-04-28] MEDS: PANTOprazole SOD 40 MG TAB PO SCH (07:55)
[2016-04-28] MEDS: LACTOBACILLUS ACIDOPHILUS (FLORANEX) TAB PO SCH ×2 (07:56→20:14)
[2016-04-28] MEDS: METOPROLOL TARTRATE 25 MG TAB PO SCH ×2 (07:57→20:14)
[2016-04-28] MEDS: SUCRALFATE 1 GM/10 ML UDC PO SCH ×4 (07:58→20:13)
[2016-04-28] MEDS: CALCIUM 600MG + VIT D 400 IU TAB PO SCH ×2 (07:58→20:13)
[2016-04-28] MEDS: POTASSIUM CHLORIDE 20 MEQ/15 ML UDC PO SCH ×2 (07:58→20:14)
[2016-04-28] MEDS: MAGNESIUM OXIDE 400 MG TAB PO SCH ×2 (07:59→20:14)
[2016-04-28] MEDS: AMIODARONE 200 MG TAB PO SCH ×3 (07:59→20:13)
[2016-04-28] MEDS: INSULIN GLARGINE SOLOSTAR 100 UNITS/ML 3 ML PEN SQ SCH ×2 (08:01→20:27)
--- NOTE | 2016-04-28 15:50 | Pharmacy Progress Note ---
Glycemic Control: Progress Nt Date of Service Apr 28, 2016. Scope Glycemic Pharmacist consulted by Dr Mahajan on 04/23/16 for glycemic control and to write orders per [facility] inpatient glycemic control protocol. Objective Accuchecks BSG (last 24hrs): Test 04/27/16 16:09 04/27/16 20:26 04/27/16 23:56 04/28/16 04:00 Bedside Glucose 248 mg/dl (70-90) 221 mg/dl (70-90) 237 mg/dl (70-90) 228 mg/dl (70-90) Test 04/28/16 05:11 04/28/16 08:14 04/28/16 11:48 Random Glucose 241 mg/dl (70-99) Bedside Glucose 250 mg/dl (70-90) 193 mg/dl (70-90) Laboratory Data (last 24hrs) Test 04/28/16 05:11 Anion Gap 2.0 mmol/L BUN/Creatinine Ratio 76.8 Blood Urea Nitrogen 39 mg/dl Creatinine 0.51 mg/dl Potassium Level 4.2 mmol/L Sodium Level 146 mmol/L White Blood Count 8.47 K/uL Red Blood Count 3.28 M/uL Hemoglobin 8.8 g/dL Hematocrit 31.4 % Mean Corpuscular Volume 95.7 fL Mean Corpuscular Hemoglobin 26.8 pg Mean Corpuscular Hemoglobin Concent 28.0 g/dl Platelet Count 108 K/uL Mean Platelet Volume 9.4 fL Neutrophils (%) (Auto) 95.2 % Lymphocytes (%) (Auto) 2.2 % Monocytes (%) (Auto) 2.0 % Eosinophils (%) (Auto) 0.0 % Basophils (%) (Auto) 0.0 % Neutrophils # (Auto) 8.06 K/uL Lymphocytes # (Auto) 0.19 K/uL Monocytes # (Auto) 0.17 K/uL Eosinophils # (Auto) 0.00 K/uL Basophils # (Auto) 0.00 K/uL HbA1c: 5.8% 04/10/16 Recent Pertinent Medications Outpatient Anti-diabetic Regimen: * Lantus 30 units BID * Novolog 22 units w/ breakfast + 18 units w/ lunch + 22 units w/ dinner + 10 units at bedtime * Sitagliptin 50mg PO Q AM * A1c = 5.8 % 04/10/16 The patient is currently receiving: * Basal insulin: Lantus 35 units every 12 hours * Correctional Insulin: Novolog Correction per scale Q 4 hours Goal Range: Low 140 mg/dL - High 180 mg/dL Correction Factor: 8 mg/dL/unit * Prandial insulin: Per carb ratio of 1 unit per 4 grams CHO consumed * Oral Agents: None currently Risk Factors for Insulin Resistance: * Steroids: Solu-medrol 20mg IV Q 8 hours ---> changed to Q 12 hours * Infection: receiving Zosyn x 5 days * Diet: was receiving Peptamen @55cc/hr ---> turned off for extubation this AM; will remain off; swallow eval ordered before a diet can begin * Mechanical Ventilation: extubated late morning Assessment & Plan ASSESSMENT: 04/28/16 * Patient is likely to become more insulin sensitive over the next 24 hours: extubated, continuous tube feeds stopped, and steroid dose reduced * BSGs were elevated above goal over the last 24 hrs; most BSGs in the low-mid 200's * I anticipated glycemic control to improve in the near future * She may be at risk for hypoglycemia if Lantus dose is titrated too high and PO intake poor. Will reduce Lantus dose to outpt dose and add "half-dose" parameter as a precaution * Given possibility of changing insulin sensitivity over next 24 hours, will continue Q 4 hr BSGs with Novolog coverage --- and will convert to ACHS checks/ coverage tomorrow if glycemic control improved PLAN FOR INPATIENT GLYCEMIC CONTROL: * Decreasing Lantus to 30 units SQ BID - give 1/2 dose if BSG less than 120 * Continuing correction factor of 8 mg/dl/unit * Continuing carb ratio of 1 unit per 4 grams CHO consumed * Continuing goal range of Low 140 mg/dL - High 180 mg/dL * Reassess insulin dose with each change in steroid dose RECOMMENDATIONS FOR DISCHARGE: * * Please note that the plan above was derived based on current level of insulin resistance and hospital stress. These recommendations are appropriate for inpatient admission only. Plan of care upon discharge will need to be reassessed to avoid potential outpatient hypo/hyperglycemia. Thank you.
[2016-04-28] MEDS: MONTELUKAST SOD 10 MG TAB PO SCH (20:15)
--- NOTE | 2016-04-28 20:55 | Progress Note ---
Internal Med Progress Note Date of Service: Apr 28, 2016. Provider Documentation: SUBJECTIVE: extubated earlier to day , transitioned to Bipap continues to communicate by writing tolerating Bipap well OBJECTIVE: Vital Signs-as noted below Exam: General Appearance: morbidly obese , on Bipap Head: normocephalic, atraumatic Eyes: normal inspection, PERRL, EOMI, sclerae normal Neck: no adenopathy, thyroid normal, Respiratory/Chest: Diminished Cardiovascular: + regular Abdomen/GI: normal bowel sounds, non tender, soft Extremities/Musculoskeletal: + 1 -2 bilat pitting edema Neurologic/Psych: +no focal neurological deficit Lab data as noted below. ASSESSMENT & PLAN: 60 year old female with history of Chronic Respiratory Failure-recurrent admission for the same COPD, Obstructive Sleep Apnea, Obesity Hypoventilation Syndrome, CHF Diastolic Type, presenting with progressive shortness of breath x few days. pt was recently discharged on 04/16/16 -brought to ED with lethargy , changed mental status , hypoxia needed to be intubated in ED as pt was developing progressive respiratory distress , unable to protect airway ACUTE ON CHRONIC RESPIRATORY FAILURE multifactorial likely from Acute Diastolic CHF Exacerbation, COPD Exacerbation, possible Pneumonia-HCAP completed empiric abx with Zosyn pt has chronic Hypercarbia due to obesity hypoventilation syndrome has not been complaint with Bipap in past intubated for respiratory failure appreciate input form Critical care Extubated today with transition to Bipap HYPOTENSION resolved BP stable LOW PHOS : cont replacement HYPOGLYCEMIA resolved ; BSG elevated now -possible due to steroids presented with BSG in 30's Pharmacy following for glycemic control appreciate input CHANGED MENTAL STATUS /LETHARGY : resolved due to hypercarbia, CO2 retention , respiratory failure /hypoglycemia mental status improved to baseline CHRONIC A FIB continue Amio, Diltiazem, Metoprolol, Coumadin INR elevated > 3 Coumadin on hold ANEMIA OF CHRONIC DISEASE : hx of GI bleed was found not to be a suitable candidate for EGD for severe respiratory failure requires intermittent PRBC transfusion s/p 1 unit of PRBC tx Hb stable post transfusion ~8 follow H&H DVT prophylaxis INR ELEVATED Code Status -discussed with pt able to communicate /awake and alert want resuscitation -including repeat mechanical ventilation if developed respiratory failure after extubation chest compression /CPR with cardiac arrest Pt will remains as FULL CODE status Disposition was in [facility] prior to admission PT/OT eval requested Vital Signs: Date Time Temp Pulse Resp B/P Pulse Ox O2 Delivery O2 Flow Rate FiO2 04/28/16 22:00 96 19 154/94 97 BiPAP 04/28/16 21:08 112 183/121 04/28/16 20:01 36.7 109 18 160/74 100 BiPAP 04/28/16 20:00 95 BiPAP 40 04/28/16 19:49 107 95 40 04/28/16 19:48 107 21 95 BiPAP/CPAP 40 04/28/16 18:00 100 98 40 04/28/16 17:59 104 20 122/107 97 04/28/16 17:05 97 25 95 BiPAP/CPAP 40 04/28/16 17:00 110 21 95 04/28/16 16:59 103 21 164/84 94 04/28/16 16:00 106 23 96 04/28/16 16:00 94 BiPAP 40 04/28/16 15:59 36.7 102 21 154/100 96 04/28/16 15:00 106 24 93 04/28/16 14:59 108 25 192/90 94 04/28/16 14:00 100 22 93 04/28/16 13:58 102 34 155/83 92 04/28/16 13:00 101 23 93 04/28/16 12:58 105 21 160/84 92 04/28/16 12:00 104 22 92 04/28/16 11:58 36.7 108 24 151/85 92 04/28/16 11:40 98 91 40 04/28/16 11:30 40 04/28/16 11:25 40 04/28/16 11:25 96 Mechanical Ventilator 40 04/28/16 11:00 98 21 96 04/28/16 10:58 96 19 148/82 96 04/28/16 10:00 97 19 96 04/28/16 09:00 94 17 97 04/28/16 08:59 94 19 147/75 97 04/28/16 08:45 40 04/28/16 08:34 36.6 91 24 144/82 97 Mechanical Ventilator 40 04/28/16 08:00 96 22 98 04/28/16 08:00 40 04/28/16 08:00 97 Mechanical Ventilator 40 04/28/16 07:30 40 04/28/16 07:00 94 19 98 04/28/16 06:00 88 22 99 04/28/16 05:58 86 22 133/67 98 04/28/16 05:33 40 04/28/16 05:00 91 22 98 04/28/16 04:18 36.6 04/28/16 04:11 98 Mechanical Ventilator 40 04/28/16 04:11 40 04/28/16 04:00 94 22 98 04/28/16 03:59 90 22 124/73 98 04/28/16 03:00 83 22 99 04/28/16 02:21 40 04/28/16 02:00 92 22 98 04/28/16 01:59 86 22 127/61 98 04/28/16 01:00 94 22 98 04/28/16 00:05 98 Mechanical Ventilator 40 04/28/16 00:05 40 04/28/16 00:00 36.7 92 19 137/83 98 04/27/16 23:37 40 Lab Results: Results Past 24 Hours Test 04/27/16 23:56 04/28/16 01:37 04/28/16 04:00 04/28/16 05:11 Range/Units Bedside Glucose 237 228 70-90 mg/dl Urine Random Phosphorus 23.6 mg/dl White Blood Count 8.47 4.8-10.8 K/uL Red Blood Count 3.28 4.2-5.4 M/uL Hemoglobin 8.8 12.0-16.0 g/dL Hematocrit 31.4 37-47 % Mean Corpuscular Volume 95.7 80-100 fL Mean Corpuscular Hemoglobin 26.8 25-34 pg Mean Corpuscular Hemoglobin Concent 28.0 32-36 g/dl Platelet Count 108 130-400 K/uL Mean Platelet Volume 9.4 7.4-10.4 fL Neutrophils (%) (Auto) 95.2 % Lymphocytes (%) (Auto) 2.2 % Monocytes (%) (Auto) 2.0 % Eosinophils (%) (Auto) 0.0 % Basophils (%) (Auto) 0.0 % Neutrophils # (Auto) 8.06 1.4-6.5 K/uL Lymphocytes # (Auto) 0.19 1.2-3.4 K/uL Monocytes # (Auto) 0.17 0.11-0.59 K/uL Eosinophils # (Auto) 0.00 0-0.5 K/uL Basophils # (Auto) 0.00 0-0.2 K/uL RDW Standard Deviation 67.0 36.4-46.3 fL RDW Coefficient of Variation 18.9 11.5-14.5 % Immature Granulocyte % (Auto) 0.6 % Immature Granulocyte # (Auto) 0.05 0.00-0.02 K/uL Nucleated RBC Absolute Count (auto) 0.03 0-0 K/uL Nucleated Red Blood Cells % 0.3 % Hypochromasia PRESENT Anisocytosis PRESENT Stomatocytes 1+ Prothrombin Time 37.5 9.0-12.0 SECONDS Prothromb Time International Ratio 3.3 0.9-1.1 Sodium Level 146 136-145 mmol/L Potassium Level 4.2 3.5-5.1 mmol/L Chloride Level 100 98-107 mmol/L Carbon Dioxide Level 44 21-32 mmol/L Anion Gap 2.0 3-11 mmol/L Blood Urea Nitrogen 39 7-18 mg/dl Creatinine 0.51 0.60-1.20 mg/dl Est Creatinine Clear Calc Drug Dose 154.5 ml/min Estimated GFR () 119.4 Estimated GFR (Non- 103.1 BUN/Creatinine Ratio 76.8 10-20 Random Glucose 241 70-99 mg/dl Calcium Level 8.7 8.5-10.1 mg/dl Phosphorus Level 2.1 2.5-4.9 mg/dl Magnesium Level 1.9 1.8-2.4 mg/dl Test 04/28/16 08:14 04/28/16 11:48 04/28/16 18:02 04/28/16 20:20 Range/Units Bedside Glucose 250 193 163 138 70-90 mg/dl
[2016-04-28] MEDS: METOPROLOL TARTRATE 1 MG/ML VIAL IV PRN (21:08)
--- NOTE | 2016-04-28 21:12 | Critical Care Progress Note ---
Critical Care Progress Note Date of Service Apr 28, 2016. Attending Dr. Sarah Subjective Patient intubated, not sedated, tolerating the vent well alert following commands requesting primary hospitalist physician to be present during extubation. Objective NEUROLOGIC: She will awaken and follow commands. Her CAM assessment is negative. LUNGS: Very decreased breath sounds throughout. No wheezes, rales or rhonchi. HEART: Very distant, regular rate and rhythm. ABDOMEN: Morbidly obese, soft, nondistended, nontender, active bowel sounds. EXTREMITIES: Warm with 2-3+ pedal edema and 2+ pretibial edema. SCDs are in place. SKIN: The erythema on her legs from just below the knee distally is improved. Assessment & Plan IMPRESSION: 1. Acute on chronic hypercapnic respiratory failure, multifactorial. She has diastolic dysfunction and severe chronic obstructive pulmonary disease. 2. Hypoglycemia, resolved. 3. Severe chronic obstructive pulmonary disease with possible acute exacerbation. 4. Atrial fibrillation with rapid ventricular response, improved. 5. Acute on chronic diastolic dysfunction. 6. Recent gastrointestinal bleed and anemia status post 2 units packed red blood cells this admission. No signs of gastrointestinal bleed to this point. 7. History of obstructive sleep apnea and obesity hypoventilation syndrome. 8. History of left upper lobe squamous cell carcinoma. PLAN: PULMONARY: Extubated BiPAP today, did not tolerate extensive. Off BiPAP, continue aggressive pulmonary toilet. If requires reintubation would strongly consider tracheostomy CARDIOVASCULAR: Rate mildly increased today. Would consider increasing beta [place] tomorrow if still tachycardic NEUROLOGICAL: She has some p.r.n. medications for agitation if needed, but she has not required much. ENDOCRINE: She is hyperglycemic. The pharmacy has been adjusting her insulin. I suggested an insulin infusion and will discuss that with them. GASTROINTESTINAL: Continue to watch for any signs of GI bleeding and to continue tube feeds for now. She is on GI prophylaxis. INFECTIOUS DISEASE: Continue Zosyn for a total of 5 days. At this point, there is no evidence of any infection. HEMATOLOGICAL: She had 1 additional unit of packed red blood cells, total 2 for her admission today. Continue Coumadin. RENAL: Keep globally negative today I have personally spent 45 minutes of critical care time in the direct management of this patient. This is a life/limb threatening event. This includes time spent evaluating patient, direct bedside care, chart review, placing orders, interpretation of diagnostic studies, discussion with consultants, patient, and family members, as well as other required patient management activities. This time is exclusive of all separately billable procedures, and teaching time and separate from and in addition to any other critical care service time. Data Medications: Current Inpatient Medications Medications (Trade) Dose Ordered Sig/Tez Route Start Time Stop Time Status Last Admin Dose Admin Glucose (Glucose 40% Gel) 15-30 GRAMS 15 GRAMS... UD PRN PO 04/22/16 22:45 05/22/16 22:44 Glucose (Glucose Chew Tab) 4-8 Tablets 4 Tabl... UD PRN PO 04/22/16 22:45 05/22/16 22:44 Dextrose (Dextrose 50% 50ML Syringe) 25-50ML OF 50% DW IV FOR... UD PRN IV 04/22/16 22:45 05/22/16 22:44 Glucagon (Glucagon Inj) 1 mg UD PRN SQ 04/22/16 22:45 05/22/16 22:44 Miscellaneous Information (Consult Glycemic Management Pharmacy) 1 ea DAILY PRN N/A 04/23/16 00:12 05/23/16 00:11 Amiodarone HCl (Cordarone Tab) 200 mg TID PO 04/23/16 09:00 05/23/16 08:59 04/28/16 07:59 200 MG Arformoterol Tartrate (Brovana 15MCG/ 2ML Neb Soln) 30 mcg Q12R INH 04/23/16 08:00 05/23/16 07:59 04/28/16 19:48 30 MCG Budesonide (Pulmicort Respules 0.5MG/ 2ML Neb Soln) 0.5 mg Q12R INH 04/23/16 08:00 05/23/16 07:59 04/28/16 19:48 0.5 MG Calcitonin [place] (Fortical Nasal [place]) 1 spray DAILY NA 04/23/16 09:00 05/23/16 08:59 04/28/16 07:55 1 SPRAY Lactobacillus Acidophilus (Floranex Tab) 4 tab BID PO 04/23/16 09:00 05/23/16 08:59 04/28/16 07:56 4 TAB Magnesium Oxide (Mag-Ox Tab) 400 mg BID PO 04/23/16 09:00 05/23/16 08:59 04/28/16 07:59 400 MG Montelukast Sodium (Singulair Tab) 10 mg QPM PO 04/23/16 21:00 05/23/16 20:59 04/27/16 20:37 10 MG Sucralfate (Carafate Susp) 1 gm QID PO 04/23/16 09:00 05/23/16 08:59 04/28/16 07:58 1 GM Calcium/Vitamin D (Caltrate Plus Tab) 1 tab BID PO 04/23/16 09:00 05/23/16 08:59 04/28/16 07:58 1 TAB Nystatin (Mycostatin Powder) 1 appln BID EXT 04/23/16 09:00 05/23/16 08:59 04/28/16 20:24 1 APPLN Miscellaneous Information (Order Awaiting Action) 1 ea QS N/A 04/23/16 08:00 05/23/16 07:59 Chlorhexidine Gluconate (Peridex Oral Soln) 15 ml BID MT 04/23/16 10:00 05/23/16 09:59 04/28/16 20:13 15 ML Enteral Nutritional Formula 1000 ml 1,000 ml UD GT 04/24/16 10:45 05/24/16 10:44 04/25/16 17:25 1,000 ML Acetaminophen/ Empty Bag (Ofirmev IV/ Empty Iv Bag 100ml) 65 ml @ 260 mls/hr Q6H PRN IV 04/24/16 12:15 05/24/16 12:14 04/24/16 14:11 260 MLS/HR Fentanyl Citrate (Fentanyl Inj) 50 mcg Q2H PRN IV 04/24/16 14:30 05/08/16 14:29 Haloperidol Lactate (Haldol Inj) 5 mg Q8H PRN IV 04/24/16 14:30 05/24/16 14:29 Warfarin Sodium (Coumadin Tab) 5 mg DAILY@16 PO 04/25/16 16:00 05/25/16 15:59 Future Hold 04/27/16 16:10 5 MG Insulin Aspart (novoLOG ASPART) SLIDING SCALE Q4 SC 04/25/16 12:00 05/25/16 11:59 04/28/16 11:52 2 UNITS Pantoprazole Sodium (Protonix Tab) 40 mg QAM PO 04/26/16 09:00 05/26/16 08:59 04/28/16 07:55 40 MG Sterile Water (Tube Feeding Water Flush) 1 ea Q4 NG 04/25/16 20:00 05/25/16 19:59 04/28/16 07:54 1 EA Potassium Chloride (Maricruz Ciel Elix) 20 meq BID PO 04/25/16 21:00 05/25/16 20:59 04/28/16 07:58 20 MEQ Metoprolol Tartrate (Lopressor Iv) 5 mg Q6H PRN IV 04/25/16 21:00 05/25/16 20:59 Metoprolol Tartrate 37.5 mg 37.5 mg Q12 PO 04/27/16 12:00 05/27/16 11:59 04/28/16 07:57 37.5 MG Methylprednisolone Sodium Succinate/ Syringe (Solu-Medrol IV/ Syringe) 0.32 ml @ 1.5 mls/min Q12 IV 04/28/16 21:00 05/28/16 20:59 04/28/16 20:25 1.5 MLS/MIN Insulin Glargine (Lantus Solostar Pen) 30 unit BID SQ 04/28/16 21:00 05/28/16 20:59 04/28/16 20:27 30 UNIT I & O: 24-Hour Column 04/28/16 08:00 Intake Total 2750 ml Output Total 2375 ml Balance 375 ml Vital Signs: Date Time Temp Pulse Resp B/P Pulse Ox O2 Delivery O2 Flow Rate FiO2 04/28/16 19:49 107 95 40 04/28/16 19:48 107 21 95 BiPAP/CPAP 40 04/28/16 18:00 100 98 40 04/28/16 17:59 104 20 122/107 97 04/28/16 17:05 97 25 95 BiPAP/CPAP 40 04/28/16 17:00 110 21 95 04/28/16 16:59 103 21 164/84 94 04/28/16 16:00 106 23 96 04/28/16 16:00 94 BiPAP 40 04/28/16 15:59 36.7 102 21 154/100 96 04/28/16 15:00 106 24 93 04/28/16 14:59 108 25 192/90 94 04/28/16 14:00 100 22 93 04/28/16 13:58 102 34 155/83 92 04/28/16 13:00 101 23 93 04/28/16 12:58 105 21 160/84 92 04/28/16 12:00 104 22 92 04/28/16 11:58 36.7 108 24 151/85 92 04/28/16 11:40 98 91 40 04/28/16 11:30 40 04/28/16 11:25 40 04/28/16 11:25 96 Mechanical Ventilator 40 04/28/16 11:00 98 21 96 04/28/16 10:58 96 19 148/82 96 04/28/16 10:00 97 19 96 04/28/16 09:00 94 17 97 04/28/16 08:59 94 19 147/75 97 04/28/16 08:45 40 04/28/16 08:34 36.6 91 24 144/82 97 Mechanical Ventilator 40 04/28/16 08:00 96 22 98 04/28/16 08:00 40 04/28/16 08:00 97 Mechanical Ventilator 40 04/28/16 07:30 40 04/28/16 07:00 94 19 98 04/28/16 06:00 88 22 99 04/28/16 05:58 86 22 133/67 98 04/28/16 05:33 40 04/28/16 05:00 91 22 98 04/28/16 04:18 36.6 04/28/16 04:11 98 Mechanical Ventilator 40 04/28/16 04:11 40 04/28/16 04:00 94 22 98 04/28/16 03:59 90 22 124/73 98 04/28/16 03:00 83 22 99 04/28/16 02:21 40 04/28/16 02:00 92 22 98 04/28/16 01:59 86 22 127/61 98 04/28/16 01:00 94 22 98 04/28/16 00:05 98 Mechanical Ventilator 40 04/28/16 00:05 40 04/28/16 00:00 36.7 92 19 137/83 98 04/27/16 23:37 40 04/27/16 23:00 98 16 99 04/27/16 22:58 93 25 148/65 99 04/27/16 22:17 97 22 132/83 96 Laboratory Results: Last 24 Hours Test 04/27/16 23:56 04/28/16 01:37 04/28/16 04:00 04/28/16 05:11 Bedside Glucose 237 mg/dl 228 mg/dl Urine Random Phosphorus 23.6 mg/dl White Blood Count 8.47 K/uL Red Blood Count 3.28 M/uL Hemoglobin 8.8 g/dL Hematocrit 31.4 % Mean Corpuscular Volume 95.7 fL Mean Corpuscular Hemoglobin 26.8 pg Mean Corpuscular Hemoglobin Concent 28.0 g/dl Platelet Count 108 K/uL Mean Platelet Volume 9.4 fL Neutrophils (%) (Auto) 95.2 % Lymphocytes (%) (Auto) 2.2 % Monocytes (%) (Auto) 2.0 % Eosinophils (%) (Auto) 0.0 % Basophils (%) (Auto) 0.0 % Neutrophils # (Auto) 8.06 K/uL Lymphocytes # (Auto) 0.19 K/uL Monocytes # (Auto) 0.17 K/uL Eosinophils # (Auto) 0.00 K/uL Basophils # (Auto) 0.00 K/uL RDW Standard Deviation 67.0 fL RDW Coefficient of Variation 18.9 % Immature Granulocyte % (Auto) 0.6 % Immature Granulocyte # (Auto) 0.05 K/uL Nucleated RBC Absolute Count (auto) 0.03 K/uL Nucleated Red Blood Cells % 0.3 % Hypochromasia PRESENT Anisocytosis PRESENT Stomatocytes 1+ Prothrombin Time 37.5 SECONDS Prothromb Time International Ratio 3.3 Sodium Level 146 mmol/L Potassium Level 4.2 mmol/L Chloride Level 100 mmol/L Carbon Dioxide Level 44 mmol/L Anion Gap 2.0 mmol/L Blood Urea Nitrogen 39 mg/dl Creatinine 0.51 mg/dl Est Creatinine Clear Calc Drug Dose 154.5 ml/min Estimated GFR () 119.4 Estimated GFR (Non- 103.1 BUN/Creatinine Ratio 76.8 Random Glucose 241 mg/dl Calcium Level 8.7 mg/dl Phosphorus Level 2.1 mg/dl Magnesium Level 1.9 mg/dl Test 04/28/16 08:14 04/28/16 11:48 04/28/16 18:02 04/28/16 20:20 Bedside Glucose 250 mg/dl 193 mg/dl 163 mg/dl 138 mg/dl
[2016-04-29] VITALS (22 sets, daily range): BP systolic 129–175; BP diastolic 69–95; PULSE 88–113; TEMP 36.5–36.6; O2SAT 94–100
[2016-04-29] MEDS ORDERED: LEVALBUTEROL/IPRATROPIUM NEB INH STA (00:34)
[2016-04-29] MEDS ORDERED: LEVALBUTEROL/IPRATROPIUM NEB INH PRN (00:45)
[2016-04-29] MEDS: IPRATROPIUM BROMIDE NEB SOLN 0.02% 2.5 ML VIAL INH SCH ×6 (01:07→23:10)
[2016-04-29] MEDS: LEVALBUTEROL 1.25MG/0.5ML NEB INH SCH ×6 (01:07→23:10)
[2016-04-29 01:08] LABS: IPAP 16; ISTAT ALLEN TEST Pass; ISTAT ARTERIAL BLOOD GAS HCO3 47 meq/L (19-24); ISTAT ARTERIAL BLOOD GAS PCO2 95 mmHg (35-46); ISTAT ARTERIAL BLOOD GAS PO2 78 mmHg (80-95); ISTAT CARBON DIOXIDE > 40 mEq/l (24-31); ISTAT DELIVERY SYSTEM BIPAP; ISTAT FIO2 40 %; ISTAT RATE 14; ISTAT SITE R Radial
[2016-04-29 02:36] LABS: IPAP 20; ISTAT ALLEN TEST Pass; ISTAT ARTERIAL BLOOD GAS HCO3 47 meq/L (19-24); ISTAT ARTERIAL BLOOD GAS PCO2 85 mmHg (35-46); ISTAT ARTERIAL BLOOD GAS PO2 90 mmHg (80-95); ISTAT ARTERIAL BLOOD GAS pH 7.35 (7.35-7.45); ISTAT CARBON DIOXIDE > 40 mEq/l (24-31); ISTAT DELIVERY SYSTEM BIPAP; ISTAT FIO2 40 %; ISTAT RATE 20; ISTAT SITE R Radial
[2016-04-29] MEDS ORDERED: LEVALBUTEROL/IPRATROPIUM NEB INH SCH (03:00)
[2016-04-29] MEDS: TUBE FEEDING WATER FLUSH NG SCH ×2 (03:10→07:36)
[2016-04-29] MEDS: INSULIN ASPART 100 UNITS/ML 3 ML PEN SC SCH ×5 (03:52→17:26)
[2016-04-29 06:16] LABS: HEMATOCRIT 32.6 % (37-47); MEAN CELL VOLUME 99.1 fL (80-100); MEAN CORPUSCULAR HEMOGLOBIN 27.1 pg (25-34); MEAN CORPUSCULAR HGB CONC 27.3 g/dl (32-36); MEAN PLATELET VOLUME 9.8 fL (7.4-10.4); PLATELET COUNT 139 K/uL (130-400); RED BLOOD COUNT 3.29 M/uL (4.2-5.4); WHITE BLOOD COUNT 7.23 K/uL (4.8-10.8)
[2016-04-29 06:25] LABS: INR 3.6 (0.9-1.1)
--- NOTE | 2016-04-29 06:31 | DIAGNOSTIC IMAGING REPORT ---
CHEST ONE VIEW PORTABLE CLINICAL HISTORY: sob COMPARISON STUDY: -17 FINDINGS: The endotracheal tube is been removed. There are bilateral internal jugular central venous catheters. The heart remains enlarged. There is a left suprahilar nodule with adjacent fiducial markers. There are bilateral interstitial pulmonary opacities similar to the preceding study.[ IMPRESSION: 1. Interval removal of the endotracheal tube 2. Persistent bilateral interstitial pulmonary opacities Electronically signed by: Silvestre Neely M.D. 04/29/2016 6:30 AM
[2016-04-29 06:45] LABS: BLOOD UREA NITROGEN 39 mg/dl (7-18); BUN/CREATININE RATIO 100.3 (10-20); CALCIUM 8.9 mg/dl (8.5-10.1); CHLORIDE 101 mmol/L (98-107); CREATININE 0.39 mg/dl (0.60-1.20); GLUCOSE 126 mg/dl (70-99); POTASSIUM 4.4 mmol/L (3.5-5.1); SODIUM 150 mmol/L (136-145)
[2016-04-29 06:52] LABS: PHOSPHORUS 2.9 mg/dl (2.5-4.9)
[2016-04-29 06:59] LABS: ANISOCYTOSIS PRESENT; BASO % 0.1 %; BASO ABS # 0.01 K/uL (0-0.2); COMPLETE YES; HYPOCHROMIA PRESENT; IG% 0.6 %; LYMPH % 3.3 %; LYMPH ABS # 0.24 K/uL (1.2-3.4); POLYCHROMASIA 1+; STOMATOCYTE 1+
[2016-04-29 07:14] LABS: CARBON DIOXIDE 48 mmol/L (21-32)
[2016-04-29] MEDS: ARFORMOTEROL TART 15MCG/2ML VIAL INH SCH ×2 (07:17→18:59)
[2016-04-29] MEDS: BUDESONIDE 0.5 MG/2 ML VIAL (PULMICORT) INH SCH ×2 (07:17→19:00)
[2016-04-29] MEDS: INCRUSE ELLIPTA~ORDER AWAITING ACTION SCH ×2 (07:36→16:00)
[2016-04-29] MEDS: METHYLPREDNISOLONE IV 20 MG in SYRINGE 0 ML IV SCH ×2 (08:04→21:25)
[2016-04-29] MEDS: NYSTATIN POWDER 15GM BTL EXT SCH ×2 (08:05→21:24)
[2016-04-29] MEDS: CHLORHEXIDINE GLUCONATE 0.12% 480 ML MT SCH ×2 (08:05→21:24)
[2016-04-29] MEDS: CALCITONIN SALMON NA 200 IU/AC 3.7 ML BTL SCH (08:05)
[2016-04-29] MEDS: INSULIN GLARGINE SOLOSTAR 100 UNITS/ML 3 ML PEN SQ SCH ×2 (09:00→21:30)
--- NOTE | 2016-04-29 10:43 | Critical Care Progress Note ---
Critical Care Progress Note Date of Service Apr 29, 2016. Attending Dr. Sarah Subjective Mrs. Fitzpatrick has made great strides over the last couple of days after being extubated yesterday Am to BiPap, today she on my examination she is on nasal cannula at 3L with Saturations >95%. Pt continues to be short of breath but feels that her respiratory status is improving. She still has her chronic productive cough with clear colored sputum. She did state that holding a conversation with me made her a little short of breath. OT was in to work with Lela this morning. She states she did well with being sat up and having her feet off the bed. She is not sure if PT has been in to see her though. She is in good spirits today. I did address the possibility of future need for tracheostomy due to repeated episodes of respiratory failure, to which she said she would be willing to consider. Her was present in the room and I was able to address in questions about this procedure as well. Ms. Vogel states she wants her resuscitation status to remain unchanged at this time. Today she denies any pain, fever, chills, malaise, dizziness. She states she has some episodes of chest pressure and episodes of palpitation type feelings, but denies overt chest pain. She denied abd pain, nausea, or vomiting, She states her last BM was yesterday without issue. She has a crowe to gravity in place and she denies and burning or irritation from it. She denied numbness or tingling. Objective General: NAD HOSPITAL STAFF PHARMACIST/Neuro: AAOx 3, PERRL, No Focal Signs Sedation Not Applicable /Pain control: PO Tylenol available upon request, pt denies pain. Respiratory: Breath sounds are significantly decreased throughout secondary to body habitus, Crackles noted at left base; without rhonchi, or wheezes, No paradoxical chest wall movement noted Supplemental O2; 3 L on Nasal Cannula; Saturations >95% Extubated: 04/28/16 CXR: : I have independently reviewed the report as well as the images dated * FINDINGS: The endotracheal tube is been removed. There are bilateral internal jugular central venous catheters. The heart remains enlarged. There is a left suprahilar nodule with adjacent fiducial markers. There are bilateral interstitial pulmonary opacities similar to the preceding study.[ * IMPRESSION: * 1. Interval removal of the endotracheal tube * 2. Persistent bilateral interstitial pulmonary opacities HOB up 30 degrees: Yes Chlorhexidine: Yes Cardiovascular: Sinus Tach Heart rate: 110, No rubs, murmurs, gallops, or clicks appreciated SBP 175 CV drips: N/A EKG: No recent EKG, Last EKG dated 04/22/16 with A. Fib with premature ventricular or aberrantly conducted complexes. Nonspecific ST and T wave abnormalities ECHO: None this admission Fluids/Renal: 0.045 at 100ml/hr; Currently 2.7 L positive Crowe to gravity in place Cr 0.39; BUN 39 GI/Nutrition: Obese abd, Normal active BS, Tympanic to percussion, Soft, NT, ND, without organomegaly Pureed DM2 Diet starting with dinner today Feeding: stopped with extubation 04/28/16 Prophylaxis:Protonix 40mg PO BID in place Endocrine: Last 24 hour glucose: 245 to 126(now) Insulin being managed by pharmacy with Novolog SSI and Lantus 30U BID TSH 0.353 on 03/09/16 Hematology: H&H 8.9/32.6; plt 139 Coags: PT 41, INR 3.6 Received 2u PRBCs this admission; 1u(04/26/16) and 1u(04/27/16) DVT prophylaxis: * SCDs in place * Coumadin held for INR > 3.5 Type and screen: Completed for previous transfusions this admission Extremities/Skin/MSK: Erythema below knee noted, 3+ pedal edema, SCDs are in place.Moves all extremities, in SCDs Infectious Disease: Tmax: 38.3 Afebrile since 04/26 WBC 7.23. Lactic Acid: No recent value CVL (04/19): in place no erythema or drainage noted Antimicrobials: * Currently no antimicrobials in place * Rcv'd Vanco 2800 (04/23; 1 Bag), Levoquin 750mg (04/22; total of 9 bags), and Zosyn 4.5 (04/23-04/27) this admission Cultures: Blood: No Growth Urine: No growth C. difficile toxin:N/A MRSA screen: Negative Access: Chronic Right Jugular Port a Cath Left IJ triple lumen catheter Assessment & Plan Reason Critically Ill: Patient is an 60-year-old female who is transferred to the ICU for repeat respiratory failure requiring endotracheal intubation. PLAN: Electrolytes: Hypernatremia * Na 150; K 4.4; Cl 101; Ca 8.9; Phos 2.9; Mg 2.0 * Will give 0.45NS @ 100ml/hr * Will not give D5W for Hypernatremia due to recent hyperglycemia * Repeat PRP @ 1400 today Endocine: DM2 * Accu-Checks per protocol, started insulin infusion for 2 blood sugars greater than 180 * Continue current regimen * Lantus 30U BID * Novolog SSI * Pharmacy on board for management Resp: Acute on chronic hypercapnic respiratory failure, multifactorial * Extubated to BiPap on 04/28/16, now on room air * BiPap to remain at bedside if needed, use at night * Supplemental oxygen as required Severe chronic obstructive pulmonary disease * Continue Methylprednisolone 20mg IV q12 today * Taper every 3 days (taper down tomorrow) * Continue Pulmicort Nebulizer 0.5mg q12hrs * Continue to monitor on telemetry Other Resp: * History of obstructive sleep apnea and obesity hypoventilation syndrome. * History of left upper lobe squamous cell carcinoma. CV: Atrial Fibrillation with RVR * Improved today * Coumadin to be held if INR >3.5 * Hx of Acute on chronic diastolic dysfunction. * Continue Lopressor 37.5mg PO q12 * PRN HR >110 additional 5mg PO q6hrs * Restart Amiodarone with Diet tonight * 200mg PO TID GI/Nutrition: GI Bleed * Recent gastrointestinal bleed and anemia status post 2 units packed red blood cells this admission. * Continue Protonix 40 PO qAM despite extubation * No overt signs of bleeding presently * Restart diet tonight (pureed DM2 Diet) Heme: Anemia * As above in GI Bleed * Trend H&H daily : * Continue hydration as above * Crowe to gravity * Follow Daily PRP * Avoid renally toxic medications Neuro: * Pt denies pain * Tylenol for pain control when necessary ID: * Afebrile, WBC WNL; no sign of infection * Remove crowe when possible CCT: 35 Minutes; This time is exclusive of all separately billable procedures. Thank you for involving us in the care of this patient. Please refer to Dr. Sarah's addendum for further recommendations. I have personally evaluated and examined this patient. I agree with assessment and plan of Meka De La Cruz PA-C. Patient has continued to use BiPAP. She is slowly improving and having increasing BiPAP free periods. Her slowly continuing to replete her free water, patient is stable for downgraded to telemetry status. Data Medications: Current Inpatient Medications Medications (Trade) Dose Ordered Sig/Tez Route Start Time Stop Time Status Last Admin Dose Admin Glucose (Glucose 40% Gel) 15-30 GRAMS 15 GRAMS... UD PRN PO 04/22/16 22:45 05/22/16 22:44 Glucose (Glucose Chew Tab) 4-8 Tablets 4 Tabl... UD PRN PO 04/22/16 22:45 05/22/16 22:44 Dextrose (Dextrose 50% 50ML Syringe) 25-50ML OF 50% DW IV FOR... UD PRN IV 04/22/16 22:45 05/22/16 22:44 Glucagon (Glucagon Inj) 1 mg UD PRN SQ 04/22/16 22:45 05/22/16 22:44 Miscellaneous Information (Consult Glycemic Management Pharmacy) 1 ea DAILY PRN N/A 04/23/16 00:12 05/23/16 00:11 Amiodarone HCl (Cordarone Tab) 200 mg TID PO 04/23/16 09:00 05/23/16 08:59 04/28/16 07:59 200 MG Arformoterol Tartrate ([place] 15MCG/ 2ML Neb Soln) 30 mcg Q12R INH 04/23/16 08:00 05/23/16 07:59 04/29/16 07:17 30 MCG Budesonide (Pulmicort Respules 0.5MG/ 2ML Neb Soln) 0.5 mg Q12R INH 04/23/16 08:00 05/23/16 07:59 04/29/16 07:17 0.5 MG Calcitonin [place] (Fortical Nasal [place]) 1 spray DAILY NA 04/23/16 09:00 05/23/16 08:59 04/29/16 08:05 1 SPRAY Lactobacillus Acidophilus (Floranex Tab) 4 tab BID PO 04/23/16 09:00 05/23/16 08:59 04/28/16 07:56 4 TAB Magnesium Oxide (Mag-Ox Tab) 400 mg BID PO 04/23/16 09:00 1/27/17 08:59 04/28/16 07:59 400 MG Montelukast Sodium (Singulair Tab) 10 mg QPM PO 04/23/16 21:00 05/23/16 20:59 04/27/16 20:37 10 MG Sucralfate (Carafate Susp) 1 gm QID PO 04/23/16 09:00 05/23/16 08:59 04/28/16 07:58 1 GM Calcium/Vitamin D (Caltrate Plus Tab) 1 tab BID PO 04/23/16 09:00 05/23/16 08:59 04/28/16 07:58 1 TAB Nystatin (Mycostatin Powder) 1 appln BID EXT 04/23/16 09:00 05/23/16 08:59 04/29/16 08:05 1 APPLN Miscellaneous Information (Order Awaiting Action) 1 ea QS N/A 04/23/16 08:00 05/23/16 07:59 Chlorhexidine Gluconate (Peridex Oral Soln) 15 ml BID MT 04/23/16 10:00 05/23/16 09:59 04/29/16 08:05 15 ML Enteral Nutritional Formula 1000 ml 1,000 ml UD GT 04/24/16 10:45 05/24/16 10:44 04/25/16 17:25 1,000 ML Acetaminophen/ Empty Bag (Ofirmev IV/ Empty Iv Bag 100ml) 65 ml @ 260 mls/hr Q6H PRN IV 04/24/16 12:15 05/24/16 12:14 04/24/16 14:11 260 MLS/HR Fentanyl Citrate (Fentanyl Inj) 50 mcg Q2H PRN IV 04/24/16 14:30 05/08/16 14:29 Haloperidol Lactate (Haldol Inj) 5 mg Q8H PRN IV 04/24/16 14:30 05/24/16 14:29 Warfarin Sodium (Coumadin Tab) 5 mg DAILY@16 PO 04/25/16 16:00 05/25/16 15:59 Future Hold 04/27/16 16:10 5 MG Pantoprazole Sodium (Protonix Tab) 40 mg QAM PO 04/26/16 09:00 05/26/16 08:59 04/28/16 07:55 40 MG Sterile Water (Tube Feeding Water Flush) 1 ea Q4 NG 04/25/16 20:00 05/25/16 19:59 04/28/16 07:54 1 EA Potassium Chloride (Maricruz Ciel Elix) 20 meq BID PO 04/25/16 21:00 05/25/16 20:59 04/28/16 07:58 20 MEQ Metoprolol Tartrate (Lopressor Iv) 5 mg Q6H PRN IV 04/25/16 21:00 05/25/16 20:59 04/28/16 21:08 5 MG Metoprolol Tartrate 37.5 mg 37.5 mg Q12 PO 04/27/16 12:00 05/27/16 11:59 04/28/16 07:57 37.5 MG Methylprednisolone Sodium Succinate/ Syringe (Solu-Medrol IV/ Syringe) 0.32 ml @ 1.5 mls/min Q12 IV 04/28/16 21:00 05/28/16 20:59 04/29/16 08:04 1.5 MLS/MIN Insulin Glargine (Lantus Solostar Pen) 30 unit BID SQ 04/28/16 21:00 05/28/16 20:59 04/28/16 20:27 30 UNIT Ipratropium [place] (Atrovent 0.02% 0.5MG/2.5ML Neb) 0.5 mg Q6R INH 04/29/16 01:30 05/29/16 01:29 04/29/16 01:07 0.5 MG Levalbuterol (Xopenex 1.25MG/ 0.5ML Neb) 1.25 mg Q6R INH 04/29/16 01:30 05/29/16 01:29 04/29/16 01:07 1.25 MG Insulin Aspart (novoLOG ASPART) SLIDING SCALE Q6 SC 04/29/16 08:00 05/29/16 07:59 I & O: 24-Hour Column 04/29/16 08:00 Intake Total 412 ml Output Total 1650 ml Balance -1238 ml Vital Signs: Date Time Temp Pulse Resp B/P Pulse Ox O2 Delivery O2 Flow Rate FiO2 04/29/16 10:00 110 21 162/91 96 BiPAP 40 04/29/16 08:00 36.5 101 21 144/74 100 BiPAP 40 04/29/16 08:00 100 BiPAP 40 04/29/16 07:17 99 100 40 04/29/16 07:17 99 21 100 BiPAP/CPAP 40 04/29/16 06:00 110 20 142/69 97 BiPAP 40 04/29/16 04:00 99 BiPAP 40 04/29/16 04:00 36.5 101 14 142/70 98 BiPAP 04/29/16 03:55 101 100 40 04/29/16 02:00 108 18 142/73 100 BiPAP 40 04/29/16 01:09 102 100 40 04/29/16 01:07 102 20 100 BiPAP/CPAP 40 04/29/16 00:00 36.5 96 21 129/91 97 BiPAP 40 04/28/16 23:59 100 BiPAP 40 04/28/16 22:00 96 19 154/94 97 BiPAP 04/28/16 21:08 112 183/121 04/28/16 20:01 36.7 109 18 160/74 100 BiPAP 04/28/16 20:00 95 BiPAP 40 04/28/16 19:49 107 95 40 04/28/16 19:48 107 21 95 BiPAP/CPAP 40 04/28/16 18:00 100 98 40 04/28/16 17:59 104 20 122/107 97 04/28/16 17:05 97 25 95 BiPAP/CPAP 40 04/28/16 17:00 110 21 95 04/28/16 16:59 103 21 164/84 94 04/28/16 16:00 106 23 96 04/28/16 16:00 94 BiPAP 40 04/28/16 15:59 36.7 102 21 154/100 96 04/28/16 15:00 106 24 93 04/28/16 14:59 108 25 192/90 94 04/28/16 14:00 100 22 93 04/28/16 13:58 102 34 155/83 92 04/28/16 13:00 101 23 93 04/28/16 12:58 105 21 160/84 92 04/28/16 12:00 104 22 92 04/28/16 11:58 36.7 108 24 151/85 92 04/28/16 11:40 98 91 40 04/28/16 11:30 40 04/28/16 11:25 40 04/28/16 11:25 96 Mechanical Ventilator 40 04/28/16 11:00 98 21 96 04/28/16 10:58 96 19 148/82 96 Laboratory Results: Last 24 Hours Test 04/28/16 11:48 04/28/16 18:02 04/28/16 20:20 04/28/16 23:51 Bedside Glucose 193 mg/dl 163 mg/dl 138 mg/dl 126 mg/dl Test 04/29/16 00:55 04/29/16 02:23 04/29/16 03:32 04/29/16 05:22 Blood Gas Sample Site R Radial R Radial Bedside Blood Gas pH (LAB) 7.30 7.35 Bedside Blood Gas pCO2 (LAB) 95 mmHg 85 mmHg Bedside Blood Gas pO2 (LAB) 78 mmHg 90 mmHg Bedside Blood Gas HCO3 (LAB) 47 meq/L 47 meq/L Bedside Blood Gas Total CO2 > 40 mEq/l > 40 mEq/l Bedside Blood Gas Base Excess (LAB) 21.0 meq/L 21.0 meq/L Bedside Blood Gas O2 Saturation 93.0 % 96.0 % Pablo Test Pass Pass Oxygen Delivery Device BIPAP BIPAP Bedside Oxygen Rate (breaths/min) 14 20 Bedside FiO2 40 % 40 % Blood Gas IPAP 16 20 Bedside Glucose 120 mg/dl White Blood Count 7.23 K/uL Red Blood Count 3.29 M/uL Hemoglobin 8.9 g/dL Hematocrit 32.6 % Mean Corpuscular Volume 99.1 fL Mean Corpuscular Hemoglobin 27.1 pg Mean Corpuscular Hemoglobin Concent 27.3 g/dl Platelet Count 139 K/uL Mean Platelet Volume 9.8 fL Neutrophils (%) (Auto) 95.0 % Lymphocytes (%) (Auto) 3.3 % Monocytes (%) (Auto) 1.0 % Eosinophils (%) (Auto) 0.0 % Basophils (%) (Auto) 0.1 % Neutrophils # (Auto) 6.87 K/uL Lymphocytes # (Auto) 0.24 K/uL Monocytes # (Auto) 0.07 K/uL Eosinophils # (Auto) 0.00 K/uL Basophils # (Auto) 0.01 K/uL RDW Standard Deviation 69.6 fL RDW Coefficient of Variation 19.1 % Immature Granulocyte % (Auto) 0.6 % Immature Granulocyte # (Auto) 0.04 K/uL Nucleated RBC Absolute Count (auto) 0.02 K/uL Nucleated Red Blood Cells % 0.3 % Polychromasia 1+ Hypochromasia PRESENT Basophilic Stippling 2+ Anisocytosis PRESENT Stomatocytes 1+ Prothrombin Time 41.0 SECONDS Prothromb Time International Ratio 3.6 Sodium Level 150 mmol/L Potassium Level 4.4 mmol/L Chloride Level 101 mmol/L Carbon Dioxide Level 48 mmol/L Anion Gap mmol/L Blood Urea Nitrogen 39 mg/dl Creatinine 0.39 mg/dl Est Creatinine Clear Calc Drug Dose 200.2 ml/min Estimated GFR () 130.5 Estimated GFR (Non- 112.6 BUN/Creatinine Ratio 100.3 Random Glucose 126 mg/dl Calcium Level 8.9 mg/dl Phosphorus Level 2.9 mg/dl Magnesium Level 2.0 mg/dl Test 04/29/16 08:10 Bedside Glucose 114 mg/dl
[2016-04-29] MEDS ORDERED: ACETAMINOPHEN SOLN 650MG/20.3 ML UDC PO PRN (11:15)
[2016-04-29] MEDS: SODIUM CHLORIDE 0.45% 1000ML 1,000 ML IV SCH ×2 (11:19→21:25)
[2016-04-29] MEDS: METOPROLOL TARTRATE 1 MG/ML VIAL IV PRN (11:25)
[2016-04-29] MEDS: PANTOprazole SOD 40 MG TAB PO SCH (11:58)
[2016-04-29] MEDS: CALCIUM 600MG + VIT D 400 IU TAB PO SCH ×2 (11:58→21:26)
[2016-04-29] MEDS: AMIODARONE 200 MG TAB PO SCH ×3 (11:59→21:28)
[2016-04-29] MEDS: MAGNESIUM OXIDE 400 MG TAB PO SCH ×2 (11:59→21:28)
[2016-04-29] MEDS: SUCRALFATE 1 GM/10 ML UDC PO SCH ×4 (12:00→21:26)
[2016-04-29] MEDS: LACTOBACILLUS ACIDOPHILUS (FLORANEX) TAB PO SCH ×2 (12:00→21:27)
[2016-04-29] MEDS: METOPROLOL TARTRATE 25 MG TAB PO SCH ×2 (12:01→21:27)
[2016-04-29] MEDS: POTASSIUM CHLORIDE 20 MEQ/15 ML UDC PO SCH ×2 (12:01→21:26)
--- NOTE | 2016-04-29 13:02 | Progress Note ---
Medicine Progress Note Date & Time of Visit: Apr 29, 2016 at 12:56. Subjective patient seen resting in bed, now on nasal cannula states her breathing is ok still has occasional productive cough no chest pain denies abdominal pain ,nausea, leg pain no other symptoms Objective Last 8 Hrs Date Time Temp Pulse Resp B/P Pulse Ox O2 Delivery O2 Flow Rate FiO2 04/29/16 12:00 97 Nasal Cannula 3.0 04/29/16 12:00 104 22 99 04/29/16 11:59 36.5 103 23 175/95 99 Nasal Cannula 3.0 04/29/16 11:00 112 19 96 04/29/16 10:59 104 21 161/90 95 04/29/16 10:00 107 23 98 04/29/16 10:00 110 21 162/91 96 BiPAP 40 04/29/16 08:00 36.5 101 21 144/74 100 BiPAP 40 04/29/16 08:00 100 BiPAP 40 04/29/16 07:17 99 100 40 04/29/16 07:17 99 21 100 BiPAP/CPAP 40 04/29/16 06:00 110 20 142/69 97 BiPAP 40 Physical Exam: General- oriented x 3, speaks in sentences with mild effort and mild accessory muscle use Head- atraumatic Eyes- EOMI, anicteric Neck- supple, no JVD Lungs- diminished but clear bilaterally Heart- mild tachycardia; no murmurs Abdomen- normal bowel sounds, soft, nontender Extremities- grade 1-2 lower leg edema, no calf tenderness Neuro- alert, oriented x 3; no gross focal deficits Skin- warm & dry Laboratory Results: Last 24 Hours Test 04/28/16 18:02 04/28/16 20:20 04/28/16 23:51 04/29/16 00:55 Bedside Glucose 163 mg/dl 138 mg/dl 126 mg/dl Blood Gas Sample Site R Radial Bedside Blood Gas pH (LAB) 7.30 Bedside Blood Gas pCO2 (LAB) 95 mmHg Bedside Blood Gas pO2 (LAB) 78 mmHg Bedside Blood Gas HCO3 (LAB) 47 meq/L Bedside Blood Gas Total CO2 > 40 mEq/l Bedside Blood Gas Base Excess (LAB) 21.0 meq/L Bedside Blood Gas O2 Saturation 93.0 % Pablo Test Pass Oxygen Delivery Device BIPAP Bedside Oxygen Rate (breaths/min) 14 Bedside FiO2 40 % Blood Gas IPAP 16 Test 04/29/16 02:23 04/29/16 03:32 04/29/16 05:22 04/29/16 08:10 Blood Gas Sample Site R Radial Bedside Blood Gas pH (LAB) 7.35 Bedside Blood Gas pCO2 (LAB) 85 mmHg Bedside Blood Gas pO2 (LAB) 90 mmHg Bedside Blood Gas HCO3 (LAB) 47 meq/L Bedside Blood Gas Total CO2 > 40 mEq/l Bedside Blood Gas Base Excess (LAB) 21.0 meq/L Bedside Blood Gas O2 Saturation 96.0 % Pablo Test Pass Oxygen Delivery Device BIPAP Bedside Oxygen Rate (breaths/min) 20 Bedside FiO2 40 % Blood Gas IPAP 20 Bedside Glucose 120 mg/dl 114 mg/dl White Blood Count 7.23 K/uL Red Blood Count 3.29 M/uL Hemoglobin 8.9 g/dL Hematocrit 32.6 % Mean Corpuscular Volume 99.1 fL Mean Corpuscular Hemoglobin 27.1 pg Mean Corpuscular Hemoglobin Concent 27.3 g/dl Platelet Count 139 K/uL Mean Platelet Volume 9.8 fL Neutrophils (%) (Auto) 95.0 % Lymphocytes (%) (Auto) 3.3 % Monocytes (%) (Auto) 1.0 % Eosinophils (%) (Auto) 0.0 % Basophils (%) (Auto) 0.1 % Neutrophils # (Auto) 6.87 K/uL Lymphocytes # (Auto) 0.24 K/uL Monocytes # (Auto) 0.07 K/uL Eosinophils # (Auto) 0.00 K/uL Basophils # (Auto) 0.01 K/uL RDW Standard Deviation 69.6 fL RDW Coefficient of Variation 19.1 % Immature Granulocyte % (Auto) 0.6 % Immature Granulocyte # (Auto) 0.04 K/uL Nucleated RBC Absolute Count (auto) 0.02 K/uL Nucleated Red Blood Cells % 0.3 % Polychromasia 1+ Hypochromasia PRESENT Basophilic Stippling 2+ Anisocytosis PRESENT Stomatocytes 1+ Prothrombin Time 41.0 SECONDS Prothromb Time International Ratio 3.6 Sodium Level 150 mmol/L Potassium Level 4.4 mmol/L Chloride Level 101 mmol/L Carbon Dioxide Level 48 mmol/L Anion Gap mmol/L Blood Urea Nitrogen 39 mg/dl Creatinine 0.39 mg/dl Est Creatinine Clear Calc Drug Dose 200.2 ml/min Estimated GFR () 130.5 Estimated GFR (Non- 112.6 BUN/Creatinine Ratio 100.3 Random Glucose 126 mg/dl Calcium Level 8.9 mg/dl Phosphorus Level 2.9 mg/dl Magnesium Level 2.0 mg/dl Test 04/29/16 11:57 Bedside Glucose 119 mg/dl Assessment & Plan 60 year old female with history of Chronic Respiratory Failure-recurrent admission for the same COPD, Obstructive Sleep Apnea, Obesity Hypoventilation Syndrome, CHF Diastolic Type, presenting with progressive shortness of breath x few days. ACUTE ON CHRONIC RESPIRATORY FAILURE multifactorial likely from Acute Diastolic CHF Exacerbation, COPD Exacerbation, possible Pneumonia-HCAP completed empiric abx with Zosyn - extubated, transitioned to Bipap, now on nasal cannula trial continue Solumedrol, Nebs Lasix on hold - appreciate ICU team recommendations HYPERNATREMIA - 1/2 NSS ordered monitor PRP HYPOTENSION resolved BP stable HYPOGLYCEMIA presented with BSG in 30's resolved ; BSG elevated now -possible due to steroids Pharmacy following for glycemic control appreciate input CHANGED MENTAL STATUS /LETHARGY : resolved due to hypercarbia, CO2 retention , respiratory failure /hypoglycemia mental status improved to baseline CHRONIC ATRIAL FIBRILLATION continue Amio, Metoprolol INR elevated > 3 Coumadin on hold Diltiazem on hold ANEMIA OF CHRONIC DISEASE : hx of GI bleed was found not to be a suitable candidate for EGD for severe respiratory failure requires intermittent PRBC transfusion s/p 1 unit of PRBC tx Hb stable post transfusion ~8 follow H&H DVT prophylaxis INR ELEVATED Code Status -discussed with pt able to communicate /awake and alert want resuscitation -including repeat mechanical ventilation if developed respiratory failure after extubation chest compression /CPR with cardiac arrest Pt will remains as FULL CODE status Disposition was in [facility] prior to admission PT/OT eval requested Current Inpatient Medications: Current Inpatient Medications Medications (Trade) Dose Ordered Sig/Tez Route Start Time Stop Time Status Last Admin Dose Admin Glucose (Glucose 40% Gel) 15-30 GRAMS 15 GRAMS... UD PRN PO 04/22/16 22:45 05/22/16 22:44 Glucose (Glucose Chew Tab) 4-8 Tablets 4 Tabl... UD PRN PO 04/22/16 22:45 05/22/16 22:44 Dextrose (Dextrose 50% 50ML Syringe) 25-50ML OF 50% DW IV FOR... UD PRN IV 04/22/16 22:45 05/22/16 22:44 Glucagon (Glucagon Inj) 1 mg UD PRN SQ 04/22/16 22:45 05/22/16 22:44 Miscellaneous Information (Consult Glycemic Management Pharmacy) 1 ea DAILY PRN N/A 04/23/16 00:12 05/23/16 00:11 Amiodarone HCl (Cordarone Tab) 200 mg TID PO 04/23/16 09:00 05/23/16 08:59 04/28/16 07:59 200 MG Budesonide (Pulmicort Respules 0.5MG/ 2ML Neb Soln) 0.5 mg Q12R INH 04/23/16 08:00 05/23/16 07:59 04/29/16 07:17 0.5 MG Calcitonin [place] (Fortical Nasal [place]) 1 spray DAILY NA 04/23/16 09:00 05/23/16 08:59 04/29/16 08:05 1 SPRAY Lactobacillus Acidophilus (Floranex Tab) 4 tab BID PO 04/23/16 09:00 05/23/16 08:59 04/28/16 07:56 4 TAB Magnesium Oxide (Mag-Ox Tab) 400 mg BID PO 04/23/16 09:00 05/23/16 08:59 04/28/16 07:59 400 MG Montelukast Sodium (Singulair Tab) 10 mg QPM PO 04/23/16 21:00 05/23/16 20:59 04/27/16 20:37 10 MG Sucralfate (Carafate Susp) 1 gm QID PO 04/23/16 09:00 05/23/16 08:59 04/28/16 07:58 1 GM Calcium/Vitamin D (Caltrate Plus Tab) 1 tab BID PO 04/23/16 09:00 05/23/16 08:59 04/28/16 07:58 1 TAB Nystatin (Mycostatin Powder) 1 appln BID EXT 04/23/16 09:00 05/23/16 08:59 04/29/16 08:05 1 APPLN Miscellaneous Information (Order Awaiting Action) 1 ea QS N/A 04/23/16 08:00 05/23/16 07:59 Chlorhexidine Gluconate (Peridex Oral Soln) 15 ml BID MT 04/23/16 10:00 1/27/17 09:59 04/29/16 08:05 15 ML Haloperidol Lactate (Haldol Inj) 5 mg Q8H PRN IV 04/24/16 14:30 05/24/16 14:29 Warfarin Sodium (Coumadin Tab) 5 mg DAILY@16 PO 04/25/16 16:00 05/25/16 15:59 Future Hold 04/27/16 16:10 5 MG Pantoprazole Sodium (Protonix Tab) 40 mg QAM PO 04/26/16 09:00 05/26/16 08:59 04/28/16 07:55 40 MG Potassium Chloride (Maricruz Ciel Elix) 20 meq BID PO 04/25/16 21:00 05/25/16 20:59 04/28/16 07:58 20 MEQ Metoprolol Tartrate (Lopressor Iv) 5 mg Q6H PRN IV 04/25/16 21:00 05/25/16 20:59 04/28/16 21:08 5 MG Metoprolol Tartrate 37.5 mg 37.5 mg Q12 PO 04/27/16 12:00 05/27/16 11:59 04/28/16 07:57 37.5 MG Methylprednisolone Sodium Succinate/ Syringe (Solu-Medrol IV/ Syringe) 0.32 ml @ 1.5 mls/min Q12 IV 04/28/16 21:00 05/28/16 20:59 04/29/16 08:04 1.5 MLS/MIN Insulin Glargine (Lantus Solostar Pen) 30 unit BID SQ 04/28/16 21:00 05/28/16 20:59 04/28/16 20:27 30 UNIT Ipratropium [place] (Atrovent 0.02% 0.5MG/2.5ML Neb) 0.5 mg Q6R INH 04/29/16 01:30 05/29/16 01:29 04/29/16 01:07 0.5 MG Levalbuterol (Xopenex 1.25MG/ 0.5ML Neb) 1.25 mg Q6R INH 04/29/16 01:30 05/29/16 01:29 04/29/16 01:07 1.25 MG Insulin Aspart (novoLOG ASPART) SLIDING SCALE Q6 SC 04/29/16 08:00 05/29/16 07:59 Arformoterol Tartrate 15 mcg 15 mcg Q12R INH 04/29/16 20:00 05/29/16 19:59 Sodium Chloride (04/28 Nss 1000ml) 1,000 ml @ 100 mls/hr Q10H IV 04/29/16 11:15 05/29/16 11:14 04/29/16 11:19 100 MLS/HR Acetaminophen (Tylenol Soln) 650 mg Q6H PRN PO 04/29/16 11:15 05/29/16 11:14
[2016-04-29 14:54] LABS: BUN/CREATININE RATIO 81.7 (10-20); CREATININE 0.43 mg/dl (0.60-1.20)
--- NOTE | 2016-04-29 14:59 | Pharmacy Progress Note ---
Glycemic Control: Progress Nt Date of Service Apr 29, 2016. Scope Glycemic Pharmacist consulted by Dr Mahajan on 04/23/16 for glycemic control and to write orders per [facility], located within [facility] inpatient glycemic control protocol. Objective Accuchecks BSG (last 24hrs): Test 04/28/16 18:02 04/28/16 20:20 04/28/16 23:51 04/29/16 03:32 Bedside Glucose 163 mg/dl (70-90) 138 mg/dl (70-90) 126 mg/dl (70-90) 120 mg/dl (70-90) Test 04/29/16 05:22 04/29/16 08:10 04/29/16 11:57 04/29/16 14:10 Random Glucose 126 mg/dl (70-99) Bedside Glucose 114 mg/dl (70-90) 119 mg/dl (70-90) Laboratory Data (last 24hrs) Test 04/29/16 05:22 04/29/16 14:10 Anion Gap mmol/L BUN/Creatinine Ratio 100.3 Blood Urea Nitrogen 39 mg/dl Creatinine 0.39 mg/dl Potassium Level 4.4 mmol/L Sodium Level 150 mmol/L White Blood Count 7.23 K/uL Red Blood Count 3.29 M/uL Hemoglobin 8.9 g/dL Hematocrit 32.6 % Mean Corpuscular Volume 99.1 fL Mean Corpuscular Hemoglobin 27.1 pg Mean Corpuscular Hemoglobin Concent 27.3 g/dl Platelet Count 139 K/uL Mean Platelet Volume 9.8 fL Neutrophils (%) (Auto) 95.0 % Lymphocytes (%) (Auto) 3.3 % Monocytes (%) (Auto) 1.0 % Eosinophils (%) (Auto) 0.0 % Basophils (%) (Auto) 0.1 % Neutrophils # (Auto) 6.87 K/uL Lymphocytes # (Auto) 0.24 K/uL Monocytes # (Auto) 0.07 K/uL Eosinophils # (Auto) 0.00 K/uL Basophils # (Auto) 0.01 K/uL HbA1c: 5.8% 04/10/16 Recent Pertinent Medications Outpatient Anti-diabetic Regimen: * Lantus 30 units BID * Novolog 22 units w/ breakfast + 18 units w/ lunch + 22 units w/ dinner + 10 units at bedtime * Sitagliptin 50mg PO Q AM * A1c = 5.8 % 04/10/16 The patient is currently receiving: * Basal insulin: Lantus 30 units every 12 hours; give 1/2 dose if BSG less than 120 * Correctional Insulin: Novolog Correction per scale Q 4 hours Goal Range: Low 140 mg/dL - High 180 mg/dL Correction Factor: 8 mg/dL/unit * Prandial insulin: Per carb ratio of 1 unit per 4 grams CHO consumed * Oral Agents: None currently Risk Factors for Insulin Resistance: * Steroids: Solu-medrol 20mg IV Q 12 hours * Infection: receiving Zosyn x 5 days for possible HCAP * Diet: had been NPO since extubated yesterday, no PO intake reported this AM, will be starting a T2DM diet this afternoon Assessment & Plan ASSESSMENT: 04/28/16 * Patient is likely to become more insulin sensitive over the next 24 hours: extubated, continuous tube feeds stopped, and steroid dose reduced * BSGs were elevated above goal over the last 24 hrs; most BSGs in the low-mid 200's * I anticipated glycemic control to improve in the near future * She may be at risk for hypoglycemia if Lantus dose is titrated too high and PO intake poor. Will reduce Lantus dose to outpt dose and add "half-dose" parameter as a precaution * Given possibility of changing insulin sensitivity over next 24 hours, will continue Q 4 hr BSGs with Novolog coverage --- and will convert to ACHS checks/ coverage tomorrow if glycemic control improved 04/29/16 * BSGs have ranged 114-163 since extubation yesterday * BSGs have been trending on the lower side today, last 2 BSGs 114-119 while NPO. Lantus dose was held this AM by RN due to NPO status. She may be at risk for hypoglycemia if diet not advanced on the current Lantus dose. Will lower the Lantus dose at this time as a precaution as PO intake uncertain. New dose will be ~50% of home dose. * Novolog CF and CR will be left the same as she typically requires parameters close to this (reviewed past admission data) PLAN FOR INPATIENT GLYCEMIC CONTROL: * Decreasing Lantus to 16 units SQ BID - give 1/2 dose if BSG less than 120 * Continuing correction factor of 8 mg/dl/unit * Continuing carb ratio of 1 unit per 4 grams CHO consumed * Continuing goal range of Low 140 mg/dL - High 180 mg/dL * Reassess insulin dose with each change in steroid dose * Please note that the plan above was derived based on current level of insulin resistance and hospital stress. These recommendations are appropriate for inpatient admission only. Plan of care upon discharge will need to be reassessed to avoid potential outpatient hypo/hyperglycemia. Thank you.
[2016-04-29] MEDS: MONTELUKAST SOD 10 MG TAB PO SCH (21:27)
[2016-04-29 22:01] LABS: BUN/CREATININE RATIO 95.7 (10-20); CALCIUM 8.8 mg/dl (8.5-10.1); CREATININE 0.37 mg/dl (0.60-1.20); POTASSIUM 4.7 mmol/L (3.5-5.1)
[2016-04-30] VITALS (15 sets, daily range): BP systolic 130–197; BP diastolic 72–105; PULSE 83–110; TEMP 36.5–36.6; O2SAT 5–98
[2016-04-30] MEDS: IPRATROPIUM BROMIDE NEB SOLN 0.02% 2.5 ML VIAL INH SCH ×4 (02:41→20:40)
[2016-04-30] MEDS: LEVALBUTEROL 1.25MG/0.5ML NEB INH SCH ×4 (02:41→20:40)
[2016-04-30] MEDS ORDERED: NURSING VERBAL MED ORDER ONE (03:45)
[2016-04-30 06:07] LABS: HEMATOCRIT 30.7 % (37-47); MEAN CELL VOLUME 99.4 fL (80-100); MEAN CORPUSCULAR HEMOGLOBIN 27.5 pg (25-34); MEAN CORPUSCULAR HGB CONC 27.7 g/dl (32-36); MEAN PLATELET VOLUME 9.1 fL (7.4-10.4); PLATELET COUNT 146 K/uL (130-400); RED BLOOD COUNT 3.09 M/uL (4.2-5.4)
[2016-04-30 06:20] LABS: INR 4.8 (0.9-1.1); PROTHROMBIN TIME (PATIENT) 54.6 SECONDS (9.0-12.0)
[2016-04-30 06:33] LABS: BUN/CREATININE RATIO 104.7 (10-20); CALCIUM 8.4 mg/dl (8.5-10.1); CREATININE 0.32 mg/dl (0.60-1.20); PHOSPHORUS 2.6 mg/dl (2.5-4.9); POTASSIUM 4.8 mmol/L (3.5-5.1)
[2016-04-30 06:35] LABS: ANISOCYTOSIS PRESENT; COMPLETE YES; HYPOCHROMIA PRESENT; IG% 0.8 %; LYMPH % 1.9 %; LYMPH ABS # 0.11 K/uL (1.2-3.4); MONO % 3.4 %; NEUT % 93.9 %; POLYCHROMASIA 1+; STOMATOCYTE 1+
[2016-04-30] MEDS: BUDESONIDE 0.5 MG/2 ML VIAL (PULMICORT) INH SCH ×2 (07:45→20:00)
[2016-04-30] MEDS: ARFORMOTEROL TART 15MCG/2ML VIAL INH SCH ×2 (07:45→20:00)
[2016-04-30] MEDS: INCRUSE ELLIPTA~ORDER AWAITING ACTION SCH ×3 (08:00→17:05)
[2016-04-30] MEDS: SODIUM CHLORIDE 0.45% 1000ML 1,000 ML IV SCH (08:28)
[2016-04-30] MEDS: PANTOprazole SOD 40 MG TAB PO SCH (08:29)
[2016-04-30] MEDS: POTASSIUM CHLORIDE 20 MEQ/15 ML UDC PO SCH (08:30)
[2016-04-30] MEDS: CALCIUM 600MG + VIT D 400 IU TAB PO SCH ×2 (08:30→20:16)
[2016-04-30] MEDS: INSULIN GLARGINE SOLOSTAR 100 UNITS/ML 3 ML PEN SQ SCH ×3 (08:30→21:00)
[2016-04-30] MEDS: METOPROLOL TARTRATE 25 MG TAB PO SCH ×2 (08:31→20:14)
[2016-04-30] MEDS: SUCRALFATE 1 GM/10 ML UDC PO SCH ×4 (08:31→20:16)
[2016-04-30] MEDS: CALCITONIN SALMON NA 200 IU/AC 3.7 ML BTL SCH (08:31)
[2016-04-30] MEDS: LACTOBACILLUS ACIDOPHILUS (FLORANEX) TAB PO SCH ×2 (08:31→20:14)
[2016-04-30] MEDS: AMIODARONE 200 MG TAB PO SCH ×3 (08:31→20:15)
[2016-04-30] MEDS: NYSTATIN POWDER 15GM BTL EXT SCH ×2 (08:32→20:33)
[2016-04-30] MEDS: CHLORHEXIDINE GLUCONATE 0.12% 480 ML MT SCH ×2 (08:37→20:16)
[2016-04-30] MEDS: METHYLPREDNISOLONE IV 20 MG in SYRINGE 0 ML IV SCH ×2 (08:37→20:18)
[2016-04-30] MEDS: MAGNESIUM OXIDE 400 MG TAB PO SCH ×2 (09:01→20:14)
[2016-04-30] MEDS: INSULIN ASPART 100 UNITS/ML 3 ML PEN SC SCH ×6 (09:07→21:00)
[2016-04-30] MEDS: HALOPERIDOL LACTATE 5 MG/ML 1 ML VIAL IV PRN (12:40)
[2016-04-30] MEDS ORDERED: INSULIN GLARGINE SOLOSTAR 100 UNITS/ML 3 ML PEN SQ ONE (12:45)
--- NOTE | 2016-04-30 12:54 | Progress Note ---
Medicine Progress Note Date & Time of Visit: Apr 30, 2016 at 12:43. Subjective patient seen, high flow 02 trial in progress patient states she is "hard to breathe" RR 24-28, O2 sats 94% denies chest pain, palpitations, abdominal pain, nausea no other symptoms Objective Last 8 Hrs Date Time Temp Pulse Resp B/P Pulse Ox O2 Delivery O2 Flow Rate FiO2 04/30/16 08:00 93 BiPAP 40 04/30/16 08:00 36.6 97 18 170/76 93 Nasal Cannula 3.0 04/30/16 07:46 87 95 40 04/30/16 07:46 110 23 95 BiPAP/CPAP 40 Physical Exam: General- oriented x 3, speaks in phrases with some effort and moderate accessory muscle use Eyes- anicteric Neck- no JVD Lungs- diminished, mild rales bilateral bases Heart-normal rate, irregularly irregular rhythm, no murmurs Abdomen- normal bowel sounds, soft, nontender Extremities- grade 1-2 lower leg edema, no calf tenderness Neuro- alert, oriented x 3; no gross focal deficits Skin- warm & dry Laboratory Results: Last 24 Hours Test 04/29/16 14:10 04/29/16 17:24 04/29/16 20:35 04/29/16 21:10 Sodium Level 148 mmol/L 149 mmol/L Potassium Level 5.0 mmol/L 4.7 mmol/L Chloride Level 101 mmol/L 100 mmol/L Carbon Dioxide Level 48 mmol/L 43 mmol/L Anion Gap -1.0 mmol/L 6.0 mmol/L Blood Urea Nitrogen 35 mg/dl 35 mg/dl Creatinine 0.43 mg/dl 0.37 mg/dl Est Creatinine Clear Calc Drug Dose 181.6 ml/min 211.0 ml/min Estimated GFR () 126.3 132.7 Estimated GFR (Non- 109.0 114.5 BUN/Creatinine Ratio 81.7 95.7 Random Glucose 166 mg/dl 147 mg/dl Calcium Level 9.0 mg/dl 8.8 mg/dl Bedside Glucose 161 mg/dl 151 mg/dl Test 04/29/16 23:15 04/30/16 05:40 04/30/16 11:09 04/30/16 12:23 Bedside Glucose 153 mg/dl 191 mg/dl White Blood Count 5.90 K/uL Red Blood Count 3.09 M/uL Hemoglobin 8.5 g/dL Hematocrit 30.7 % Mean Corpuscular Volume 99.4 fL Mean Corpuscular Hemoglobin 27.5 pg Mean Corpuscular Hemoglobin Concent 27.7 g/dl Platelet Count 146 K/uL Mean Platelet Volume 9.1 fL Neutrophils (%) (Auto) 93.9 % Lymphocytes (%) (Auto) 1.9 % Monocytes (%) (Auto) 3.4 % Eosinophils (%) (Auto) 0.0 % Basophils (%) (Auto) 0.0 % Neutrophils # (Auto) 5.54 K/uL Lymphocytes # (Auto) 0.11 K/uL Monocytes # (Auto) 0.20 K/uL Eosinophils # (Auto) 0.00 K/uL Basophils # (Auto) 0.00 K/uL RDW Standard Deviation 71.0 fL RDW Coefficient of Variation 19.3 % Immature Granulocyte % (Auto) 0.8 % Immature Granulocyte # (Auto) 0.05 K/uL Nucleated RBC Absolute Count (auto) 0.03 K/uL Nucleated Red Blood Cells % 0.5 % Polychromasia 1+ Hypochromasia PRESENT Basophilic Stippling 1+ Anisocytosis PRESENT Stomatocytes 1+ Prothrombin Time 54.6 SECONDS Prothromb Time International Ratio 4.8 Sodium Level 147 mmol/L Potassium Level 4.8 mmol/L Chloride Level 100 mmol/L Carbon Dioxide Level 47 mmol/L Anion Gap 0.0 mmol/L Blood Urea Nitrogen 34 mg/dl Creatinine 0.32 mg/dl Est Creatinine Clear Calc Drug Dose 244.0 ml/min Estimated GFR () 139.2 Estimated GFR (Non- 120.1 BUN/Creatinine Ratio 104.7 Random Glucose 186 mg/dl Calcium Level 8.4 mg/dl Phosphorus Level 2.6 mg/dl Assessment & Plan 60 year old female with history of Chronic Respiratory Failure-recurrent admission for the same COPD, Obstructive Sleep Apnea, Obesity Hypoventilation Syndrome, CHF Diastolic Type, presenting with progressive shortness of breath x few days. ACUTE ON CHRONIC RESPIRATORY FAILURE multifactorial likely from Acute Diastolic CHF Exacerbation, COPD Exacerbation, possible Pneumonia-HCAP completed empiric abx with Zosyn - extubated, transitioned to Bipap then nasal cannula trial--> put back on BiPap continue Solumedrol, Nebs Lasix on hold- patient clinically dry - appreciate ICU team recommendations HYPERNATREMIA - 1/2 NSS ordered Na improving, d/c NSS monitor Na HYPOTENSION resolved BP stable HYPOGLYCEMIA presented with BSG in 30's resolved Pharmacy following for glycemic control appreciate input CHANGED MENTAL STATUS /LETHARGY : resolved due to hypercarbia, CO2 retention , respiratory failure /hypoglycemia mental status improved to baseline CHRONIC ATRIAL FIBRILLATION continue Amio, Metoprolol INR elevated , 4.8 Coumadin on hold Diltiazem on hold ANEMIA OF CHRONIC DISEASE : hx of GI bleed was found not to be a suitable candidate for EGD for severe respiratory failure requires intermittent PRBC transfusion s/p 1 unit of PRBC tx Hb stable post transfusion ~8 follow H&H DVT prophylaxis INR ELEVATED Code Status -discussed with pt able to communicate /awake and alert want resuscitation -including repeat mechanical ventilation if developed respiratory failure after extubation chest compression /CPR with cardiac arrest Pt will remains as FULL CODE status Disposition was in [facility] prior to admission PT/OT eval requested Current Inpatient Medications: Current Inpatient Medications Medications (Trade) Dose Ordered Sig/Tez Route Start Time Stop Time Status Last Admin Dose Admin Glucose (Glucose 40% Gel) 15-30 GRAMS 15 GRAMS... UD PRN PO 04/22/16 22:45 05/22/16 22:44 Glucose (Glucose Chew Tab) 4-8 Tablets 4 Tabl... UD PRN PO 04/22/16 22:45 05/22/16 22:44 Dextrose (Dextrose 50% 50ML Syringe) 25-50ML OF 50% DW IV FOR... UD PRN IV 04/22/16 22:45 05/22/16 22:44 Glucagon (Glucagon Inj) 1 mg UD PRN SQ 04/22/16 22:45 05/22/16 22:44 Miscellaneous Information (Consult Glycemic Management Pharmacy) 1 ea DAILY PRN N/A 04/23/16 00:12 05/23/16 00:11 Amiodarone HCl (Cordarone Tab) 200 mg TID PO 04/23/16 09:00 05/23/16 08:59 04/30/16 08:31 200 MG Budesonide (Pulmicort Respules 0.5MG/ 2ML Neb Soln) 0.5 mg Q12R INH 04/23/16 08:00 05/23/16 07:59 04/30/16 07:45 0.5 MG Calcitonin [place] (Fortical Nasal [place]) 1 spray DAILY NA 04/23/16 09:00 05/23/16 08:59 04/30/16 08:31 1 SPRAY Lactobacillus Acidophilus (Floranex Tab) 4 tab BID PO 04/23/16 09:00 05/23/16 08:59 04/30/16 08:31 4 TAB Magnesium Oxide (Mag-Ox Tab) 400 mg BID PO 04/23/16 09:00 05/23/16 08:59 04/30/16 09:01 400 MG Montelukast Sodium (Singulair Tab) 10 mg QPM PO 04/23/16 21:00 05/23/16 20:59 04/29/16 21:27 10 MG Sucralfate (Carafate Susp) 1 gm QID PO 04/23/16 09:00 05/23/16 08:59 04/30/16 08:31 1 GM Calcium/Vitamin D (Caltrate Plus Tab) 1 tab BID PO 04/23/16 09:00 05/23/16 08:59 04/30/16 08:30 1 TAB Nystatin (Mycostatin Powder) 1 appln BID EXT 04/23/16 09:00 05/23/16 08:59 04/30/16 08:32 1 APPLN Miscellaneous Information (Order Awaiting Action) 1 ea QS N/A 04/23/16 08:00 05/23/16 07:59 Chlorhexidine Gluconate (Peridex Oral Soln) 15 ml BID MT 04/23/16 10:00 05/23/16 09:59 04/30/16 08:37 15 ML Haloperidol Lactate (Haldol Inj) 5 mg Q8H PRN IV 04/24/16 14:30 05/24/16 14:29 04/30/16 12:40 5 MG Warfarin Sodium (Coumadin Tab) 5 mg DAILY@16 PO 04/25/16 16:00 05/25/16 15:59 Future Hold 04/27/16 16:10 5 MG Pantoprazole Sodium (Protonix Tab) 40 mg QAM PO 04/26/16 09:00 05/26/16 08:59 04/30/16 08:29 40 MG Metoprolol Tartrate (Lopressor Iv) 5 mg Q6H PRN IV 04/25/16 21:00 05/25/16 20:59 04/29/16 11:25 5 MG Metoprolol Tartrate 37.5 mg 37.5 mg Q12 PO 04/27/16 12:00 05/27/16 11:59 04/30/16 08:31 37.5 MG Methylprednisolone Sodium Succinate/ Syringe (Solu-Medrol IV/ Syringe) 0.32 ml @ 1.5 mls/min Q12 IV 04/28/16 21:00 05/28/16 20:59 04/30/16 08:37 1.5 MLS/MIN Ipratropium [place] (Atrovent 0.02% 0.5MG/2.5ML Neb) 0.5 mg Q6R INH 04/29/16 01:30 05/29/16 01:29 04/30/16 02:41 0.5 MG Levalbuterol (Xopenex 1.25MG/ 0.5ML Neb) 1.25 mg Q6R INH 04/29/16 01:30 05/29/16 01:29 04/30/16 02:41 1.25 MG Arformoterol Tartrate (Brovana 15MCG/ 2ML Neb Soln) 15 mcg Q12R INH 04/29/16 20:00 05/29/16 19:59 04/30/16 07:45 15 MCG Acetaminophen (Tylenol Soln) 650 mg Q6H PRN PO 04/29/16 11:15 05/29/16 11:14 Insulin Glargine (Lantus Solostar Pen) 18 unit BID SQ 04/29/16 21:00 05/29/16 20:59 04/30/16 09:07 9 UNIT Insulin Aspart (novoLOG ASPART) SLIDING SCALE ACHS SC 04/30/16 06:45 05/30/16 06:44 04/30/16 12:38 2 UNITS Insulin Glargine (Lantus Solostar Pen) 5 unit ONE ONCE SQ 04/30/16 12:45 04/30/16 12:46
--- NOTE | 2016-04-30 12:55 | Pharmacy Progress Note ---
Glycemic Control: Progress Nt Date of Service Apr 30, 2016. Scope Glycemic Pharmacist consulted by Dr Mahajan on 04/23/16 for glycemic control and to write orders per [facility] inpatient glycemic control protocol. Objective Accuchecks BSG (last 24hrs): Test 04/29/16 14:10 04/29/16 17:24 04/29/16 20:35 04/29/16 21:10 Random Glucose 166 mg/dl (70-99) 147 mg/dl (70-99) Bedside Glucose 161 mg/dl (70-90) 151 mg/dl (70-90) Test 04/29/16 23:15 04/30/16 05:40 04/30/16 11:09 04/30/16 12:23 Bedside Glucose 153 mg/dl (70-90) 191 mg/dl (70-90) Random Glucose 186 mg/dl (70-99) Laboratory Data (last 24hrs) Test 04/29/16 14:10 04/29/16 21:10 04/30/16 05:40 04/30/16 12:23 Anion Gap -1.0 mmol/L 6.0 mmol/L 0.0 mmol/L BUN/Creatinine Ratio 81.7 95.7 104.7 Blood Urea Nitrogen 35 mg/dl 35 mg/dl 34 mg/dl Creatinine 0.43 mg/dl 0.37 mg/dl 0.32 mg/dl Potassium Level 5.0 mmol/L 4.7 mmol/L 4.8 mmol/L Sodium Level 148 mmol/L 149 mmol/L 147 mmol/L White Blood Count 5.90 K/uL Red Blood Count 3.09 M/uL Hemoglobin 8.5 g/dL Hematocrit 30.7 % Mean Corpuscular Volume 99.4 fL Mean Corpuscular Hemoglobin 27.5 pg Mean Corpuscular Hemoglobin Concent 27.7 g/dl Platelet Count 146 K/uL Mean Platelet Volume 9.1 fL Neutrophils (%) (Auto) 93.9 % Lymphocytes (%) (Auto) 1.9 % Monocytes (%) (Auto) 3.4 % Eosinophils (%) (Auto) 0.0 % Basophils (%) (Auto) 0.0 % Neutrophils # (Auto) 5.54 K/uL Lymphocytes # (Auto) 0.11 K/uL Monocytes # (Auto) 0.20 K/uL Eosinophils # (Auto) 0.00 K/uL Basophils # (Auto) 0.00 K/uL HbA1c: 5.8% 04/10/16 Recent Pertinent Medications Outpatient Anti-diabetic Regimen: * Lantus 30 units BID * Novolog 22 units w/ breakfast + 18 units w/ lunch + 22 units w/ dinner + 10 units at bedtime * Sitagliptin 50mg PO Q AM * A1c = 5.8 % 04/10/16 The patient is currently receiving: * Basal insulin: Lantus 318 units every 12 hours; give 1/2 dose if BSG less than 120 * Correctional Insulin: Novolog Correction per scale Q 4 hours Goal Range: Low 140 mg/dL - High 180 mg/dL Correction Factor: 8 mg/dL/unit * Prandial insulin: Per carb ratio of 1 unit per 4 grams CHO consumed * Oral Agents: None currently Risk Factors for Insulin Resistance: * Steroids: Solu-medrol 20mg IV Q 12 hours * Diet: T2DM ordered yesterday afternoon however nursing has charted 0 carbs eaten with meals since diet began, also documented that pt refusing meals in notes Assessment & Plan ASSESSMENT: 04/28/16 * Patient is likely to become more insulin sensitive over the next 24 hours: extubated, continuous tube feeds stopped, and steroid dose reduced * BSGs were elevated above goal over the last 24 hrs; most BSGs in the low-mid 200's * I anticipated glycemic control to improve in the near future * She may be at risk for hypoglycemia if Lantus dose is titrated too high and PO intake poor. Will reduce Lantus dose to outpt dose and add "half-dose" parameter as a precaution * Given possibility of changing insulin sensitivity over next 24 hours, will continue Q 4 hr BSGs with Novolog coverage --- and will convert to ACHS checks/ coverage tomorrow if glycemic control improved 04/29/16 * BSGs have ranged 114-163 since extubation yesterday * BSGs have been trending on the lower side today, last 2 BSGs 114-119 while NPO. Lantus dose was held this AM by RN due to NPO status. She may be at risk for hypoglycemia if diet not advanced on the current Lantus dose. Will lower the Lantus dose at this time as a precaution as PO intake uncertain. New dose will be ~50% of home dose. * Novolog CF and CR will be left the same as she typically requires parameters close to this (reviewed past admission data) 04/30/16 * Glycemic control acceptable at this time, BSGs ranged 119-192 over last 24 hours; however BSGs now creeping up on lower basal dose * Fasting BSGs today 187-192 with 27 units of Lantus on board (18 last night + 9 this AM - RN reduced the ordered AM Lantus dose); she is basal insulin deficient at this time. Will give supplemental Lantus dose now to make up for reduced dose given this AM PLAN FOR INPATIENT GLYCEMIC CONTROL: * Lantus 16 units SQ BID - give 1/2 dose if BSG less than 120; give additional 5 units SQ x 1 now please due to elevated fasting BSGs * Continuing correction factor of 8 mg/dl/unit * Continuing carb ratio of 1 unit per 4 grams CHO consumed * Continuing goal range of Low 140 mg/dL - High 180 mg/dL * Reassess insulin dose with each change in steroid dose * Please note that the plan above was derived based on current level of insulin resistance and hospital stress. These recommendations are appropriate for inpatient admission only. Plan of care upon discharge will need to be reassessed to avoid potential outpatient hypo/hyperglycemia. Thank you.
[2016-04-30 14:06] LABS: BUN/CREATININE RATIO 82.3 (10-20); CALCIUM 8.9 mg/dl (8.5-10.1); CREATININE 0.41 mg/dl (0.60-1.20); POTASSIUM 5.6 mmol/L (3.5-5.1)
[2016-04-30] MEDS: MONTELUKAST SOD 10 MG TAB PO SCH (20:14)
[2016-05-01] VITALS (16 sets, daily range): BP systolic 122–182; BP diastolic 75–95; PULSE 75–104; TEMP 35.8–36.7; O2SAT 92–100
[2016-05-01] MEDS: IPRATROPIUM BROMIDE NEB SOLN 0.02% 2.5 ML VIAL INH SCH ×4 (02:15→21:00)
[2016-05-01] MEDS: LEVALBUTEROL 1.25MG/0.5ML NEB INH SCH ×4 (02:15→21:00)
[2016-05-01 06:09] LABS: HEMATOCRIT 31.3 % (37-47); MEAN CELL VOLUME 98.4 fL (80-100); MEAN CORPUSCULAR HEMOGLOBIN 26.4 pg (25-34); MEAN CORPUSCULAR HGB CONC 26.8 g/dl (32-36); MEAN PLATELET VOLUME 9.3 fL (7.4-10.4); PLATELET COUNT 173 K/uL (130-400); RED BLOOD COUNT 3.18 M/uL (4.2-5.4); WHITE BLOOD COUNT 7.14 K/uL (4.8-10.8)
[2016-05-01 06:23] LABS: INR 5.5 (0.9-1.1); PROTHROMBIN TIME (PATIENT) 63.5 SECONDS (9.0-12.0)
[2016-05-01 06:41] LABS: BUN/CREATININE RATIO 107.2 (10-20); CALCIUM 8.4 mg/dl (8.5-10.1); CREATININE 0.32 mg/dl (0.60-1.20); POTASSIUM 4.9 mmol/L (3.5-5.1)
[2016-05-01 06:43] LABS: ANISOCYTOSIS PRESENT; COMPLETE YES; IG% 0.6 %; LYMPH % 2.9 %; LYMPH ABS # 0.21 K/uL (1.2-3.4); MONO % 1.7 %; NEUT % 94.8 %; STOMATOCYTE 1+
[2016-05-01] MEDS: INCRUSE ELLIPTA~ORDER AWAITING ACTION SCH ×3 (08:00→15:15)
[2016-05-01] MEDS: BUDESONIDE 0.5 MG/2 ML VIAL (PULMICORT) INH SCH ×2 (08:15→21:08)
[2016-05-01] MEDS: ARFORMOTEROL TART 15MCG/2ML VIAL INH SCH ×2 (08:15→21:08)
[2016-05-01] MEDS: INSULIN ASPART 100 UNITS/ML 3 ML PEN SC SCH ×4 (09:25→21:39)
[2016-05-01] MEDS: NYSTATIN POWDER 15GM BTL EXT SCH ×2 (09:26→21:22)
[2016-05-01] MEDS: CHLORHEXIDINE GLUCONATE 0.12% 480 ML MT SCH ×2 (09:27→21:22)
[2016-05-01] MEDS: CALCIUM 600MG + VIT D 400 IU TAB PO SCH ×2 (09:27→21:23)
[2016-05-01] MEDS: METHYLPREDNISOLONE IV 20 MG in SYRINGE 0 ML IV SCH (09:27)
[2016-05-01] MEDS: SUCRALFATE 1 GM/10 ML UDC PO SCH ×4 (09:27→21:26)
[2016-05-01] MEDS: CALCITONIN SALMON NA 200 IU/AC 3.7 ML BTL SCH (09:27)
[2016-05-01] MEDS: LACTOBACILLUS ACIDOPHILUS (FLORANEX) TAB PO SCH ×2 (09:28→21:23)
[2016-05-01] MEDS: MAGNESIUM OXIDE 400 MG TAB PO SCH ×2 (09:28→21:26)
[2016-05-01] MEDS: AMIODARONE 200 MG TAB PO SCH ×3 (09:28→21:26)
[2016-05-01] MEDS: PANTOprazole SOD 40 MG TAB PO SCH (09:28)
[2016-05-01] MEDS: METOPROLOL TARTRATE 25 MG TAB PO SCH ×2 (09:29→21:23)
[2016-05-01] MEDS: INSULIN GLARGINE SOLOSTAR 100 UNITS/ML 3 ML PEN SQ SCH ×2 (09:31→21:40)
--- NOTE | 2016-05-01 09:45 | Palliative Care Consultation ---
Consultation Date of Consultation: May 01, 2016. Requesting Physician: Dr. Mahajan Attending Physician: Dr. Mahajan Reason for Consultation: Goals of care History of Present Illness This 60 year old female patient presented from inpatient rehab nine days ago with complaints of increased shortness of breath and altered mental status. This patient is in the hospital quite frequently as she has chronic respiratory failure and other issues outlined in her PMH below. She's had several ICU and PCU admissions, usually presents short of breath and hypercapnic, requiring bipap. She is to wear a bipap at home but apparently does not always use as ordered. She was intubated on admission and subsequently extubated a few days later and is now dependent on bipap. Her overall condition is declining, she is really unable to tolerate being off the bipap at all. Per Dr. Mahajan's note, the patient was still wishing to be a full resuscitation level. However, last evening when her , Guero, was here, she indicated that she would be okay with a palliative consult and to discuss goals of care. I met with the patient in her room. She is on high-flow nasal cannula, appears short of breath and is asking for the bipap to be put back on. However, she just had medications and liquids and is ordered to be on the high-flow for at least an hour after any PO intake to avoid aspiration. We discussed her current condition and goals of care. Unfortunately, Lela really didn't offer much conversation or insight into what her goals of care are. Only stated, "I don't know," again and again. She did verbalize understanding of options: aggressive vs. conservative/comfort, but again, she still did not offer any decisions. I spoke with her on the phone who stated that his only wish for her is to be comfortable. He fears that any aggressive treatment is only going to do harm. He would support her decision to be a DNR/DNI, but the patient gets upset when he talks about it with her. He is going to talk with Lela about this more. I offered my support. 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 Surgical History: Tonsillectomy and adenoidectomy Cholecystectomy Bilateral tubal ligation Bronchoscopy Social History Smoking Status: Former Smoker History of Alcohol Use: Yes (special occasions) Drug Use: none Marital Status: Housing Status: lives with family Occupation Status: disabled Review of Systems Respiratory: + dyspnea at rest, + shortness of breath Cardiac: No chest pain Abdomen: No nausea, No pain, No vomiting full ROS not obtained due to SOB Allergies Coded Allergies: POLLEN (Verified Allergy, Intermediate, /, 04/22/16) Medications Current Inpatient Medications Medications (Trade) Dose Ordered Sig/Tez Route Start Time Stop Time Status Last Admin Dose Admin Glucose (Glucose 40% Gel) 15-30 GRAMS 15 GRAMS... UD PRN PO 04/22/16 22:45 05/22/16 22:44 Glucose (Glucose Chew Tab) 4-8 Tablets 4 Tabl... UD PRN PO 04/22/16 22:45 05/22/16 22:44 Dextrose (Dextrose 50% 50ML Syringe) 25-50ML OF 50% DW IV FOR... UD PRN IV 04/22/16 22:45 05/22/16 22:44 Glucagon (Glucagon Inj) 1 mg UD PRN SQ 04/22/16 22:45 05/22/16 22:44 Miscellaneous Information (Consult Glycemic Management Pharmacy) 1 ea DAILY PRN N/A 04/23/16 00:12 05/23/16 00:11 Amiodarone HCl (Cordarone Tab) 200 mg TID PO 04/23/16 09:00 05/23/16 08:59 05/01/16 09:28 200 MG Budesonide (Pulmicort Respules 0.5MG/ 2ML Neb Soln) 0.5 mg Q12R INH 04/23/16 08:00 05/23/16 07:59 05/01/16 08:15 0.5 MG Calcitonin [place] (Fortical Nasal [place]) 1 spray DAILY NA 04/23/16 09:00 05/23/16 08:59 05/01/16 09:27 1 SPRAY Lactobacillus Acidophilus (Floranex Tab) 4 tab BID PO 04/23/16 09:00 05/23/16 08:59 05/01/16 09:28 4 TAB Magnesium Oxide (Mag-Ox Tab) 400 mg BID PO 04/23/16 09:00 05/23/16 08:59 05/01/16 09:28 400 MG Montelukast Sodium (Singulair Tab) 10 mg QPM PO 04/23/16 21:00 05/23/16 20:59 04/30/16 20:14 10 MG Sucralfate (Carafate Susp) 1 gm QID PO 04/23/16 09:00 05/23/16 08:59 05/01/16 09:27 1 GM Calcium/Vitamin D (Caltrate Plus Tab) 1 tab BID PO 04/23/16 09:00 05/23/16 08:59 05/01/16 09:27 1 TAB Nystatin (Mycostatin Powder) 1 appln BID EXT 04/23/16 09:00 05/23/16 08:59 05/01/16 09:26 1 APPLN Miscellaneous Information (Order Awaiting Action) 1 ea QS N/A 04/23/16 08:00 05/23/16 07:59 Chlorhexidine Gluconate (Peridex Oral Soln) 15 ml BID MT 04/23/16 10:00 05/23/16 09:59 05/01/16 09:27 15 ML Haloperidol Lactate (Haldol Inj) 5 mg Q8H PRN IV 04/24/16 14:30 05/24/16 14:29 04/30/16 12:40 5 MG Warfarin Sodium (Coumadin Tab) 5 mg DAILY@16 PO 04/25/16 16:00 05/25/16 15:59 Future Hold 04/27/16 16:10 5 MG Pantoprazole Sodium (Protonix Tab) 40 mg QAM PO 04/26/16 09:00 05/26/16 08:59 05/01/16 09:28 40 MG Metoprolol Tartrate (Lopressor Iv) 5 mg Q6H PRN IV 04/25/16 21:00 05/25/16 20:59 04/29/16 11:25 5 MG Metoprolol Tartrate 37.5 mg 37.5 mg Q12 PO 04/27/16 12:00 05/27/16 11:59 05/01/16 09:29 37.5 MG Methylprednisolone Sodium Succinate/ Syringe (Solu-Medrol IV/ Syringe) 0.32 ml @ 1.5 mls/min Q12 IV 04/28/16 21:00 05/28/16 20:59 05/01/16 09:27 1.5 MLS/MIN Ipratropium [place] (Atrovent 0.02% 0.5MG/2.5ML Neb) 0.5 mg Q6R INH 04/29/16 01:30 05/29/16 01:29 05/01/16 02:15 0.5 MG Levalbuterol (Xopenex 1.25MG/ 0.5ML Neb) 1.25 mg Q6R INH 04/29/16 01:30 05/29/16 01:29 05/01/16 02:15 1.25 MG Arformoterol Tartrate (Brovana 15MCG/ 2ML Neb Soln) 15 mcg Q12R INH 04/29/16 20:00 05/29/16 19:59 05/01/16 08:15 15 MCG Acetaminophen (Tylenol Soln) 650 mg Q6H PRN PO 04/29/16 11:15 05/29/16 11:14 Insulin Aspart (novoLOG ASPART) SLIDING SCALE ACHS SC 04/30/16 06:45 05/30/16 06:44 04/30/16 21:00 1 UNITS Insulin Glargine (Lantus Solostar Pen) 16 unit BID SQ 04/30/16 21:00 05/30/16 20:59 05/01/16 09:31 8 UNIT Physical Exam Date Time Temp Pulse Resp B/P Pulse Ox O2 Delivery O2 Flow Rate FiO2 05/01/16 08:31 84 100 40 05/01/16 08:15 89 20 98 BiPAP/CPAP 40 05/01/16 04:00 96 BiPAP 40 05/01/16 03:45 35.8 75 18 122/76 98 CPAP 05/01/16 02:16 87 97 40 05/01/16 02:16 87 20 97 BiPAP/CPAP 40 05/01/16 00:00 96 BiPAP 40 04/30/16 23:49 86 94 40 04/30/16 23:15 36.5 85 20 132/105 96 CPAP 04/30/16 20:44 87 96 40 04/30/16 20:43 87 20 96 BiPAP/CPAP 40 04/30/16 20:00 98 BiPAP 40 04/30/16 20:00 87 24 197/88 98 BiPAP 40 04/30/16 17:33 94 94 40 04/30/16 16:00 5 BiPAP 40 04/30/16 16:00 36.6 86 7 140/82 95 BiPAP 40 04/30/16 14:04 94 95 40 04/30/16 14:02 109 23 94 BiPAP/CPAP 40 04/30/16 12:00 96 Free Flow/[place] 04/30/16 12:00 36.6 88 21 130/88 93 Nasal Cannula 3.0 General Appearance: + mild distress, + pertinent finding (chronically ill appearing) Eyes: + pertinent finding (orbital edema) ENT: + pertinent finding (facial edema) Neck: + pertinent finding (short, thick neck) Respiratory: + respiratory distress (moderate, this is basically her baseline) , + decreased breath sounds, + rhonchi, + wheezing, + pertinent finding (RR 22) Cardiovascular: regular rate, rhythm (distant), + pertinent finding ( generalized edema on entire body) Abdomen: normal bowel sounds, soft, + pertinent finding (obese abdomen) Neurologic/Psychiatric: alert, oriented x 3 Skin: + pertinent finding Laboratory Results Last 24 Hours Test 04/30/16 11:09 04/30/16 12:46 04/30/16 17:11 04/30/16 21:03 Bedside Glucose 191 mg/dl 191 mg/dl 185 mg/dl Sodium Level 145 mmol/L Potassium Level 5.6 mmol/L Chloride Level 100 mmol/L Carbon Dioxide Level 42 mmol/L Anion Gap 3.0 mmol/L Blood Urea Nitrogen 34 mg/dl Creatinine 0.41 mg/dl Est Creatinine Clear Calc Drug Dose 193.4 ml/min Estimated GFR () 128.3 Estimated GFR (Non- 110.7 BUN/Creatinine Ratio 82.3 Random Glucose 208 mg/dl Calcium Level 8.9 mg/dl Test 04/30/16 22:37 05/01/16 05:55 05/01/16 06:00 Potassium Level 5.0 mmol/L 4.9 mmol/L White Blood Count 7.14 K/uL Red Blood Count 3.18 M/uL Hemoglobin 8.4 g/dL Hematocrit 31.3 % Mean Corpuscular Volume 98.4 fL Mean Corpuscular Hemoglobin 26.4 pg Mean Corpuscular Hemoglobin Concent 26.8 g/dl Platelet Count 173 K/uL Mean Platelet Volume 9.3 fL Neutrophils (%) (Auto) 94.8 % Lymphocytes (%) (Auto) 2.9 % Monocytes (%) (Auto) 1.7 % Eosinophils (%) (Auto) 0.0 % Basophils (%) (Auto) 0.0 % Neutrophils # (Auto) 6.77 K/uL Lymphocytes # (Auto) 0.21 K/uL Monocytes # (Auto) 0.12 K/uL Eosinophils # (Auto) 0.00 K/uL Basophils # (Auto) 0.00 K/uL RDW Standard Deviation 68.8 fL RDW Coefficient of Variation 19.1 % Immature Granulocyte % (Auto) 0.6 % Immature Granulocyte # (Auto) 0.04 K/uL Nucleated RBC Absolute Count (auto) 0.03 K/uL Nucleated Red Blood Cells % 0.4 % Anisocytosis PRESENT Stomatocytes 1+ Prothrombin Time 63.5 SECONDS Prothromb Time International Ratio 5.5 Sodium Level 147 mmol/L Chloride Level 100 mmol/L Carbon Dioxide Level 46 mmol/L Anion Gap 1.0 mmol/L Blood Urea Nitrogen 34 mg/dl Creatinine 0.32 mg/dl Est Creatinine Clear Calc Drug Dose 248.9 ml/min Estimated GFR () 139.2 Estimated GFR (Non- 120.1 BUN/Creatinine Ratio 107.2 Random Glucose 174 mg/dl Calcium Level 8.4 mg/dl Bedside Glucose 157 mg/dl Assessment & Plan Palliative Performance Scale: 30 % Problem list: Acute on chronic respiratory failure, Bipap-dependent Hypernatremia Hypercapnia Altered mental status Chronic atrial fibrillation Anemia of chronic disease Goals of care Palliative care plan: Continue to support and discuss goals of care with the patient. If she wishes to be intubated, there is a high likelihood of needing tracheostomy, which she has adamantly refused in the past. If she wishes to remain on the bipap all the time, she would need PEG tube for nutrition as she is almost unable to tolerate taking the mask off at all. is to have conversation with Lela and I will continue to follow. No decisions have been made at this time. Thank you kindly for this consult.
--- NOTE | 2016-05-01 09:58 | Progress Note ---
Medicine Progress Note Date & Time of Visit: May 01, 2016 at 09:50. Subjective patient seen with high flow o2 on mild tachypnea but not in distress states breathing is the same, occasional cough no chest pain, abdominal pain poor appetite denies other symptoms Objective Last 8 Hrs Date Time Temp Pulse Resp B/P Pulse Ox O2 Delivery O2 Flow Rate FiO2 05/01/16 08:31 84 100 40 05/01/16 08:15 89 20 98 BiPAP/CPAP 40 05/01/16 04:00 96 BiPAP 40 05/01/16 03:45 35.8 75 18 122/76 98 CPAP 05/01/16 02:16 87 97 40 05/01/16 02:16 87 20 97 BiPAP/CPAP 40 Physical Exam: General- oriented x 3, speaks in phrases with some effort and moderate accessory muscle use Eyes- anicteric Neck- no JVD Lungs- diminished, (+) scattered wheeze bilaterally Heart- normal rate, irregularly irregular rhythm, no murmurs Abdomen- normal bowel sounds, soft, nontender Extremities- grade 1-2 lower leg edema, no calf tenderness Neuro- alert, oriented x 3; no gross focal deficits Skin- warm & dry Laboratory Results: Last 24 Hours Test 04/30/16 11:09 04/30/16 12:46 04/30/16 17:11 04/30/16 21:03 Bedside Glucose 191 mg/dl 191 mg/dl 185 mg/dl Sodium Level 145 mmol/L Potassium Level 5.6 mmol/L Chloride Level 100 mmol/L Carbon Dioxide Level 42 mmol/L Anion Gap 3.0 mmol/L Blood Urea Nitrogen 34 mg/dl Creatinine 0.41 mg/dl Est Creatinine Clear Calc Drug Dose 193.4 ml/min Estimated GFR () 128.3 Estimated GFR (Non- 110.7 BUN/Creatinine Ratio 82.3 Random Glucose 208 mg/dl Calcium Level 8.9 mg/dl Test 04/30/16 22:37 05/01/16 05:55 05/01/16 06:00 Potassium Level 5.0 mmol/L 4.9 mmol/L White Blood Count 7.14 K/uL Red Blood Count 3.18 M/uL Hemoglobin 8.4 g/dL Hematocrit 31.3 % Mean Corpuscular Volume 98.4 fL Mean Corpuscular Hemoglobin 26.4 pg Mean Corpuscular Hemoglobin Concent 26.8 g/dl Platelet Count 173 K/uL Mean Platelet Volume 9.3 fL Neutrophils (%) (Auto) 94.8 % Lymphocytes (%) (Auto) 2.9 % Monocytes (%) (Auto) 1.7 % Eosinophils (%) (Auto) 0.0 % Basophils (%) (Auto) 0.0 % Neutrophils # (Auto) 6.77 K/uL Lymphocytes # (Auto) 0.21 K/uL Monocytes # (Auto) 0.12 K/uL Eosinophils # (Auto) 0.00 K/uL Basophils # (Auto) 0.00 K/uL RDW Standard Deviation 68.8 fL RDW Coefficient of Variation 19.1 % Immature Granulocyte % (Auto) 0.6 % Immature Granulocyte # (Auto) 0.04 K/uL Nucleated RBC Absolute Count (auto) 0.03 K/uL Nucleated Red Blood Cells % 0.4 % Anisocytosis PRESENT Stomatocytes 1+ Prothrombin Time 63.5 SECONDS Prothromb Time International Ratio 5.5 Sodium Level 147 mmol/L Chloride Level 100 mmol/L Carbon Dioxide Level 46 mmol/L Anion Gap 1.0 mmol/L Blood Urea Nitrogen 34 mg/dl Creatinine 0.32 mg/dl Est Creatinine Clear Calc Drug Dose 248.9 ml/min Estimated GFR () 139.2 Estimated GFR (Non- 120.1 BUN/Creatinine Ratio 107.2 Random Glucose 174 mg/dl Calcium Level 8.4 mg/dl Bedside Glucose 157 mg/dl Date/Time Source Procedure Growth Status 05/01/16 00:00 Nasal MRSA DNA Surveillance Screen - Final Specimen Negative for MRSA by DNA Probe Complete Assessment & Plan 60 year old female with history of Chronic Respiratory Failure-recurrent admission for the same COPD, Obstructive Sleep Apnea, Obesity Hypoventilation Syndrome, CHF Diastolic Type, presenting with progressive shortness of breath x few days. ACUTE ON CHRONIC RESPIRATORY FAILURE multifactorial likely from Acute Diastolic CHF Exacerbation, COPD Exacerbation, possible Pneumonia-HCAP completed empiric abx with Zosyn - extubated, transitioned to Bipap then nasal cannula trial--> put back on BiPap continue Solumedrol, Nebs -- may need additional lasix today if Na is improved Palliative care team to discuss with patient today - appreciate ICU team recommendations HYPERNATREMIA - 1/2 NSS ordered Na improving, d/c NSS -- repeat PRP pending CHRONIC ATRIAL FIBRILLATION continue Amio, Metoprolol INR elevated , 5.5--> check liver function test Coumadin on hold Diltiazem on hold HYPOGLYCEMIA presented with BSG in 30's resolved Pharmacy following for glycemic control appreciate input CHANGED MENTAL STATUS /LETHARGY : resolved due to hypercarbia, CO2 retention , respiratory failure /hypoglycemia mental status improved to baseline ANEMIA OF CHRONIC DISEASE : hx of GI bleed was found not to be a suitable candidate for EGD for severe respiratory failure requires intermittent PRBC transfusion s/p 1 unit of PRBC tx Hb stable post transfusion ~8 follow H&H DVT prophylaxis INR ELEVATED Code Status - palliative care team to discuss with patient Disposition was in [facility] prior to admission PT/OT eval requested Current Inpatient Medications: Current Inpatient Medications Medications (Trade) Dose Ordered Sig/Tez Route Start Time Stop Time Status Last Admin Dose Admin Glucose (Glucose 40% Gel) 15-30 GRAMS 15 GRAMS... UD PRN PO 04/22/16 22:45 05/22/16 22:44 Glucose (Glucose Chew Tab) 4-8 Tablets 4 Tabl... UD PRN PO 04/22/16 22:45 05/22/16 22:44 Dextrose (Dextrose 50% 50ML Syringe) 25-50ML OF 50% DW IV FOR... UD PRN IV 04/22/16 22:45 05/22/16 22:44 Glucagon (Glucagon Inj) 1 mg UD PRN SQ 04/22/16 22:45 05/22/16 22:44 Miscellaneous Information (Consult Glycemic Management Pharmacy) 1 ea DAILY PRN N/A 04/23/16 00:12 05/23/16 00:11 Amiodarone HCl (Cordarone Tab) 200 mg TID PO 04/23/16 09:00 05/23/16 08:59 05/01/16 09:28 200 MG Budesonide (Pulmicort Respules 0.5MG/ 2ML Neb Soln) 0.5 mg Q12R INH 04/23/16 08:00 05/23/16 07:59 05/01/16 08:15 0.5 MG Calcitonin [place] (Fortical Nasal [place]) 1 spray DAILY NA 04/23/16 09:00 05/23/16 08:59 05/01/16 09:27 1 SPRAY Lactobacillus Acidophilus (Floranex Tab) 4 tab BID PO 04/23/16 09:00 05/23/16 08:59 05/01/16 09:28 4 TAB Magnesium Oxide (Mag-Ox Tab) 400 mg BID PO 04/23/16 09:00 05/23/16 08:59 05/01/16 09:28 400 MG Montelukast Sodium (Singulair Tab) 10 mg QPM PO 04/23/16 21:00 05/23/16 20:59 04/30/16 20:14 10 MG Sucralfate (Carafate Susp) 1 gm QID PO 04/23/16 09:00 05/23/16 08:59 05/01/16 09:27 1 GM Calcium/Vitamin D (Caltrate Plus Tab) 1 tab BID PO 04/23/16 09:00 05/23/16 08:59 05/01/16 09:27 1 TAB Nystatin (Mycostatin Powder) 1 appln BID EXT 04/23/16 09:00 05/23/16 08:59 05/01/16 09:26 1 APPLN Miscellaneous Information (Order Awaiting Action) 1 ea QS N/A 04/23/16 08:00 05/23/16 07:59 Chlorhexidine Gluconate (Peridex Oral Soln) 15 ml BID MT 04/23/16 10:00 05/23/16 09:59 05/01/16 09:27 15 ML Haloperidol Lactate (Haldol Inj) 5 mg Q8H PRN IV 04/24/16 14:30 05/24/16 14:29 04/30/16 12:40 5 MG Warfarin Sodium (Coumadin Tab) 5 mg DAILY@16 PO 04/25/16 16:00 05/25/16 15:59 Future Hold 04/27/16 16:10 5 MG Pantoprazole Sodium (Protonix Tab) 40 mg QAM PO 04/26/16 09:00 05/26/16 08:59 05/01/16 09:28 40 MG Metoprolol Tartrate (Lopressor Iv) 5 mg Q6H PRN IV 04/25/16 21:00 05/25/16 20:59 04/29/16 11:25 5 MG Metoprolol Tartrate 37.5 mg 37.5 mg Q12 PO 04/27/16 12:00 05/27/16 11:59 05/01/16 09:29 37.5 MG Methylprednisolone Sodium Succinate/ Syringe (Solu-Medrol IV/ Syringe) 0.32 ml @ 1.5 mls/min Q12 IV 04/28/16 21:00 05/28/16 20:59 05/01/16 09:27 1.5 MLS/MIN Ipratropium [place] (Atrovent 0.02% 0.5MG/2.5ML Neb) 0.5 mg Q6R INH 04/29/16 01:30 05/29/16 01:29 05/01/16 02:15 0.5 MG Levalbuterol (Xopenex 1.25MG/ 0.5ML Neb) 1.25 mg Q6R INH 04/29/16 01:30 05/29/16 01:29 05/01/16 02:15 1.25 MG Arformoterol Tartrate (Brovana 15MCG/ 2ML Neb Soln) 15 mcg Q12R INH 04/29/16 20:00 05/29/16 19:59 05/01/16 08:15 15 MCG Acetaminophen (Tylenol Soln) 650 mg Q6H PRN PO 04/29/16 11:15 05/29/16 11:14 Insulin Aspart (novoLOG ASPART) SLIDING SCALE ACHS SC 04/30/16 06:45 05/30/16 06:44 04/30/16 21:00 1 UNITS Insulin Glargine (Lantus Solostar Pen) 16 unit BID SQ 04/30/16 21:00 05/30/16 20:59 05/01/16 09:31 8 UNIT
[2016-05-01 10:56] LABS: PARTIAL THROMBOPLASTIN RATIO 1.7
[2016-05-01] MEDS ORDERED: INSULIN GLARGINE SOLOSTAR 100 UNITS/ML 3 ML PEN SQ ONE (11:00)
[2016-05-01 11:27] LABS: BUN/CREATININE RATIO 95.3 (10-20); CALCIUM 8.7 mg/dl (8.5-10.1); CREATININE 0.36 mg/dl (0.60-1.20); POTASSIUM 4.9 mmol/L (3.5-5.1)
--- NOTE | 2016-05-01 13:47 | Pharmacy Progress Note ---
Glycemic Control: Progress Nt Date of Service May 01, 2016. Scope Glycemic Pharmacist consulted by Dr Mahajan on 04/23/16 for glycemic control and to write orders per [facility] inpatient glycemic control protocol. Objective Accuchecks BSG (last 24hrs): Test 04/30/16 17:11 04/30/16 21:03 05/01/16 05:55 05/01/16 06:00 Bedside Glucose 191 mg/dl (70-90) 185 mg/dl (70-90) 157 mg/dl (70-90) Random Glucose 174 mg/dl (70-99) Test 05/01/16 10:25 Random Glucose 161 mg/dl (70-99) Laboratory Data (last 24hrs) Test 04/30/16 22:37 05/01/16 05:55 05/01/16 10:25 Potassium Level 5.0 mmol/L 4.9 mmol/L 4.9 mmol/L Anion Gap 1.0 mmol/L 3.0 mmol/L BUN/Creatinine Ratio 107.2 95.3 Blood Urea Nitrogen 34 mg/dl 34 mg/dl Creatinine 0.32 mg/dl 0.36 mg/dl Sodium Level 147 mmol/L 147 mmol/L White Blood Count 7.14 K/uL Red Blood Count 3.18 M/uL Hemoglobin 8.4 g/dL Hematocrit 31.3 % Mean Corpuscular Volume 98.4 fL Mean Corpuscular Hemoglobin 26.4 pg Mean Corpuscular Hemoglobin Concent 26.8 g/dl Platelet Count 173 K/uL Mean Platelet Volume 9.3 fL Neutrophils (%) (Auto) 94.8 % Lymphocytes (%) (Auto) 2.9 % Monocytes (%) (Auto) 1.7 % Eosinophils (%) (Auto) 0.0 % Basophils (%) (Auto) 0.0 % Neutrophils # (Auto) 6.77 K/uL Lymphocytes # (Auto) 0.21 K/uL Monocytes # (Auto) 0.12 K/uL Eosinophils # (Auto) 0.00 K/uL Basophils # (Auto) 0.00 K/uL HbA1c: 5.8% 04/10/16 Recent Pertinent Medications Outpatient Anti-diabetic Regimen: * Lantus 30 units BID * Novolog 22 units w/ breakfast + 18 units w/ lunch + 22 units w/ dinner + 10 units at bedtime * Sitagliptin 50mg PO Q AM * A1c = 5.8 % 04/10/16 The patient is currently receiving: * Basal insulin: Lantus 16 units every 12 hours; give 1/2 dose if BSG less than 120 * Correctional Insulin: Novolog Correction per scale Q 4 hours Goal Range: Low 140 mg/dL - High 180 mg/dL Correction Factor: 8 mg/dL/unit * Prandial insulin: Per carb ratio of 1 unit per 4 grams CHO consumed * Oral Agents: None currently Risk Factors for Insulin Resistance: * Steroids: Solu-medrol 20mg IV Q 12 hours ---> increasing to 40mg IV Q 8 hours * Diet: T2DM ordered however PO intake has been poor since extubation on 04/28/16 Assessment & Plan ASSESSMENT: 04/28/16 * Patient is likely to become more insulin sensitive over the next 24 hours: extubated, continuous tube feeds stopped, and steroid dose reduced * BSGs were elevated above goal over the last 24 hrs; most BSGs in the low-mid 200's * I anticipated glycemic control to improve in the near future * She may be at risk for hypoglycemia if Lantus dose is titrated too high and PO intake poor. Will reduce Lantus dose to outpt dose and add "half-dose" parameter as a precaution * Given possibility of changing insulin sensitivity over next 24 hours, will continue Q 4 hr BSGs with Novolog coverage --- and will convert to ACHS checks/ coverage tomorrow if glycemic control improved 04/29/16 * BSGs have ranged 114-163 since extubation yesterday * BSGs have been trending on the lower side today, last 2 BSGs 114-119 while NPO. Lantus dose was held this AM by RN due to NPO status. She may be at risk for hypoglycemia if diet not advanced on the current Lantus dose. Will lower the Lantus dose at this time as a precaution as PO intake uncertain. New dose will be ~50% of home dose. * Novolog CF and CR will be left the same as she typically requires parameters close to this (reviewed past admission data) 04/30/16 * Glycemic control acceptable at this time, BSGs ranged 119-192 over last 24 hours; however BSGs now creeping up on lower basal dose * Fasting BSGs today 187-192 with 27 units of Lantus on board (18 last night + 9 this AM - RN reduced the ordered AM Lantus dose); she is basal insulin deficient at this time. Will give supplemental Lantus dose now to make up for reduced dose given this AM 05/01/16 * BSGs yesterday ranged 185-192 * Fasting BSG improved today, FBS 157-174, with 30 units of basal insulin on board * Would like to keep BSGs between 140-180, fasting BSGs in particular should be closer to 140 - will continue with the same Lantus dose for now - but keep the 1 /2 dose parameter given poor PO intake. She will be starting a higher dose of Solu-medrol this afternoon which may lead to increased insulin resistance. PLAN FOR INPATIENT GLYCEMIC CONTROL: * Continue Lantus 16 units SQ BID - give 1/2 dose if BSG less than 120; give additional 8 units SQ x 1 with lunch since only 8 units given this AM * Continuing correction factor of 8 mg/dl/unit * Continuing carb ratio of 1 unit per 4 grams CHO consumed * Continuing goal range of Low 140 mg/dL - High 180 mg/dL * Reassess insulin dose with each change in steroid dose * Please note that the plan above was derived based on current level of insulin resistance and hospital stress. These recommendations are appropriate for inpatient admission only. Plan of care upon discharge will need to be reassessed to avoid potential outpatient hypo/hyperglycemia. Thank you.
[2016-05-01] MEDS ORDERED: FUROSEMIDE INJ 20 MG in SYRINGE 0 ML IV ONE (14:00)
[2016-05-01] MEDS: METHYLPREDNISOLONE IV 40 MG in SYRINGE 0 ML IV SCH (17:13)
[2016-05-01 18:45] LABS: BUN/CREATININE RATIO 85.8 (10-20); CALCIUM 8.7 mg/dl (8.5-10.1); CREATININE 0.38 mg/dl (0.60-1.20); POTASSIUM 4.7 mmol/L (3.5-5.1)
[2016-05-01] MEDS: BOOST GLUCOSE CONTROL PO SCH (21:00)
[2016-05-01] MEDS: MONTELUKAST SOD 10 MG TAB PO SCH (21:24)
[2016-05-02] VITALS (16 sets, daily range): BP systolic 162–167; BP diastolic 82–89; PULSE 85–119; TEMP 36.2–37; O2SAT 84–100
[2016-05-02] MEDS: INCRUSE ELLIPTA~ORDER AWAITING ACTION SCH
[2016-05-02] MEDS: METHYLPREDNISOLONE IV 40 MG in SYRINGE 0 ML IV SCH ×2 (02:00→11:22)
[2016-05-02] MEDS: IPRATROPIUM BROMIDE NEB SOLN 0.02% 2.5 ML VIAL INH SCH ×4 (02:07→15:22)
[2016-05-02] MEDS: LEVALBUTEROL 1.25MG/0.5ML NEB INH SCH ×4 (02:08→15:22)
[2016-05-02 05:55] LABS: PROTHROMBIN TIME (PATIENT) 72.9 SECONDS (9.0-12.0)
[2016-05-02 06:01] LABS: INR 6.3 (0.9-1.1)
[2016-05-02 06:06] LABS: MEAN CORPUSCULAR HEMOGLOBIN 27.3 pg (25-34); MEAN CORPUSCULAR HGB CONC 27.6 g/dl (32-36); MEAN PLATELET VOLUME 9.5 fL (7.4-10.4); PLATELET COUNT 202 K/uL (130-400); RED BLOOD COUNT 2.93 M/uL (4.2-5.4); WHITE BLOOD COUNT 11.32 K/uL (4.8-10.8)
[2016-05-02 06:12] LABS: ANISOCYTOSIS PRESENT; COMPLETE YES; IG% 0.2 %; LYMPH % 1.2 %; LYMPH ABS # 0.14 K/uL (1.2-3.4); NEUT % 96.6 %; STOMATOCYTE 3+
[2016-05-02 06:14] LABS: BUN/CREATININE RATIO 108.6 (10-20); CALCIUM 8.5 mg/dl (8.5-10.1); CREATININE 0.33 mg/dl (0.60-1.20); POTASSIUM 4.6 mmol/L (3.5-5.1)
[2016-05-02] MEDS: HALOPERIDOL LACTATE 5 MG/ML 1 ML VIAL IV PRN (06:39)
[2016-05-02] MEDS ORDERED: FUROSEMIDE INJ 20 MG in SYRINGE 0 ML IV ONE ×2 (07:00→10:00)
[2016-05-02] MEDS: BUDESONIDE 0.5 MG/2 ML VIAL (PULMICORT) INH SCH (07:22)
--- NOTE | 2016-05-02 07:45 | DIAGNOSTIC IMAGING REPORT ---
CHEST ONE VIEW PORTABLE HISTORY: Short of breath. r/o congestion COMPARISON: Chest 04/29/2016. FINDINGS: Patient is rotated on this study. No pneumothorax. Small bilateral pleural effusions and bibasilar airspace opacities have progressed. The heart remains enlarged. Diffuse interstitial thickening persists. This favors mild pulmonary edema. Left suprahilar nodular density and fiducial markers are again noted. Right jugular Port-A-Cath terminates in the SVC. IMPRESSION: 1. Progression of the bilateral pleural effusions and bibasilar densities. 2. Persistent interstitial opacities which may represent pulmonary edema. Electronically signed by: Glen Magana M.D. 05/02/2016 7:43 AM Dictated Date/Time: 05/02/2016 7:42 AM
[2016-05-02] MEDS: ARFORMOTEROL TART 15MCG/2ML VIAL INH SCH (07:57)
[2016-05-02] MEDS: INSULIN ASPART 100 UNITS/ML 3 ML PEN SC SCH (08:37)
[2016-05-02] MEDS: INSULIN GLARGINE SOLOSTAR 100 UNITS/ML 3 ML PEN SQ SCH (08:38)
[2016-05-02] MEDS ORDERED: ALBUMIN HUMAN 25% 12.5 GM/50 ML VIAL IV ONE ×2 (08:45→11:30)
[2016-05-02] MEDS: CHLORHEXIDINE GLUCONATE 0.12% 480 ML MT SCH (08:47)
[2016-05-02] MEDS: NYSTATIN POWDER 15GM BTL EXT SCH (08:47)
[2016-05-02] MEDS: CALCITONIN SALMON NA 200 IU/AC 3.7 ML BTL SCH (08:48)
--- NOTE | 2016-05-02 08:58 | Progress Note ---
Medicine Progress Note Date & Time of Visit: May 02, 2016 at 08:50. Subjective patient reported increased shortness of breath this morning CXR (+) bilateral pleural effusion Lasix 20mg IV given, Bipap increased to 60 on exam, patient awake, nods to questions, follows commands states breathing is a little better denies chest pain no abdominal pain, nausea denies other symptoms Objective Last 8 Hrs Date Time Temp Pulse Resp B/P Pulse Ox O2 Delivery O2 Flow Rate FiO2 05/02/16 08:00 36.4 91 20 163/84 99 BiPAP 05/02/16 07:22 88 22 100 BiPAP/CPAP 60 05/02/16 07:22 88 100 60 05/02/16 04:05 36.4 85 19 167/89 90 BiPAP 05/02/16 04:00 99 BiPAP 40 05/02/16 02:08 99 26 90 BiPAP/CPAP 40 05/02/16 02:08 99 90 40 Physical Exam: General- oriented x 3, speaks in phrases with some effort and moderate accessory muscle use Eyes- anicteric Neck- no JVD Lungs- diminished, (+) scattered rales bilaterally Heart- normal rate, irregularly irregular rhythm, no murmurs Abdomen- normal bowel sounds, soft, nontender Extremities- grade 2 lower leg edema, no calf tenderness Neuro- alert, oriented x 3; no gross focal deficits Skin- warm & dry Laboratory Results: Last 24 Hours Test 05/01/16 10:25 05/01/16 10:54 05/01/16 16:19 05/01/16 17:59 Activated Partial Thromboplast Time 43.2 SECONDS Partial Thromboplastin Ratio 1.7 Sodium Level 147 mmol/L 145 mmol/L Potassium Level 4.9 mmol/L 4.7 mmol/L Chloride Level 100 mmol/L 96 mmol/L Carbon Dioxide Level 44 mmol/L 53 mmol/L Anion Gap 3.0 mmol/L -4.0 mmol/L Blood Urea Nitrogen 34 mg/dl 33 mg/dl Creatinine 0.36 mg/dl 0.38 mg/dl Est Creatinine Clear Calc Drug Dose 221.2 ml/min 209.6 ml/min Estimated GFR () 133.9 131.6 Estimated GFR (Non- 115.6 113.5 BUN/Creatinine Ratio 95.3 85.8 Random Glucose 161 mg/dl 182 mg/dl Calcium Level 8.7 mg/dl 8.7 mg/dl Total Bilirubin 1.9 mg/dl Direct Bilirubin 1.6 mg/dl Aspartate Amino Transf (AST/SGOT) 61 U/L Alanine Aminotransferase (ALT/SGPT) 111 U/L Alkaline Phosphatase 573 U/L Total Protein 5.4 gm/dl Albumin 2.2 gm/dl Bedside Glucose 160 mg/dl 199 mg/dl Test 05/01/16 21:02 05/02/16 05:02 05/02/16 05:46 05/02/16 08:47 Bedside Glucose 208 mg/dl 185 mg/dl White Blood Count 11.32 K/uL Red Blood Count 2.93 M/uL Hemoglobin 8.0 g/dL Hematocrit 29.0 % Mean Corpuscular Volume 99.0 fL Mean Corpuscular Hemoglobin 27.3 pg Mean Corpuscular Hemoglobin Concent 27.6 g/dl Platelet Count 202 K/uL Mean Platelet Volume 9.5 fL Neutrophils (%) (Auto) 96.6 % Lymphocytes (%) (Auto) 1.2 % Monocytes (%) (Auto) 2.0 % Eosinophils (%) (Auto) 0.0 % Basophils (%) (Auto) 0.0 % Neutrophils # (Auto) 10.93 K/uL Lymphocytes # (Auto) 0.14 K/uL Monocytes # (Auto) 0.23 K/uL Eosinophils # (Auto) 0.00 K/uL Basophils # (Auto) 0.00 K/uL RDW Standard Deviation 69.6 fL RDW Coefficient of Variation 19.1 % Immature Granulocyte % (Auto) 0.2 % Immature Granulocyte # (Auto) 0.02 K/uL Nucleated RBC Absolute Count (auto) 0.04 K/uL Nucleated Red Blood Cells % 0.3 % Basophilic Stippling 1+ Anisocytosis PRESENT Stomatocytes 3+ Prothrombin Time 72.9 SECONDS Prothromb Time International Ratio 6.3 Sodium Level 147 mmol/L Potassium Level 4.6 mmol/L Chloride Level 97 mmol/L Carbon Dioxide Level 48 mmol/L Anion Gap 2.0 mmol/L Blood Urea Nitrogen 36 mg/dl Creatinine 0.33 mg/dl Est Creatinine Clear Calc Drug Dose 241.5 ml/min Estimated GFR () 137.8 Estimated GFR (Non- 118.9 BUN/Creatinine Ratio 108.6 Random Glucose 190 mg/dl Calcium Level 8.5 mg/dl Assessment & Plan 60 year old female with history of Chronic Respiratory Failure-recurrent admission for the same COPD, Obstructive Sleep Apnea, Obesity Hypoventilation Syndrome, CHF Diastolic Type, presenting with progressive shortness of breath x few days. ACUTE ON CHRONIC RESPIRATORY FAILURE multifactorial likely from Acute Diastolic CHF Exacerbation, COPD Exacerbation, possible Pneumonia-HCAP completed empiric abx with Zosyn - extubated, transitioned to Bipap then nasal cannula trial--> put back on BiPap -- 05/02/16: (+) increase in pleural effusion albumin + lasix IV 1 dose ordered Solumedrol increased continue nebs HYPERNATREMIA - 1/2 NSS ordered Na improved ELEVATED INR, BILIRUBIN - INR 6.3 no signs of active bleeding - GI consulted ANEMIA OF CHRONIC DISEASE : hx of GI bleed was found not to be a suitable candidate for EGD for severe respiratory failure requires intermittent PRBC transfusion s/p 1 unit of PRBC tx Hg 8, monitor follow H&H CHRONIC ATRIAL FIBRILLATION continue Amio, Metoprolol INR elevated ,at 6.3 Coumadin on hold Diltiazem on hold HYPOGLYCEMIA presented with BSG in 30's resolved Pharmacy following for glycemic control appreciate input CHANGED MENTAL STATUS /LETHARGY : resolved due to hypercarbia, CO2 retention , respiratory failure /hypoglycemia mental status improved to baseline DVT prophylaxis INR ELEVATED Code Status - palliative care team had a discussion with patient yesterday, patient prefers to be full code for now and would like to think about this more Disposition pending Current Inpatient Medications: Current Inpatient Medications Medications (Trade) Dose Ordered Sig/Tez Route Start Time Stop Time Status Last Admin Dose Admin Glucose (Glucose 40% Gel) 15-30 GRAMS 15 GRAMS... UD PRN PO 04/22/16 22:45 05/22/16 22:44 Glucose (Glucose Chew Tab) 4-8 Tablets 4 Tabl... UD PRN PO 04/22/16 22:45 05/22/16 22:44 Dextrose (Dextrose 50% 50ML Syringe) 25-50ML OF 50% DW IV FOR... UD PRN IV 04/22/16 22:45 05/22/16 22:44 Glucagon (Glucagon Inj) 1 mg UD PRN SQ 04/22/16 22:45 05/22/16 22:44 Miscellaneous Information (Consult Glycemic Management Pharmacy) 1 ea DAILY PRN N/A 04/23/16 00:12 05/23/16 00:11 Amiodarone HCl (Cordarone Tab) 200 mg TID PO 04/23/16 09:00 05/23/16 08:59 05/01/16 21:26 200 MG Budesonide (Pulmicort Respules 0.5MG/ 2ML Neb Soln) 0.5 mg Q12R INH 04/23/16 08:00 05/23/16 07:59 05/02/16 07:22 0.5 MG Calcitonin [place] (Fortical Nasal [place]) 1 spray DAILY NA 04/23/16 09:00 05/23/16 08:59 05/01/16 09:27 1 SPRAY Lactobacillus Acidophilus (Floranex Tab) 4 tab BID PO 04/23/16 09:00 05/23/16 08:59 05/01/16 21:23 4 TAB Magnesium Oxide (Mag-Ox Tab) 400 mg BID PO 04/23/16 09:00 05/23/16 08:59 05/01/16 21:26 400 MG Montelukast Sodium (Singulair Tab) 10 mg QPM PO 04/23/16 21:00 05/23/16 20:59 05/01/16 21:24 10 MG Sucralfate (Carafate Susp) 1 gm QID PO 04/23/16 09:00 05/23/16 08:59 05/01/16 21:26 1 GM Calcium/Vitamin D (Caltrate Plus Tab) 1 tab BID PO 04/23/16 09:00 05/23/16 08:59 05/01/16 21:23 1 TAB Nystatin (Mycostatin Powder) 1 appln BID EXT 04/23/16 09:00 05/23/16 08:59 05/01/16 21:22 1 APPLN Miscellaneous Information (Order Awaiting Action) 1 ea QS N/A 04/23/16 08:00 05/23/16 07:59 Chlorhexidine Gluconate (Peridex Oral Soln) 15 ml BID MT 04/23/16 10:00 05/23/16 09:59 05/01/16 21:22 15 ML Haloperidol Lactate (Haldol Inj) 5 mg Q8H PRN IV 04/24/16 14:30 05/24/16 14:29 05/02/16 06:39 5 MG Warfarin Sodium (Coumadin Tab) 5 mg DAILY@16 PO 04/25/16 16:00 05/25/16 15:59 Future Hold 04/27/16 16:10 5 MG Pantoprazole Sodium (Protonix Tab) 40 mg QAM PO 04/26/16 09:00 05/26/16 08:59 05/01/16 09:28 40 MG Metoprolol Tartrate (Lopressor Iv) 5 mg Q6H PRN IV 04/25/16 21:00 05/25/16 20:59 04/29/16 11:25 5 MG Metoprolol Tartrate (Lopressor Tab) 37.5 mg Q12 PO 04/27/16 12:00 05/27/16 11:59 05/01/16 21:23 37.5 MG Ipratropium [place] (Atrovent 0.02% 0.5MG/2.5ML Neb) 0.5 mg Q6R INH 04/29/16 01:30 05/29/16 01:29 05/02/16 07:22 0.5 MG Levalbuterol (Xopenex 1.25MG/ 0.5ML Neb) 1.25 mg Q6R INH 04/29/16 01:30 05/29/16 01:29 05/02/16 07:22 1.25 MG Acetaminophen (Tylenol Soln) 650 mg Q6H PRN PO 04/29/16 11:15 05/29/16 11:14 Insulin Aspart (novoLOG ASPART) SLIDING SCALE ACHS SC 04/30/16 06:45 05/30/16 06:44 05/01/16 21:39 4 UNITS Insulin Glargine 16 unit 16 unit BID SQ 04/30/16 21:00 05/30/16 20:59 05/01/16 21:40 16 UNIT Methylprednisolone Sodium Succinate/ Syringe (Solu-Medrol IV/ Syringe) 0.64 ml @ 1.5 mls/min Q8@0200,1000,1800 IV 05/01/16 18:00 05/31/16 17:59 05/02/16 02:00 1.5 MLS/MIN Enteral Nutritional Formula (Boost Glucose Control) 1 can BID PO 05/01/16 21:00 2/4/17 20:59 Albumin Human 12.5 gm 12.5 gm ONE ONCE IV 05/02/16 08:45 05/02/16 08:46 UNV Furosemide/Syringe (Lasix Inj/ Syringe) 2 ml @ 4 mls/min ONE IV 05/02/16 08:45 06/01/16 08:44 UNV Arformoterol Tartrate (Brovana 15MCG/ 2ML Neb Soln) 15 mcg Q12R INH 05/02/16 20:00 05/29/16 19:59 UNV
[2016-05-02 08:59] LABS: IPAP 20; ISTAT ALLEN TEST Pass; ISTAT ARTERIAL BLOOD GAS HCO3 51 meq/L (19-24); ISTAT ARTERIAL BLOOD GAS PCO2 92 mmHg (35-46); ISTAT ARTERIAL BLOOD GAS PO2 85 mmHg (80-95); ISTAT ARTERIAL BLOOD GAS pH 7.35 (7.35-7.45); ISTAT CARBON DIOXIDE < 5 mEq/l (24-31); ISTAT DELIVERY SYSTEM BIPAP; ISTAT FIO2 50 %; ISTAT RATE 20; ISTAT SITE L Radial
[2016-05-02] MEDS: BOOST GLUCOSE CONTROL PO SCH (09:00)
--- NOTE | 2016-05-02 10:02 | Gastrointestinal Consultation ---
Gastrointestinal Consultation Date of Consultation: May 02, 2016 Consulting Physician: Dr. Peña Reason for Consultation: elevated INR, elevated direct bili History of Present Illness Patient is a 60 year old female with past medical history significant for chronic Respiratory Failure, COPD, Obstructive Sleep Apnea, Obesity Hypoventilation Syndrome, CHF Diastolic Type, that presented to the ED with worsening SOB. GI was consulted for evaluation of elevated INR and elevated direct bili with other elevation of liver enzymes. Patient was on maintenance Coumadin which was d/c 5 days ago. Her PT/INR has continued to elevate, today INR is 6.3 and PT is 73.8. No black or bloody bowel movements. Stool this morning was tested for occult blood. She has new onset elevated direct bili and alkp. Patient was unable to communicate if she is having any abdominal pain. She is in marked respiratory distress. She was supine during part of my assessment while she was being changed. After being prone for a few minutes, respiratory status slightly improved, but still with much distress. I asked if she would be ok to proceed with any noninvasive imaging at this time and she was unable to produce a response. A thorough history and ROS was not completed due to patent's respiratory distress. PT 73.8 INR 6.3 AST 53 ALT 110 ALK P 553 Total Bili 1.9 Direct Bili 1.6 Past Medical/Surgical History Medical Problems: (1) Acidosis Status: Acute (2) Acute and chronic respiratory failure ([id number]) Status: Acute (3) Acute bronchitis Status: Acute (4) Acute respiratory failure Status: Acute (5) Acute respiratory failure with hypoxia Status: Acute (6) Acute respiratory failure with hypoxia and hypercarbia Status: Acute (7) Altered mental status Status: Acute (8) Altered mental status Status: Acute (9) Anemia Status: Acute (10) Atrial fibrillation with RVR Status: Acute (11) Atrial flutter Status: Acute (12) Atrial flutter with rapid ventricular response Status: Acute (13) Atrial flutter with rapid ventricular response Status: Acute (14) Bronchitis Status: Acute (15) Bronchitis Status: Acute (16) Bronchospasm with bronchitis, acute Status: Acute (17) CHF (congestive heart failure) Status: Acute (18) CHF (congestive heart failure) Status: Acute (19) Compression fracture of L2 lumbar vertebra Status: Acute (20) Congestive heart failure Status: Acute (21) Congestive heart failure Status: Acute (22) Contusion of left leg Status: Acute (23) COPD (chronic obstructive pulmonary disease) Status: Acute (24) COPD exacerbation Status: Acute (25) COPD exacerbation Status: Acute (26) Elevated CO2 level Status: Acute (27) Elevated troponin Status: Acute (28) Elevated troponin Status: Acute (29) GI bleed Status: Acute (30) Hypertens NOS-del w/ complication Status: Acute (31) Hypoxia Status: Acute (32) Hypoxia Status: Acute (33) Leukocytosis Status: Acute (34) Pneumonia Status: Acute (35) Pneumonia Status: Acute (36) Sepsis Status: Acute (37) Sepsis Status: Acute (38) Supratherapeutic INR Status: Acute (39) Symptomatic anemia Status: Chronic Family History Diabetes mellitus MOTHER SISTER FH: CHF (congestive heart failure) FATHER FH: COPD (chronic obstructive pulmonary disease) FATHER Hypertension Kidney disease Social History Smoking Status: Former Smoker Alcohol Use: none Drug Use: none Marital Status: Housing Status: lives with family Occupation Status: disabled Allergies Coded Allergies: POLLEN (Verified Allergy, Intermediate, /, 04/22/16) Current Medications Home Meds and Scripts Medications Dose Route/Sig Max Daily Dose Days Date Category Dose Instructions Lasix (Furosemide) 80 Mg Tab 80 Mg PO BID 04/22/16 Reported Incruse Ellipta (Umeclidinium [place]) 62.5 Mcg/Inh Inh 1 Puff PO DAILY 04/22/16 Reported Senna S (Sennosides-Docusate Sodium) 1 Tab Tab 1 Tab PO NOON 04/22/16 Reported Prednisone 10 Mg Tab 10 Mg PO QAM 04/22/16 Reported BEGIN 05/01/16, END 05/31/16 Prednisone 20 Mg Tab 20 Mg PO QAM 3 04/22/16 Reported BEGIN 04/28/16, END 04/30/16 Prednisone 10 Mg Tab 30 Mg PO QAM 3 04/22/16 Reported BEGIN 04/25/16, END 04/27/16 Prednisone Tab (Prednisone) 20 Mg Tab 40 Mg PO QAM 3 04/22/16 Reported BEGIN TODAY 04/22/16, END 04/22/16 Novolog Flexpen (Insulin Aspart) 100 Units/Ml Inj 1 Dose SQ ACHS 04/22/16 Reported 60-1630= 0 UNITS 131-180= 4 UNITS 181-240= 8 UNITS 241-300= 10 UNITS 301-350= 12 UNITS 351-400= 16 UNITS >400 = 20 UNITS AND CALL Nystatin (Nystatin (Topical)) 1 Pow Pow 1 Dose TOP BID 04/22/16 Reported Protonix (Pantoprazole) 40 Mg Tab 40 Mg PO DAILY 04/22/16 Reported Novolog Flexpen (Insulin Aspart) 100 Units/Ml Inj 10 Units SQ QPM 04/22/16 Reported Docusate Sodium 100 Mg Cap 100 Mg PO BID 04/22/16 Reported Miralax (Polyethylene) 17 Gm Pow 17 Gm PO DAILY PRN 30 04/14/16 Rx Ferrous Sulfate 325 Mg Tab 325 Mg PO TID 30 04/14/16 Rx Sucralfate 1 Gm/10 Ml Susp 1 Gm PO QID 30 03/14/16 Rx Gabapentin 100 Mg Cap 200 Mg PO HS 30 03/14/16 Rx Tiazac 360 Mg (Diltiazem Hcl Extended Release) 360 Mg Cap 360 Mg PO DAILY 03/09/16 Reported Klor-Con (Potassium Chloride) 20 Meq Tabcr 20 Meq PO BID 03/09/16 Reported Lasix (Furosemide) 40 Mg Tab 40 Mg PO BID 03/09/16 Reported Cordarone (Amiodarone Hcl) 200 Mg Tab 200 Mg PO TID 03/09/16 Reported Lopressor (Metoprolol Tartrate) 25 Mg Tab 25 Mg PO BID 30 02/29/16 Rx Lantus Solostar (Insulin Glargine) 100 Unit/Ml Inj 30 Unit SC BID 30 02/01/16 Rx [Xopenex] 2 Puffs INH Q4H PRN 01/24/16 Reported Mag-Ox (Magnesium Oxide) 400 Mg Tab 400 Mg PO BID 01/24/16 Reported Floranex (Lactobacillus Acidophilus) 1 Tab Tab 1 Tab PO BID 01/24/16 Reported Miacalcin (Calcitonin ([place])) 200 Unit/Act Spr 1 [place] NA DAILY 01/24/16 Reported ALTERNATE NOSTRILS EVERY DOSE. Coumadin (Warfarin Sod) 5 Mg Tab 2.5 Mg PO DIRECTED 01/24/16 Reported Novolog Flexpen (Insulin Aspart) 100 Units/Ml Inj 18 Units SQ LUNCH 12/31/15 Reported give with lunch Novolog Flexpen (Insulin Aspart) 100 Units/Ml Inj 22 Units SQ BID 12/31/15 Reported give with breakfast/dinner plus sliding scale: goal <180, cf 1:10 with maximum of 12 added units [place]ana (Arformoterol Tartrate) 15 Mcg/2 Ml Neb 15 Mcg NEB Q12 12/31/15 Reported Pulmicort Respules 0.5MG/2ML (Budesonide) Nebu 2 Ml NEB Q12 12/31/15 Reported Montelukast Sodium (Montelukast Sod) 10 Mg Tab 10 Mg PO QPM 12/31/15 Reported Calcium 600+D3 600-400 mg-Unit (Calcium Carbonate-Cholecalcife) 1 Tab Tab 1 Tab PO BID 12/31/15 Reported Duoneb (Ipratropium-Albuterol) 3 Ml Nebu 1 Treatment INH 2-4 TIMES/DAY PRN 11/23/15 Reported Fosamax (Alendronate Sodium) 70 Mg Tab 70 Mg PO WK 07/30/15 Reported TAKE 30 MINUTES PRIOR TO FIRST MEAL OF DAY Citalopram Hydrobromide 20 Mg Tab 20 Mg PO QAM 06/07/13 Reported Januvia (Sitagliptin) 50 Mg Tab 50 Mg PO QAM 12/03/12 Reported Oxygen Gas 3-6 Liters NA UD 11/09/12 Reported USE 3L VIA NASAL CANNULA AT REST. USE 4 LITERS WITH ACTIVITY AND 6 LITERS AT NIGHT WITH cpap Lipitor (Atorvastatin) 10 Mg Tab 10 Mg PO HS 11/09/12 Reported Review of Systems Constitutional: No fever Respiratory: + shortness of breath Cardiac: No chest pain Abdomen: No pain Physical Exam Date Time Temp Pulse Resp B/P Pulse Ox O2 Delivery O2 Flow Rate FiO2 05/02/16 08:00 36.4 91 20 163/84 99 BiPAP 05/02/16 07:22 88 22 100 BiPAP/CPAP 60 05/02/16 07:22 88 100 60 05/02/16 04:05 36.4 85 19 167/89 90 BiPAP 05/02/16 04:00 99 BiPAP 40 05/02/16 02:08 99 26 90 BiPAP/CPAP 40 05/02/16 02:08 99 90 40 05/02/16 00:00 93 BiPAP 40 05/01/16 23:05 36.5 90 22 137/75 92 BiPAP 05/01/16 21:13 103 94 40 05/01/16 21:09 103 22 94 BiPAP/CPAP 40 05/01/16 20:00 36.7 104 25 182/95 98 High Flow Oxygen 40 BiPAP 05/01/16 20:00 99 High Flow Oxygen 40 BiPAP 05/01/16 16:00 93 BiPAP 40 05/01/16 16:00 36.4 83 20 161/95 97 BiPAP 40 05/01/16 14:17 81 96 40 05/01/16 14:05 81 20 96 BiPAP/CPAP 40 05/01/16 12:00 94 BiPAP 40 05/01/16 11:19 36.4 89 20 169/84 97 BiPAP 40 General Appearance: + severe distress Eyes: PERRL ENT: hearing grossly normal Neck: supple Respiratory/Chest: + respiratory distress, + decreased breath sounds, + accessory muscle use Cardiovascular: no gallop, no JVD, no murmur, + tachycardia Abdomen: normal bowel sounds, non tender, soft, no organomegaly, no pulsatile mass Skin: normal color, no jaundice, + pertinent finding (numerous remi of skin breakdown, erythema bilateral lower extremity ) Laboratory Results Last 24 Hours Test 05/01/16 10:25 05/01/16 10:54 05/01/16 16:19 05/01/16 17:59 Activated Partial Thromboplast Time 43.2 SECONDS Partial Thromboplastin Ratio 1.7 Sodium Level 147 mmol/L 145 mmol/L Potassium Level 4.9 mmol/L 4.7 mmol/L Chloride Level 100 mmol/L 96 mmol/L Carbon Dioxide Level 44 mmol/L 53 mmol/L Anion Gap 3.0 mmol/L -4.0 mmol/L Blood Urea Nitrogen 34 mg/dl 33 mg/dl Creatinine 0.36 mg/dl 0.38 mg/dl Est Creatinine Clear Calc Drug Dose 221.2 ml/min 209.6 ml/min Estimated GFR () 133.9 131.6 Estimated GFR (Non- 115.6 113.5 BUN/Creatinine Ratio 95.3 85.8 Random Glucose 161 mg/dl 182 mg/dl Calcium Level 8.7 mg/dl 8.7 mg/dl Total Bilirubin 1.9 mg/dl Direct Bilirubin 1.6 mg/dl Aspartate Amino Transf (AST/SGOT) 61 U/L Alanine Aminotransferase (ALT/SGPT) 111 U/L Alkaline Phosphatase 573 U/L Total Protein 5.4 gm/dl Albumin 2.2 gm/dl Bedside Glucose 160 mg/dl 199 mg/dl Test 05/01/16 21:02 05/02/16 05:02 05/02/16 05:46 05/02/16 08:46 Bedside Glucose 208 mg/dl 185 mg/dl White Blood Count 11.32 K/uL Red Blood Count 2.93 M/uL Hemoglobin 8.0 g/dL Hematocrit 29.0 % Mean Corpuscular Volume 99.0 fL Mean Corpuscular Hemoglobin 27.3 pg Mean Corpuscular Hemoglobin Concent 27.6 g/dl Platelet Count 202 K/uL Mean Platelet Volume 9.5 fL Neutrophils (%) (Auto) 96.6 % Lymphocytes (%) (Auto) 1.2 % Monocytes (%) (Auto) 2.0 % Eosinophils (%) (Auto) 0.0 % Basophils (%) (Auto) 0.0 % Neutrophils # (Auto) 10.93 K/uL Lymphocytes # (Auto) 0.14 K/uL Monocytes # (Auto) 0.23 K/uL Eosinophils # (Auto) 0.00 K/uL Basophils # (Auto) 0.00 K/uL RDW Standard Deviation 69.6 fL RDW Coefficient of Variation 19.1 % Immature Granulocyte % (Auto) 0.2 % Immature Granulocyte # (Auto) 0.02 K/uL Nucleated RBC Absolute Count (auto) 0.04 K/uL Nucleated Red Blood Cells % 0.3 % Basophilic Stippling 1+ Anisocytosis PRESENT Stomatocytes 3+ Prothrombin Time 72.9 SECONDS Prothromb Time International Ratio 6.3 Sodium Level 147 mmol/L Potassium Level 4.6 mmol/L Chloride Level 97 mmol/L Carbon Dioxide Level 48 mmol/L Anion Gap 2.0 mmol/L Blood Urea Nitrogen 36 mg/dl Creatinine 0.33 mg/dl Est Creatinine Clear Calc Drug Dose 241.5 ml/min Estimated GFR () 137.8 Estimated GFR (Non- 118.9 BUN/Creatinine Ratio 108.6 Random Glucose 190 mg/dl Calcium Level 8.5 mg/dl Total Bilirubin 1.9 mg/dl Direct Bilirubin 1.6 mg/dl Aspartate Amino Transf (AST/SGOT) 53 U/L Alanine Aminotransferase (ALT/SGPT) 110 U/L Alkaline Phosphatase 554 U/L Total Protein 5.2 gm/dl Albumin 2.1 gm/dl Blood Gas Sample Site L Radial Bedside Blood Gas pH (LAB) 7.35 Bedside Blood Gas pCO2 (LAB) 92 mmHg Bedside Blood Gas pO2 (LAB) 85 mmHg Bedside Blood Gas HCO3 (LAB) 51 meq/L Bedside Blood Gas Total CO2 < 5 mEq/l Bedside Blood Gas Base Excess (LAB) 26.0 meq/L Bedside Blood Gas O2 Saturation 95.0 % Pablo Test Pass Oxygen Delivery Device BIPAP Bedside Oxygen Rate (breaths/min) 20 Bedside FiO2 50 % Blood Gas IPAP 20 Impression Patient is a 60 year old female with respiratory failure who is being evaluated for elevated PT/INR and elevated liver profile. Differentials include drug induced injury, congestive hepatopathy, biliary obstruction Plan Vit K 5 mg IV daily RUQ US - rule out obstruction Attg addendum: I interviewed and examined pt, reviewed chart and labs. Pt with severe COPD h/o mult admissions for resp failure admit for resp failure now seen for abnl LFTs. Her alk phos, which was mildly elevated on 04/22, has now risen to 500's. She has mild hyperbili to 1.6 Lipase has not been checked recently. She is on coumadin, and had an INR of 2.1 on admission which has subsequently risen to > 6; her plts are preserved. She denies abd exam. On exam, she is in marked resp distress, on Bipap. I cannot detect JVP or Hepatojug reflux, due to her habitus. She has abd wall edema; I cannot appreciate hepatomegaly, due to habitus. She has woody pedal edema. Labs reviewed. A/P: Cholestasis, elevated INR - The elevated INR is likely due to vitamin K deficiency, related to abx use/ poor nutrition/preceding therapy with coumadin. Elevated INR, as well as mildly increased bili, are also likely due to congestive hepatopathy. Would follow INR with vitamin K. - Etiology of alk phos is less clear. THe degree of elevation is high for congestive hepatopathy, although this may be contributing. Drug induced liver injury may be possible - amio can rarely cause alk phos elevation; cholestatic hep is not common with the other meds she has recently been exposed to. Cholestasis, from fasting, or from biliary obstruction may be possible. She should have an ultrasound or CT to look for osman dil; however, given her marked resp insuff, would defer w/u until her resp status is stabilized. Please check a lipase in am, and follow LFT's and GGT.
[2016-05-02] MEDS ORDERED: PHYTONADIONE INJ 5 MG in SODIUM CHLORIDE 0.9% 50ML 50 ML IV SCH (10:15)
--- NOTE | 2016-05-02 13:26 | Pharmacy Progress Note ---
Glycemic Control: Progress Nt Date of Service May 02, 2016. Scope Glycemic Pharmacist consulted by Dr Mahajan on 04/23/16 for glycemic control and to write orders per [facility] inpatient glycemic control protocol. Objective Accuchecks BSG (last 24hrs): Test 05/01/16 16:19 05/01/16 17:59 05/01/16 21:02 05/02/16 05:02 Bedside Glucose 199 mg/dl (70-90) 208 mg/dl (70-90) Random Glucose 182 mg/dl (70-99) 190 mg/dl (70-99) Test 05/02/16 05:46 Bedside Glucose 185 mg/dl (70-90) Laboratory Data (last 24hrs) Test 05/01/16 17:59 05/02/16 05:02 Anion Gap -4.0 mmol/L 2.0 mmol/L BUN/Creatinine Ratio 85.8 108.6 Blood Urea Nitrogen 33 mg/dl 36 mg/dl Creatinine 0.38 mg/dl 0.33 mg/dl Potassium Level 4.7 mmol/L 4.6 mmol/L Sodium Level 145 mmol/L 147 mmol/L White Blood Count 11.32 K/uL Red Blood Count 2.93 M/uL Hemoglobin 8.0 g/dL Hematocrit 29.0 % Mean Corpuscular Volume 99.0 fL Mean Corpuscular Hemoglobin 27.3 pg Mean Corpuscular Hemoglobin Concent 27.6 g/dl Platelet Count 202 K/uL Mean Platelet Volume 9.5 fL Neutrophils (%) (Auto) 96.6 % Lymphocytes (%) (Auto) 1.2 % Monocytes (%) (Auto) 2.0 % Eosinophils (%) (Auto) 0.0 % Basophils (%) (Auto) 0.0 % Neutrophils # (Auto) 10.93 K/uL Lymphocytes # (Auto) 0.14 K/uL Monocytes # (Auto) 0.23 K/uL Eosinophils # (Auto) 0.00 K/uL Basophils # (Auto) 0.00 K/uL HbA1c: 5.8% 04/10/16 Recent Pertinent Medications Outpatient Anti-diabetic Regimen: * Lantus 30 units BID * Novolog 22 units w/ breakfast + 18 units w/ lunch + 22 units w/ dinner + 10 units at bedtime * Sitagliptin 50mg PO Q AM * A1c = 5.8 % 04/10/16 The patient is currently receiving: * Basal insulin: Lantus 16 units every 12 hours; give 1/2 dose if BSG less than 120 * Correctional Insulin: Novolog Correction per scale Q 4 hours Goal Range: Low 140 mg/dL - High 180 mg/dL Correction Factor: 8 mg/dL/unit * Prandial insulin: Per carb ratio of 1 unit per 4 grams CHO consumed * Oral Agents: None currently Risk Factors for Insulin Resistance: * Steroids: Solu-medrol 40mg IV Q 8 hours * Diet: T2DM ordered however PO intake has been poor since extubation on 04/28/16 Assessment & Plan ASSESSMENT: 04/28/16 * Patient is likely to become more insulin sensitive over the next 24 hours: extubated, continuous tube feeds stopped, and steroid dose reduced * BSGs were elevated above goal over the last 24 hrs; most BSGs in the low-mid 200's * I anticipated glycemic control to improve in the near future * She may be at risk for hypoglycemia if Lantus dose is titrated too high and PO intake poor. Will reduce Lantus dose to outpt dose and add "half-dose" parameter as a precaution * Given possibility of changing insulin sensitivity over next 24 hours, will continue Q 4 hr BSGs with Novolog coverage --- and will convert to ACHS checks/ coverage tomorrow if glycemic control improved 04/29/16 * BSGs have ranged 114-163 since extubation yesterday * BSGs have been trending on the lower side today, last 2 BSGs 114-119 while NPO. Lantus dose was held this AM by RN due to NPO status. She may be at risk for hypoglycemia if diet not advanced on the current Lantus dose. Will lower the Lantus dose at this time as a precaution as PO intake uncertain. New dose will be ~50% of home dose. * Novolog CF and CR will be left the same as she typically requires parameters close to this (reviewed past admission data) 04/30/16 * Glycemic control acceptable at this time, BSGs ranged 119-192 over last 24 hours; however BSGs now creeping up on lower basal dose * Fasting BSGs today 187-192 with 27 units of Lantus on board (18 last night + 9 this AM - RN reduced the ordered AM Lantus dose); she is basal insulin deficient at this time. Will give supplemental Lantus dose now to make up for reduced dose given this AM 05/01/16 * BSGs yesterday ranged 185-192 * Fasting BSG improved today, FBS 157-174, with 30 units of basal insulin on board * Would like to keep BSGs between 140-180, fasting BSGs in particular should be closer to 140 - will continue with the same Lantus dose for now - but keep the 1 /2 dose parameter given poor PO intake. She will be starting a higher dose of Solu-medrol this afternoon which may lead to increased insulin resistance. 05/01/16 * BSGs yesterday ranged 157-208mg/dL, fasting 185mg/dL today * Solu-medrol up to 40mg IV q8h for + increase in pleural effusions * No changes needed in regimen at this time * Vitamin K IV started by GI for INR 6.3 PLAN FOR INPATIENT GLYCEMIC CONTROL: * Continue Lantus 16 units SQ BID - give 1/2 dose if BSG less than 120 * Continuing correction factor of 8 mg/dl/unit * Continuing carb ratio of 1 unit per 4 grams CHO consumed * Continuing goal range of Low 140 mg/dL - High 180 mg/dL * Reassess insulin dose with each change in steroid dose * Please note that the plan above was derived based on current level of insulin resistance and hospital stress. These recommendations are appropriate for inpatient admission only. Plan of care upon discharge will need to be reassessed to avoid potential outpatient hypo/hyperglycemia. Thank you.
[2016-05-02] MEDS ORDERED: NURSING VERBAL MED ORDER ONE ×2 (14:15→14:30)
[2016-05-02] MEDS ORDERED: ATROPINE SULFATE 1% OP SOLN 2 ML BTL PO PRN (14:30)
[2016-05-02] MEDS ORDERED: MORPHINE SULF/NSS 250MG/250ML IV PRN (14:30)
--- NOTE | 2016-05-02 14:30 | PULMONARY CONSULTATION ---
DATE OF CONSULTATION: 05/02/2016 TIME: 11:55 a.m. REPORT OF CONSULTATION: The patient was seen in room 110 in the intensive care unit. Pulmonary consultation is requested regarding recurring respiratory failure. The patient is a 60-year-old female with a longstanding history of respiratory problems. She was admitted this time on April 22. She presented in respiratory failure. She was intubated in the Emergency Room. On the , it was reported she had some blood-tinged sputum. She failed a couple of weaning trials. Ultimately, she was extubated on April 28. Her condition has worsened over the past 48 hours. She has been on BiPAP almost continuously. The patient apparently is still a full code, although there has been considerations too otherwise. Her was with her during this examination. Review of her record shows that she had 13 hospital admissions in calendar year 2015, most of which were related to respiratory failure. She has had known severe chronic obstructive pulmonary disease. She has had obesity hypoventilation syndrome. She has sleep apnea. She also had a bronchogenic carcinoma treated with radiation therapy. After her hospital stay from 03/09/2016 until the , she was discharged to [facility] and then was sent to [facility]. Subsequently, she was home but just for a very short period of time and was readmitted. This hospital stay she has probably been worse than any other time. At present she is lethargic but arousable. She kept her eyes closed during the entire evaluation. However, she would nod her head appropriately to questions that I would ask her and she would follow commands. She is not having chest pain. She does have the BiPAP mask on at present. She says she is short of breath even with the BiPAP. Apparently she is not coughing a lot at present. She did have a blood gas done this morning. This showed a pH of 7.35 with a pCO2 of 92 and a pO2 of 85 done on the BiPAP which is reportedly 20/5. She is also on 50% FIO2. Yesterday, for a period of time she was on the high flow nasal oxygen as high as 100%. She was desaturating as soon as the oxygens were turned down. PAST SURGICAL HISTORY: 1. T\T\A. 2. Cholecystectomy. 3. Tubal ligation. PAST MEDICAL HISTORY: 1. Obesity. 2. Atrial flutter. 3. Diastolic CHF. 4. Depression. 5. Reflux. 6. Hypertension. 7. Osteoporosis. 8. COPD. 9. Obstructive sleep apnea. 10. Obesity hypoventilation syndrome. SOCIAL HISTORY: Tobacco [id number] or more of smoking, but none since 2011. ALLERGIES: No known allergies. FAMILY HISTORY: Father secondary to congestive heart failure and COPD. Mother had diabetes. REVIEW OF SYSTEMS: Essentially unobtainable due to patient's status. MEDICATIONS: 1. Brovana q. 12 hours. 2. Methylprednisolone 40 mg IV q. 8 hours. 3. Insulin Lantus by protocol b.i.d.. 4. Insulin by sliding scale. 5. Neb treatments with levalbuterol and ipratropium every 6 hours. 6. Metoprolol 37.5 mg q. 12 hours. 7. Pantoprazole 40 mg daily. 8. Metoprolol 5 mg IV q. 6 hours p.r.n. rapid heart rates. 9. Haldol p.r.n. 10. Montelukast 10 mg daily. 11. Peridex oral solution. 12. Amiodarone 200 mg t.i.d. 13. Calcitonin-Nichols nasal spray 1 daily. 14. Lactobacillus acidophilus 4 tabs b.i.d. 15. Magnesium oxide 400 mg b.i.d. 16. Sucralfate 1 gram q.i.d. 17. Calcium D b.i.d. 18. Mycostatin powder. 19. Pulmicort 0.5 q. 12 hours. PHYSICAL EXAMINATION: GENERAL: The patient is a 60-year-old female who is lethargic but arousable. BMI is severely elevated at 53.8. VITAL SIGNS: Temperature is 36.4. Heart rate is 90 per minute, the rhythm is irregular. Blood pressure 140/64. There was very poor aeration. Scattered rhonchi were heard bilaterally. Oxygen saturation currently is 99%. HEENT: Her face is very puffy and appears cushingoid. This includes her eyes, which are very puffy. She has a BiPAP mask in place and I did not therefore evaluate the nasal passage of the oropharynx. NECK: She has a very large neck. CHEST: Showed diminished excursions. ABDOMEN: Obese. Bowel sounds were present and sounded normal. There was no tenderness to palpation or definite mass. EXTREMITIES: Reveal [id number] edema in both lower extremities. She herself is unable to move to any significant degree. I could not assess her strength in any of the extremities really. Serial chest x-rays have been done during her hospital stay. Initially, of course, she had the endotracheal tube in. She has bilateral interstitial opacities. Fiducial markers are noted in the left suprahilar area. Cannot exclude some basilar opacities that could contain some effusions but it is not clear. The x-rays are portable and of poor quality. She did have a KUB done on April 23. There was a nonobstructive bowel gas pattern. Most recent white count is 11.32, hemoglobin is 8.0, platelets are 202,000. INR today is prolonged at 6.3. Blood gases as noted before 7.35, pCO2 92 and pO2 85 on the BiPAP plus 50%. Electrolytes show sodium 147, potassium 4.6, chloride 97, bicarbonate 48. BUN is 36 with a creatinine of 0.33. Bilirubin was 1.9. AST was 53 and ALT was 110. Alkaline phosphatase was 554. Albumin is only 2.1 and total protein only 5.2. IMPRESSION: 1. Respiratory failure - acute on chronic with increased pCO2 and hypoxia. 2. Chronic obstructive pulmonary disease exacerbation. 3. Obesity hypoventilation syndrome. 4. Obstructive sleep apnea. 5. Lung carcinoma, left upper lobe. COMMENTS AND RECOMMENDATIONS: The patient clearly has end-stage lung disease. At present, she is unable to maintain at all without BiPAP. I think the likelihood of her returning to any kind of normal lifestyle would be very low. I believe if she is put back on the respirator, she would run a high risk of being unable to be weaned. She likely would need tracheostomy. This could entail a long-term custodial at the very minimum. I do not believe a lot of her disease is reversible. Apparently consideration has been given to palliative care. Apparently it is not clear what patient's actual wishes are herself, although she has wanted to have everything done at least up until now. I am not sure if that would be in her best interest. For now therapeutically, I would like to change the BiPAP pressures to 20/12 and see if that would improve her ventilation at all. Otherwise, I agree with all of the various modalities that are currently being done. If patient continues to want to have everything done and she does not resolve, she would need to be reintubated and likely have tracheostomy done. Prognosis is poor. AKANKSHA
--- NOTE | 2016-05-02 14:47 | Palliative Care Progress Note ---
Palliative Care Progress Note Date of Service May 02, 2016. Subjective Pt evaluation today including: conversation w/ patient, conversation w/ family , physical exam, chart review, conversation w/ retail sales vitamin consultant Pain: none PO Intake: none Voiding: croew catheter in place Patient is more short of breath today CO2 increased over night Unable to tolerate being off bipap for even 30 seconds, oxygen saturation dropping into the 70-80s. Patient condition overall decreasing Seen by pulmonology who told patient she would need intubation, likely would need tracheostomy which patient has been refusing Seen by GI for elevated LFTs and elevated INR of 6.3- Vitamin K given Had some melena-appearing stools this AM Overall decline in condition Family meeting was held, see palliative care plan below Review of Systems ROS not obtained due to pain condition Objective Vital Signs Date Time Temp Pulse Resp B/P Pulse Ox O2 Delivery O2 Flow Rate FiO2 05/02/16 12:27 88 96 40 05/02/16 12:25 96 17 93 BiPAP/CPAP 40 05/02/16 12:00 36.2 97 20 165/82 95 BiPAP 05/02/16 08:00 36.4 91 20 163/84 99 BiPAP 05/02/16 07:22 88 22 100 BiPAP/CPAP 60 05/02/16 07:22 88 100 60 05/02/16 04:05 36.4 85 19 167/89 90 BiPAP 05/02/16 04:00 99 BiPAP 40 05/02/16 02:08 99 26 90 BiPAP/CPAP 40 05/02/16 02:08 99 90 40 05/02/16 00:00 93 BiPAP 40 05/01/16 23:05 36.5 90 22 137/75 92 BiPAP 05/01/16 21:13 103 94 40 05/01/16 21:09 103 22 94 BiPAP/CPAP 40 05/01/16 20:00 36.7 104 25 182/95 98 High Flow Oxygen 40 BiPAP 05/01/16 20:00 99 High Flow Oxygen 40 BiPAP 05/01/16 16:00 93 BiPAP 40 05/01/16 16:00 36.4 83 20 161/95 97 BiPAP 40 Physical Exam General Appearance: + mild distress (respiratory), + obese, + pertinent finding (chronically ill appearing) Eyes: + pertinent finding (orbital edema) Neck: no JVD Respiratory/Chest: + respiratory distress, + decreased breath sounds, + rhonchi , + wheezing, + pertinent finding (bipap) Cardiovascular: regular rate, rhythm, + pertinent finding (generalized pitting edema) Abdomen: normal bowel sounds, soft, + pertinent finding (obese abdomen) Neurologic/Psychiatric: + pertinent finding (slightly drowsy but awake and oriented.) Skin: + pertinent finding (dusky) Laboratory Results Last 24 Hours Test 05/01/16 16:19 05/01/16 17:59 05/01/16 21:02 05/02/16 05:02 Bedside Glucose 199 mg/dl 208 mg/dl Sodium Level 145 mmol/L 147 mmol/L Potassium Level 4.7 mmol/L 4.6 mmol/L Chloride Level 96 mmol/L 97 mmol/L Carbon Dioxide Level 53 mmol/L 48 mmol/L Anion Gap -4.0 mmol/L 2.0 mmol/L Blood Urea Nitrogen 33 mg/dl 36 mg/dl Creatinine 0.38 mg/dl 0.33 mg/dl Est Creatinine Clear Calc Drug Dose 209.6 ml/min 241.5 ml/min Estimated GFR () 131.6 137.8 Estimated GFR (Non- 113.5 118.9 BUN/Creatinine Ratio 85.8 108.6 Random Glucose 182 mg/dl 190 mg/dl Calcium Level 8.7 mg/dl 8.5 mg/dl White Blood Count 11.32 K/uL Red Blood Count 2.93 M/uL Hemoglobin 8.0 g/dL Hematocrit 29.0 % Mean Corpuscular Volume 99.0 fL Mean Corpuscular Hemoglobin 27.3 pg Mean Corpuscular Hemoglobin Concent 27.6 g/dl Platelet Count 202 K/uL Mean Platelet Volume 9.5 fL Neutrophils (%) (Auto) 96.6 % Lymphocytes (%) (Auto) 1.2 % Monocytes (%) (Auto) 2.0 % Eosinophils (%) (Auto) 0.0 % Basophils (%) (Auto) 0.0 % Neutrophils # (Auto) 10.93 K/uL Lymphocytes # (Auto) 0.14 K/uL Monocytes # (Auto) 0.23 K/uL Eosinophils # (Auto) 0.00 K/uL Basophils # (Auto) 0.00 K/uL RDW Standard Deviation 69.6 fL RDW Coefficient of Variation 19.1 % Immature Granulocyte % (Auto) 0.2 % Immature Granulocyte # (Auto) 0.02 K/uL Nucleated RBC Absolute Count (auto) 0.04 K/uL Nucleated Red Blood Cells % 0.3 % Basophilic Stippling 1+ Anisocytosis PRESENT Stomatocytes 3+ Prothrombin Time 72.9 SECONDS Prothromb Time International Ratio 6.3 Total Bilirubin 1.9 mg/dl Direct Bilirubin 1.6 mg/dl Aspartate Amino Transf (AST/SGOT) 53 U/L Alanine Aminotransferase (ALT/SGPT) 110 U/L Alkaline Phosphatase 554 U/L Total Protein 5.2 gm/dl Albumin 2.1 gm/dl Test 05/02/16 05:46 05/02/16 08:46 05/02/16 11:15 Bedside Glucose 185 mg/dl Blood Gas Sample Site L Radial Bedside Blood Gas pH (LAB) 7.35 Bedside Blood Gas pCO2 (LAB) 92 mmHg Bedside Blood Gas pO2 (LAB) 85 mmHg Bedside Blood Gas HCO3 (LAB) 51 meq/L Bedside Blood Gas Total CO2 < 5 mEq/l Bedside Blood Gas Base Excess (LAB) 26.0 meq/L Bedside Blood Gas O2 Saturation 95.0 % Pablo Test Pass Oxygen Delivery Device BIPAP Bedside Oxygen Rate (breaths/min) 20 Bedside FiO2 50 % Blood Gas IPAP 20 Fibrinogen 413 mg/dl Assessment and Plan Problem list: Acute on chronic respiratory failure, Bipap-dependent Hypernatremia Hypercapnia Altered mental status Chronic atrial fibrillation Anemia of chronic disease Goals of care Palliative care plan: Family meeting took place with patient, Guero Fitzpatrick, daughter Riri, daughter Kia, Dr. Charles, Cyril Mujica, PA-C, and primary RN Magdalena. Per the patient's wishes, with her family members present, she will be made a DNR/ DNI level 5 resuscitation status. She fully understands that she will pass away from her end-stage disease. She wishes to be made comfortable. Many thanks to Cyril Mujica for his participation in this family meeting. Comfort measures only Morphine gtt, titrate to comfort. Start at 1mg/hr, titrate by 1mg Q15min PRN pain or SOB Discontinue blood sugars and insulin Discontinue PO medications, singulair and Boost Transfer to [facility] when bed available Palliative Performance Scale: 10 % Continued [facility] stay due to: multiple IV medications needed, home environment unsafe for pt Discharge planning: uncertain
[2016-05-02] MEDS ORDERED: ARFORMOTEROL TART 15MCG/2ML VIAL INH SCH (20:00)
[2016-05-02] MEDS ORDERED: ALBUT/IPRATROP 3MG/0.5MG NEB 3 ML VIAL INH PRN (21:30)
[2016-05-02] MEDS: ALBUT/IPRATROP 3MG/0.5MG NEB 3 ML VIAL INH SCH (21:30)
[2016-05-03] VITALS: O2SAT 84
[2016-05-03 00:56] VITALS: PULSE 114; O2SAT 96
[2016-05-03 04:00] VITALS: PULSE 114; O2SAT 94
[2016-05-03] MEDS: ALBUT/IPRATROP 3MG/0.5MG NEB 3 ML VIAL INH SCH ×2 (07:04→11:24)
[2016-05-03 07:05] VITALS: PULSE 81; O2SAT 91
[2016-05-03 07:08] VITALS: PULSE 81; O2SAT 91
[2016-05-03] MEDS: INCRUSE ELLIPTA~ORDER AWAITING ACTION SCH ×2 (07:28→07:29)
[2016-05-03] MEDS ORDERED: ALBUT/IPRATROP 3MG/0.5MG NEB 3 ML VIAL INH SCH (08:00)
[2016-05-03 11:24] VITALS: PULSE 123
--- NOTE | 2016-05-03 14:44 | Progress Note ---
Medicine Progress Note Date & Time of Visit: May 03, 2016 at 14:36. Subjective notified by RN that patient has ceased breathing, no pulse, few minutes after Bipap was removed she was on Morphine drip, comfortable through the day Objective Last 8 Hrs Date Time Temp Pulse Resp B/P Pulse Ox O2 Delivery O2 Flow Rate FiO2 05/03/16 11:24 123 BiPAP/CPAP 50 05/03/16 08:00 BiPAP 05/03/16 07:08 81 91 50 05/03/16 07:05 81 20 91 BiPAP/CPAP 50 Physical Exam: no pupillary reflex no respiration no HR Assessment & Plan 60 year old female with history of Chronic Respiratory Failure-recurrent admission for the same COPD, Obstructive Sleep Apnea, Obesity Hypoventilation Syndrome, CHF Diastolic Type, presenting with progressive shortness of breath x few days. ACUTE ON CHRONIC RESPIRATORY FAILURE multifactorial likely from Acute Diastolic CHF Exacerbation, COPD Exacerbation, possible Pneumonia-HCAP completed empiric abx with Zosyn - extubated, transitioned to Bipap then nasal cannula trial--> put back on BiPap -- 05/02/16: (+) increase in pleural effusion albumin + lasix IV 1 dose ordered Solumedrol increased nebs given -- patient has been Bipap dependent since extubation Palliative care service consulted, patient and family had discussion with Palliative care team, they have decided to transition goal of care to Comfort Measures Only Morphine drip, Atropine ordered pronounced 230pm 05/03/16 HYPERNATREMIA - 1/2 NSS ordered Na improved ELEVATED INR, BILIRUBIN - INR 6.3 no signs of active bleeding - GI consulted ANEMIA OF CHRONIC DISEASE : hx of GI bleed was found not to be a suitable candidate for EGD for severe respiratory failure requires intermittent PRBC transfusion s/p 1 unit of PRBC tx CHRONIC ATRIAL FIBRILLATION on Amio, Metoprolol INR elevated at 6.3 Coumadin held HYPOGLYCEMIA presented with BSG in 30's resolved CHANGED MENTAL STATUS /LETHARGY : resolved due to hypercarbia, CO2 retention , respiratory failure /hypoglycemia mental status improved after above conditions addressed Continued [facility] stay due to: multiple IV medications needed, home environment unsafe for pt Discharge planning: uncertain Current Inpatient Medications: Current Inpatient Medications Medications (Trade) Dose Ordered Sig/Tez Route Start Time Stop Time Status Last Admin Dose Admin Miscellaneous Information 1 ea 1 ea QS N/A 04/23/16 08:00 05/23/16 07:59 Morphine Sulfate/ Dextrose (Morphine Sulf/ Nss 250MG/250ML) 250 ml @ 1 mls/hr Q24H PRN IV 05/02/16 14:30 05/16/16 14:29 05/02/16 15:42 1 MLS/HR Atropine Sulfate (ATROPINE SULFATE 1% Op Soln 2 ML) 4 drops Q4H PRN PO 05/02/16 14:30 06/01/16 14:29 Albuterol/ Ipratropium (Duoneb) 3 ml Q2H PRN INH 05/02/16 21:30 06/01/16 21:29 05/02/16 21:24 3 ML Albuterol/ Ipratropium (Duoneb) 3 ml QIDR INH 05/02/16 21:30 06/02/16 07:59 05/03/16 11:24 3 ML
--- NOTE | 2016-05-03 14:46 | Discharge Summary ---
Discharge Summary Admission Date: Apr 22, 2016 at 22:06 Discharge Date: May 03, 2016 Discharge Disposition: Principal Diagnosis: ACUTE ON CHRONIC RESPIRATORY FAILURE Secondary Diagnoses/Problems: please refer to hospital course below. Procedures: Intubation, Blood Transfusion Consultations: Breakdown Worker, Pulmonary, Palliative Care Admission Information HPI (per Admitting provider): 60 year old female with history of Chronic Respiratory Failure, COPD, Obstructive Sleep Apnea, Obesity Hypoventilation Syndrome, CHF Diastolic Type, presenting with progressive shortness of breath x few days. Patient was recently discharged from [facility] last 04/16/16 for respiratory failure , felt to be from Bipap Noncompliance. She was discharged with Prednisone course. History obtained from ER records as patient was intubated. Attempted to call patient's but no answer. Patient apparently was reporting increased shortness of breath and cough for the past few days. On the day of admission, patient had worsening shortness of breath. She was also found to be hypoglycemic in the 30s. EMS summoned, patient given Dextrose. At the ER, patient was found to be more obtunded and in respiratory distress. She was intubated and started on Propofol. However, patient was then noted to be hypotensive and had to be started on Phenylephrine. When I examined the patient, she opens her eyes to verbal stimuli and follows simple commands- open/close eyes, squeeze examiner's fingers. Physical Exam (per Admitting): General Appearance: WD/WN, + pertinent finding (intubated, not in distress, no accessory muscle use) Head: normocephalic, atraumatic Eyes: normal inspection, PERRL, EOMI, sclerae normal ENT: hearing grossly normal, + pertinent finding ((+) intubated) Neck: no adenopathy, thyroid normal, + pertinent finding (JVD) Respiratory/Chest: + pertinent finding ((+) bilateral crackles, wheezing) Cardiovascular: + irregularly irregular, + pertinent finding (mild lower leg edema, wrapped with dressing) Abdomen/GI: normal bowel sounds, non tender, soft Extremities/Musculoskelatal: + pertinent finding (mild lower leg edema, wrapped with dressing) Neurologic/Psych: + pertinent finding (pupils equal round reactive to light , moves all extremities equally) Skin: normal color, warm/dry Lymphatic: no adenopathy Hospital Course 60 year old female with history of Chronic Respiratory Failure-recurrent admission for the same COPD, Obstructive Sleep Apnea, Obesity Hypoventilation Syndrome, CHF Diastolic Type, presenting with progressive shortness of breath x few days. ACUTE ON CHRONIC RESPIRATORY FAILURE multifactorial likely from Acute Diastolic CHF Exacerbation, COPD Exacerbation, possible Pneumonia-HCAP completed empiric abx with Zosyn - extubated, transitioned to Bipap then nasal cannula trial--> put back on BiPap -- 05/02/16: (+) increase in pleural effusion albumin + lasix IV 1 dose ordered Solumedrol increased nebs given -- patient has been Bipap dependent since extubation Palliative care service consulted, patient and family had discussion with Palliative care team, they have decided to transition goal of care to Comfort Measures Only Morphine drip, Atropine ordered pronounced 230pm 05/03/16 HYPERNATREMIA - 04/28 NSS ordered Na improved ELEVATED INR, BILIRUBIN - INR 6.3 no signs of active bleeding - GI consulted ANEMIA OF CHRONIC DISEASE : hx of GI bleed was found not to be a suitable candidate for EGD for severe respiratory failure requires intermittent PRBC transfusion s/p 1 unit of PRBC tx CHRONIC ATRIAL FIBRILLATION on Amio, Metoprolol INR elevated at 6.3 Coumadin held HYPOGLYCEMIA presented with BSG in 30's resolved CHANGED MENTAL STATUS /LETHARGY : resolved due to hypercarbia, CO2 retention , respiratory failure /hypoglycemia mental status improved after above conditions addressed Total time spent on discharge = 25 minutes This includes examination of the patient, discharge planning, medication reconciliation, and communication with other providers. Discharge Instructions 60 year old female with history of Chronic Respiratory Failure-recurrent admission for the same COPD, Obstructive Sleep Apnea, Obesity Hypoventilation Syndrome, CHF Diastolic Type, presenting with progressive shortness of breath x few days. ACUTE ON CHRONIC RESPIRATORY FAILURE multifactorial likely from Acute Diastolic CHF Exacerbation, COPD Exacerbation, possible Pneumonia-HCAP completed empiric abx with Zosyn - extubated, transitioned to Bipap then nasal cannula trial--> put back on BiPap -- 05/02/16: (+) increase in pleural effusion albumin + lasix IV 1 dose ordered Solumedrol increased nebs given -- patient has been Bipap dependent since extubation Palliative care service consulted, patient and family had discussion with Palliative care team, they have decided to transition goal of care to Comfort Measures Only Morphine drip, Atropine ordered pronounced 230pm 05/03/16 HYPERNATREMIA - 1/2 NSS ordered Na improved ELEVATED INR, BILIRUBIN - INR 6.3 no signs of active bleeding - GI consulted ANEMIA OF CHRONIC DISEASE : hx of GI bleed was found not to be a suitable candidate for EGD for severe respiratory failure requires intermittent PRBC transfusion s/p 1 unit of PRBC tx CHRONIC ATRIAL FIBRILLATION on Amio, Metoprolol INR elevated at 6.3 Coumadin held HYPOGLYCEMIA presented with BSG in 30's resolved CHANGED MENTAL STATUS /LETHARGY : resolved due to hypercarbia, CO2 retention , respiratory failure /hypoglycemia mental status improved after above conditions addressed Continued [facility] stay due to: multiple IV medications needed, home environment unsafe for pt Discharge planning: uncertain
== END 2016-05-03 17:25 | disposition expired | DRG 207 ==
LOC: ENRESERVDT → ENRESERVTM → EDBD 18:05 → C.EDC 18:11 → C.MSICU 22:06 → C.4E 05-02 17:11
PROVIDERS: ADMIT Internal Medicine; ATTEND Internal Medicine
PROC: 02HV33Z Insertion of Infusion Device into Superior Vena Cava, Percutaneous Approach (ICD-10-PCS; principal; 2016-04-22)
PROC: 5A1955Z Respiratory Ventilation, Greater than 96 Consecutive Hours (ICD-10-PCS; principal; 2016-04-22)
PROC: 0BH17EZ Insertion of Endotracheal Airway into Trachea, Via Natural or Artificial Opening (ICD-10-PCS; principal; 2016-04-22)
DX: J96.21 Acute and chronic respiratory failure with hypoxia (principal); Z51.5 Encounter for palliative care; J44.1 Chronic obstructive pulmonary disease with (acute) exacerbation; C34.12 Malignant neoplasm of upper lobe, left bronchus or lung; I50.33 Acute on chronic diastolic (congestive) heart failure; C34.92 Malignant neoplasm of unspecified part of left bronchus or lung; E66.2 Morbid (severe) obesity with alveolar hypoventilation; J18.9 Pneumonia, unspecified organism; E87.0 Hyperosmolality and hypernatremia; D63.8 Anemia in other chronic diseases classified elsewhere; E11.649 Type 2 diabetes mellitus with hypoglycemia without coma; K21.9 Gastro-esophageal reflux disease without esophagitis; F32.9 Major depressive disorder, single episode, unspecified; M81.0 Age-related osteoporosis without current pathological fracture; I48.2 Chronic atrial fibrillation; Z83.3 Family history of diabetes mellitus; Z87.891 Personal history of nicotine dependence; Z91.19 Patient's noncompliance with other medical treatment and regimen